=== PATIENT | male | born 1945 | race Two or more races ===

== ENCOUNTER → 2018-07-08 | Outpatient (CLI) | payer MEDICARE ==
--- NOTE | 2018-07-08 09:03 | US ---
EXAMINATION TYPE: US duplex aorta DATE OF EXAM: 07/08/2018 COMPARISON: NONE CLINICAL HISTORY: Z13.6 screening for cardiovascular disorders. EXAM MEASUREMENTS: Abdominal Aorta: Proximal: 1.8 cm Mid: 1.5 cm Distal: 1.5 cm Bifurcation: jim 1.0 cm machelle 0.9 cm IMPRESSION: No evidence for abdominal aortic aneurysm
== END ==
LOC: RADUSWWP 08:14
PROVIDERS: ATTEND Internal Medicine
DX: Z13.6 Encounter for screening for cardiovascular disorders (principal)
CPT/HCPCS: 93979

== ENCOUNTER → 2019-10-14 | Outpatient (CLI) | payer MEDICARE | END | disposition home or self-care (01) | LOC: LABWHC1 11:52 | PROVIDERS: ATTEND Internal Medicine Interventional Cardiology | DX: Z11.59 Encounter for screening for other viral diseases (principal) | CPT/HCPCS: 87635 ==

== ENCOUNTER 2019-10-17 11:23 | Day surgery (SDC) | payer MEDICARE ==
[2019-10-13 14:53] VITALS: BMI 22.6
[~2019-10-17 11:23] MED LIST: ALPRAZolam 0.25 MG TAB PO PRN; ALPRAZolam 0.5 MG TAB PO PRN; ASPIRIN 325 MG TAB PO ONE; ATORVASTATIN 80 MG TAB PO ONE; NITROGLYCERIN SL TABS 0.4 MG TAB SUBLINGUAL PRN; SODIUM CHLORIDE 0.9% 1,000 ML in EMPTY BAG 1 BAG IV ONE
[2019-10-17 12:11] LABS: Glucose,Whole Blood 169 mg/dL (75-99)
[2019-10-17] MEDS ORDERED: SODIUM CHLORIDE 0.9% 1,000 ML IV ONE (12:12)
[2019-10-17 12:15] VITALS: RESP 16
[2019-10-17 12:26] LABS: Basophils # (A) 0.1 k/uL (0-0.2); Basophils % (A) 1 %; Eosinophils # (A) 0.2 k/uL (0-0.7); Eosinophils % (A) 4 %; HCT 41.9 % (39.0-53.0); HGB 13.9 gm/dL (13.0-17.5); Lymphocytes # (A) 1.3 k/uL (1.0-4.8); Lymphocytes % (A) 24 %; MCH 28.8 pg (25.0-35.0); MCHC 33.2 g/dL (31.0-37.0); MCV 86.8 fL (80.0-100.0); Mean Platelet Volume 7.7; Monocytes # (A) 0.4 k/uL (0-1.0); Monocytes % (A) 7 %; Neutrophils # (A) 3.5 k/uL (1.3-7.7); Neutrophils % (A) 62 %; Platelet Count 160 k/uL (150-450); RBC 4.83 m/uL (4.30-5.90); RDW 13.4 % (11.5-15.5); WBC 5.6 k/uL (3.8-10.6)
[2019-10-17 12:44] LABS: African American GFR (CKD) >90 (>60 ml/min/1.73 sqM); Anion Gap 11 mmol/L; Blood Urea Nitrogen 25 mg/dL (9-20); Calcium 9.4 mg/dL (8.4-10.2); Carbon Dioxide 18 mmol/L (22-30); Chloride 110 mmol/L (98-107); Glucose 177 mg/dL (74-99); Non-African American GFR(CKD) 83 (>60 ml/min/1.73 sqM); Sodium 139 mmol/L (137-145)
[2019-10-17 12:51] LABS: Potassium 5.3 mmol/L (3.5-5.1)
[2019-10-17] MEDS ORDERED: MIDAZOLAM 2 MG/2 ML VIAL IVP ONE (14:02)
[2019-10-17] MEDS ORDERED: LIDOCAINE 1% INJ 10MG/ML (20 ML MDV) SQ ONE (14:06)
[2019-10-17] MEDS ORDERED: IOPAMIDOL-250 50ML BTL INTRAARTER ONE (14:26)
[2019-10-17] MEDS ORDERED: IOPAMIDOL-250 100ML BTL INTRAARTER ONE (14:26)
[2019-10-17] MEDS ORDERED: IOPAMIDOL-370 125ML BTL INJ ONE (14:27)
[2019-10-17] MEDS ORDERED: SODIUM CHLORIDE 0.9% 1,000 ML IV SCH (14:30)
[2019-10-17] MEDS ORDERED: RX INFO: IV CONTRAST WAS GIVEN 1 EACH MISC MISCELLANE PRN (14:30)
--- NOTE | 2019-10-17 15:47 | IR ---
Fluoroscopy HISTORY: Pain in right leg 3.2 minutes fluoroscopy time supplied to the referring clinician. 545 intraoperative C-arm images do cument the procedure. See dictated report from cardiology.
[2019-10-17 20:15] VITALS: BP 135/63; PULSE 57; TEMP 97.7
--- NOTE | 2019-10-17 22:21 | CC ---
CARDIAC CATHETERIZATION REPORT DATE OF SERVICE: 10/17/2019 PERFORMING PHYSICIAN: Kye Newby M.D. PROCEDURE PERFORMED: Selective right and left coronary angiogram. INDICATION: This is a 74-year-old gentleman with coronary artery disease and prior stenting of the right coronary artery as well as hypertension and dyslipidemia and peripheral arterial disease, who was experiencing symptoms of chest discomfort with exertion concerning for severe underlying coronary artery disease. Because of that, heart catheterization was advised. APPROACH: Right common femoral artery. COMPLICATIONS: None. LEVEL OF SEDATION: Moderate. PROCEDURE DESCRIPTION: After obtaining informed consent, the patient was brought to the cardiac labor relations consultant. The right common femoral artery was cannulated using micropuncture technique. The micropuncture wire passed easily. Then I placed a 6-Mohawk sheath at the right common femoral artery. After that I did selective right and left coronary angiogram with JR4 and JL4 catheters. The procedure was completed without any complication. SELECTIVE CORONARY ANGIOGRAM: 1. The right coronary artery is a large-caliber vessel and it is a dominant vessel. The RCA is chronically occluded in the distal portion. It fills by collateral from the left coronary system. The RCA seems to be occluded in-stent. The very proximal RCA has 60% to 70% lesion and the mid RCA had another 80% to 90% lesion. 2. The left main has mild disease only. It bifurcates into LCX and LAD. 3. The LCX is a large-caliber vessel. It is a nondominant vessel. The proximal LCX is angiographically normal and gives rise to an OM1 which seems to be normal. The mid LCX is normal and gives rise to a second obtuse marginal branch which is a small- caliber vessel and seems to be angiographically normal. The LCX continues after that as a medium-caliber vessel in the AV groove. 4. The LAD is a large-caliber vessel. The LAD itself appeared to have mild disease only. It does reach and wrap around the apex and also gives collateral to the right coronary system. The LAD gives rise to first, second and third diagonal branches, and they are all small- to medium-caliber vessels. CONCLUSION: 1. Chronic total occlusion of the distal right coronary artery which seems to be in- stent occlusion. 2. Mild to moderate nonobstructive disease involving the left coronary system. POST-PROCEDURE MANAGEMENT: 1. I would try maximized medical treatment at this point. 2. If the patient continues to be symptomatic on maximized medical treatment, will try doing PCI of the distal right coronary artery. MMMICHELLE / IJN: [id number] /
--- NOTE | 2019-10-18 00:05 | AN ---
ANGIOGRAPHY REPORT DATE OF SERVICE: October 17, 2019. PERFORMING PHYSICIAN: Kye Newby MD. PROCEDURE PERFORMED: 1. An abdominal aortogram. 2. Bilateral lower extremities runoff. INDICATION: This is a 74-year-old gentleman with history of peripheral arterial disease and prior revascularization in the past with unknown details, was experiencing severe bilateral lower extremities intermittent claudication. He was brought today to undergo an aortogram with runoff. APPROACH: Right common femoral artery. COMPLICATION: None. LEVEL OF SEDATION: Moderate. PROCEDURE DESCRIPTION: Please refer to diagnostic heart catheterization that was performed earlier today for access description. After the heart catheterization was performed, I advanced a pigtail catheter into the abdominal aorta at the level of the renal arteries then it was pulled back into above the bifurcation of the aorta to right and left common iliac arteries. The procedure was completed without any complication. SELECTIVE PERIPHERAL ANGIOGRAM: 1. The aorta appeared to be calcified with mild disease only. 2. Common Iliac Arteries: Both appear to have mild disease only. 3. Internal Iliac Arteries: Both appeared to be patent. 4. External Iliac Arteries: Both appear to have mild disease only. 5. Common Femoral Arteries: Both appear to have mild to moderate diffuse disease. 6. Profunda: Both are patent. 7. SFA: The right SFA appeared to have a tight lesion in the distal portion as well as the left SFA. 8. Popliteal: The right popliteal appeared to be occluded at the level of the Stanton canal and reconstitutes above the knee and the left popliteal appeared to have a tight lesion. 9. Below the knee: There is one vessel runoff below the knee on the right side with the peroneal and 2 vessels runoff below the knee on the left side with posterior tibial and peroneal. CONCLUSION: 1. Mild aortoiliac disease as described above. 2. Severe femoral-popliteal disease with severe bilateral SFA disease as well as occluded right popliteal and severe disease involving the left popliteal. 3. One vessel runoff below the knee on the right side with peroneal and two vessels runoff below the knee on the left side with posterior tibial and peroneal. POSTPROCEDURE MANAGEMENT: HARDNESS INSPECTOR of the right and left SFA as well as popliteals. MMODL / IJN: [id number] /
--- NOTE | 2019-10-20 10:57 | CDI ---
Outpatient Documentation Clarification Form Date: 10/20/19 CDS/Application Support Intern Name: Asia Robles Phone: If any questions, call Annelise Cates Exercise Instructor at [phone] Patient Name: Julio Mead Admit Date: 10/17/19 Discharge Date: 10/17/19 ATTENTION: The [facility] Coding Staff appreciate your assistance in clarifying documentation. Please respond to the clarification below the line at the bottom and electronically sign. The [facility] Coding staff will review the response and follow-up if needed. Please note: Queries are made part of the Legal Health Record. If you have any questions, please contact the Exercise Instructor. Dear Dr. Gilliland, Please provide clarification as to whether there was stenosis in the previously placed stent. In order to follow guidelines of coding We cannot code diagnoses documented as "probable", "suspected", "questionable", "rule out", or "workng diagnosis" or similar terms indicating uncertainty. Please clarify Thank you for your kind consideration. MTDD
--- NOTE | 2019-11-04 08:35 | CDI ---
Outpatient Documentation Clarification Form Date: 11/04/19 CDS/Mail Clerks Supervisor Name: Asia Robles Phone: If any questions, call Annelise Cates Web Page Designer at [phone] Patient Name: Julio Mead Admit Date: 10/17/19 Discharge Date: 10/17/19 ATTENTION: The [facility] Coding Staff appreciate your assistance in clarifying documentation. Please respond to the clarification below the line at the bottom and electronically sign. The [facility] Coding staff will review the response and follow-up if needed. Please note: Queries are made part of the Legal Health Record. If you have any questions, please contact the Web Page Designer. Dear Dr. Gilliland, Please provide clarification as to in [facility] artery the previous stent was placed. The H&*P states that a stent was previously placed the the LAD. The procedure note documents that it was placed in the RCA. Also please provide clarification as to whether there was stenosis in the previously placed stent. In order to follow guidelines of coding We cannot code diagnoses documented as "probable", "suspected", "questionable", "rule out", or "workng diagnosis" or similar terms indicating uncertainty. The procedure note documents that the RCA was occluded then proceeds to state that the RCA "seems to be" occluded in- stent. Please clarify In stent Thank you for your kind consideration. URI
== END 2019-10-17 22:05 | disposition home or self-care (01) ==
LOC: CATHCVL 11:23 → 3SCARD 19:54 → CATHCVL 22:05
PROVIDERS: ATTEND Internal Medicine Interventional Cardiology
DX: I25.110 Atherosclerotic heart disease of native coronary artery with unstable angina pectoris (principal); T82.855A Stenosis of coronary artery stent, initial encounter; I25.82 Chronic total occlusion of coronary artery; R94.39 Abnormal result of other cardiovascular function study; E11.51 Type 2 diabetes mellitus with diabetic peripheral angiopathy without gangrene; I70.213 Atherosclerosis of native arteries of extremities with intermittent claudication, bilateral legs; I10 Essential (primary) hypertension; Z87.891 Personal history of nicotine dependence; E78.00 Pure hypercholesterolemia, unspecified; Z79.84 Long term (current) use of oral hypoglycemic drugs; E78.5 Hyperlipidemia, unspecified; Z95.5 Presence of coronary angioplasty implant and graft; Z79.02 Long term (current) use of antithrombotics/antiplatelets; Z79.82 Long term (current) use of aspirin
CPT/HCPCS: 93454; 75625; 75716; 80048; 85025; J2250; J2001; Q9966 ×2; Q9967

== ENCOUNTER 2019-11-11 06:11 | Day surgery (SDC) | payer MEDICARE ==
[2019-11-09 12:01] VITALS: BMI 22.5
[2019-11-11] MEDS: SODIUM CHLORIDE 0.9% 1,000 ML IV SCH ×2 (07:05→18:47)
[2019-11-11 07:09] LABS: Glucose,Whole Blood 146 mg/dL (75-99)
[2019-11-11] MEDS: MIDAZOLAM 2 MG/2 ML VIAL IV ONE ×4 (07:37→09:49)
[2019-11-11] MEDS: LIDOCAINE 1% INJ 10MG/ML (20 ML MDV) SQ ONE ×2 (07:52→09:45)
[2019-11-11 07:54] LABS: Albumin 3.9 g/dL (3.5-5.0); Calcium 8.9 mg/dL (8.4-10.2); Potassium 4.3 mmol/L (3.5-5.1); Total Bilirubin 0.2 mg/dL (0.2-1.3)
[2019-11-11] MEDS: HEPARIN SODIUM 1,000 UN/ML (10ML VL) IV ONE ×2 (07:55→09:53)
[2019-11-11] MEDS ORDERED: SODIUM CHLORIDE 0.9% 500 ML 500 ML with niCARdipine 6.25 MG, NITROGLYCERIN-D5W PMX 0.05... IV ONE ×4 (10:00)
[2019-11-11] MEDS: fentaNYL (PF) 50 MCG/ML 2 ML AMP IV ONE ×2 (10:22→10:55)
[2019-11-11] MEDS ORDERED: niCARdipine Syringe (1,000 mcg/10 mL) INTRAARTER ONE (10:50)
[2019-11-11] MEDS ORDERED: NITROGLYCERIN 1000MCG/10ML SYRINGE INTRAARTER ONE (10:50)
[2019-11-11] MEDS ORDERED: CLOPIDOGREL 75 MG TAB PO ONE (11:26)
[2019-11-11] MEDS ORDERED: IOPAMIDOL-250 100ML BTL INTRAARTER ONE (11:45)
[2019-11-11] MEDS ORDERED: SODIUM CHLORIDE 0.9% 1,000 ML in EMPTY BAG 1 BAG IV SCH (12:00)
--- NOTE | 2019-11-11 13:36 | IR ---
Fluoroscopy HISTORY: Right leg pain 96.7 minutes fluoroscopy time supplied to the referring clinician. 715 intraoperative C-arm images d ocument the procedure. See dictated report from cardiology.
[2019-11-11 16:17] LABS: Glucose,Whole Blood 133 mg/dL (75-99)
--- NOTE | 2019-11-11 16:38 | LTR ---
November 11, 2019 To: Dr. Ang Mendenhall Re: Julio Mead (41) Dear Dr. Mendenhall: MrAdrienne Mead underwent today successful opening totally occluded right femoral artery and right popliteal artery with an excellent angiographic and without any complication. I want to thank you for allowing us to participate in his care. Please do not hesitate to call with any questions or concerns. Sincerely, MD AIRAM Olson / ROBERT: [id number] /
[2019-11-11 20:09] LABS: Glucose,Whole Blood 153 mg/dL (75-99)
[2019-11-11] MEDS ORDERED: ATORVASTATIN 20 MG TAB PO SCH (21:00)
[2019-11-11 21:26] VITALS: RESP 16
--- NOTE | 2019-11-11 21:59 | PCN ---
PROCEDURE NOTE DATE OF PROCEDURE: 11/11/2019 PROCEDURES PERFORMED: 1. Successful stenting of the right superficial femoral artery and right popliteal using 7.0 x 140 and 6.0 x 140 mm Zilver PTX drug-coated stent with excellent angiographic results. 2. Successful balloon angioplasty of the right popliteal and right posterior tibial artery with excellent angiographic results. 3. Selective angiogram of the right superficial femoral artery, right popliteal, right posterior tibial artery and left common femoral artery. INDICATION: This is a pleasant 74-year-old gentleman with diabetes, coronary artery disease, hypertension and dyslipidemia who was experiencing right leg intermittent claudication interfering with his daily activity 2A. He underwent an angiogram which revealed chronic total occlusion of the right SFA. He was brought today to undergo an intervention. APPROACH: Left common femoral artery and right posterior tibial artery. COMPLICATIONS: None. LEVEL OF SEDATION: Moderate, with sedation length of 226 minutes. PROCEDURE DESCRIPTION: After obtaining informed consent, the patient was brought to the cardiac r&d lab technician. The left common femoral artery was cannulated using micropuncture technique. The micropuncture wire passed easily. Then I placed a 6-Libyan 11 cm sheath at the left common femoral artery. At that point, anticoagulation was initiated using heparin with 6000 units at the beginning of the procedure with continuous ACT monitoring throughout the procedure. Subsequently I did select the right SFA using an 0.035 Gordon Advantage wire with the backup support of 5-Libyan RIM catheter. After that I did exchange my 11 cm 6-Libyan sheath for a 70 cm 6-Libyan sheath using 0.035 Gordon Advantage wire. Subsequently I did right lower extremity angiogram which revealed one-vessel runoff below the knee with peroneal artery as well as severe disease involving the distal right popliteal as well as chronic total occlusion of the right SFA. Attempting to cross the chronic total occlusion of the right SFA in antegrade technique was unsuccessful in spite of using an 0.014 wire, 0.018 wire, and an 0.035 shaft wire. Because of that, I decided to cross the CASINO CONTROLLER in retrograde technique using pedal access. At that point I accessed the right posterior tibial artery using micropuncture technique under ultrasound guidance, and then I placed a 5/6 slender sheath. Subsequently, continuous infusion of heparin, verapamil and nitroglycerin was initiated throughout the side-arm of the sheath. After that I was able to cross the chronic total occlusion of the right SFA using an 0.018 Davila-tip Glidewire. The wire was advanced all the way to the proximal right SFA and I injected contrast in the SFA to prove that I was in the true lumen. After that I did exchange my 0.018 Davila-tip Glidewire for an 0.018 stiff wire. I did not do atherectomy because I was in subintimal space. I did balloon angioplasty using a 5 mm chocolate balloon. The following angiogram showed inadequate angiographic results in the right SFA and proximal right popliteal, but good angiographic results in the distal right popliteal. At that point I did stent the right SFA and right popliteal using Zilver PTX drug-coated stent and I placed a 7.0 x 140 and 6.0 x 140 mm. For the right popliteal below the knee, I did WORKPLACE RELATIONS ADVISER ballooning using a drug-coated balloon which was 5 x 80 mm. Finally, for the right posterior tibial artery which was occluded, I did balloon angioplasty using a 2.5 mm balloon. The final angiogram showed excellent angiographic results. The pedal sheath was pulled out. Subsequently I did exchange my long sheath for a short sheath and then I did selective left common femoral artery angiogram. The procedure was completed without any complication. POST-PROCEDURE MANAGEMENT: 1. Dual anti-platelet therapy. 2. Risk factor modifications. 3. Follow up with the patient. MMODL / IJN: [id number] /
[2019-11-12] MEDS: SODIUM CHLORIDE 0.9% 1,000 ML IV SCH ×2 (02:49→09:12)
[2019-11-12 06:09] LABS: Glucose,Whole Blood 161 mg/dL (75-99)
[2019-11-12 08:06] LABS: Basophils % (A) 1 %; Eosinophils # (A) 0.2 k/uL (0-0.7); Eosinophils % (A) 3 %; HCT 37.3 % (39.0-53.0); HGB 12.3 gm/dL (13.0-17.5); Lymphocytes # (A) 1.1 k/uL (1.0-4.8); Lymphocytes % (A) 18 %; MCH 28.8 pg (25.0-35.0); MCHC 33.1 g/dL (31.0-37.0); MCV 87.2 fL (80.0-100.0); Mean Platelet Volume 7.4; Monocytes # (A) 0.3 k/uL (0-1.0); Monocytes % (A) 5 %; Neutrophils # (A) 4.4 k/uL (1.3-7.7); Neutrophils % (A) 72 %; Platelet Count 162 k/uL (150-450); RBC 4.28 m/uL (4.30-5.90); RDW 13.4 % (11.5-15.5); WBC 6.1 k/uL (3.8-10.6)
[2019-11-12 08:26] LABS: African American GFR (CKD) >90 (>60 ml/min/1.73 sqM); Anion Gap 5 mmol/L; Blood Urea Nitrogen 15 mg/dL (9-20); Calcium 8.7 mg/dL (8.4-10.2); Carbon Dioxide 24 mmol/L (22-30); Chloride 110 mmol/L (98-107); Glucose 148 mg/dL (74-99); Non-African American GFR(CKD) 83 (>60 ml/min/1.73 sqM); Potassium 4.3 mmol/L (3.5-5.1); Sodium 139 mmol/L (137-145)
--- NOTE | 2019-11-12 08:47 | P.DS ---
Providers Date of admission: 11/11/2019 Attending physician: Kye Newby Primary care physician: [facility] Course: This is a 74-year-old gentleman with coronary artery disease and peripheral arterial disease as well as diabetes and history of smoking was experiencing bilateral lower extremities intermittent claudication worse on the right side than the left side. He underwent an angiogram recently and that showed chronic total occlusion of the distal right SFA and right popliteal with extremely calcified peripheral arterial system. Yesterday he underwent successful recanalizing the STATE GAME PROTECTOR of the right SFA and right popliteal with a very complex and long procedure lasted about 3 and half hours and by the end I was able to recanalize the right SFA and right popliteal in retrograde technique from pedal stick. The patient was seen this morning. The right foot is very warm. I am able to feel dorsalis pedis pulse. The right popliteal pulse is excellent. The patient left groin which was the access site is soft and nontender and without any br uises. His right calf seems to be slightly tender and swollen. I anticipate that because of increased blood flow to the right leg. I am going also to rule out deep venous thrombosis by obtaining venous duplex study. The chance of having DVT is very minimal but will rule out completely. If he has no DVT by duplex study, the patient would be going to be discharged home on dual antiplatelet therapy along with statin. Also I did review the blood work which included a CBC and BMP and that came in to be unremarkable. I will follow-up with the patient next week in the office Plan - Discharge Summary Discharge Rx Participant: No New Discharge Prescriptions: New Atorvastatin [Lipitor] 20 mg PO HS #90 tab Clopidogrel [Plavix] 75 mg PO DAILY #90 tab Continue Ascorbic Acid [Vitamin C] 500 mg PO DAILY Zinc. 180 mg PO DAILY Super Beta Prosate 1 tablet PO DAILY Cholecalciferol (Vitamin D3) [Vitamin D3] 250 mcg PO DAILY Aspirin [Adult Low Dose Aspirin EC] 81 mg PO DAILY Metoprolol Succinate [Toprol XL] 25 mg PO DAILY Nitroglycerin 0.4 mg SL DIRECTED PRN PRN Reason: Chest Pain Discontinued Cilostazol [Pletal] 100 mg PO DAILY metFORMIN HCL [Glucophage] 500 mg PO QAM Discharge Medication List Ascorbic Acid [Vitamin C] 500 mg PO DAILY 10/13/19 [History] Aspirin [Adult Low Dose Aspirin EC] 81 mg PO DAILY 10/13/19 [History] Cholecalciferol (Vitamin D3) [Vitamin D3] 250 mcg PO DAILY 10/13/19 [History] Super Beta Prosate 1 tablet PO DAILY 10/13/19 [History] Zinc. 180 mg PO DAILY 10/13/19 [History] Metoprolol Succinate [Toprol XL] 25 mg PO DAILY 11/09/19 [History] Nitroglycerin 0.4 mg SL DIRECTED PRN 11/09/19 [History] Atorvastatin [Lipitor] 20 mg PO HS #90 tab 11/12/19 [Rx] Clopidogrel [Plavix] 75 mg PO DAILY #90 tab 11/12/19 [Rx] Follow up Appointment(s)/Referral(s): Kye Newby MD [STAFF PHYSICIAN] - 1 Week
[2019-11-12] MEDS ORDERED: [UNRECOGNIZED DRUG - OTHER] PO SCH (09:00)
[2019-11-12] MEDS ORDERED: ASPIRIN 81 MG PO SCH (09:00)
[2019-11-12] MEDS ORDERED: METOPROLOL SUCCINATE (ER) 25 MG TAB.ER.24H PO SCH (09:00)
[2019-11-12] MEDS ORDERED: CHOLECALCIFEROL 400 UNIT TAB PO SCH (09:00)
[2019-11-12] MEDS ORDERED: ZINC SULFATE 220 MG CAP PO SCH (09:00)
[2019-11-12] MEDS ORDERED: CLOPIDOGREL 75 MG TAB PO SCH (09:00)
[2019-11-12] MEDS ORDERED: ASCORBIC ACID 500 MG TAB PO SCH (09:00)
[2019-11-12] MEDS ORDERED: cilostazoL 100 MG TAB PO SCH (09:00)
--- NOTE | 2019-11-12 09:46 | US ---
EXAMINATION TYPE: US venous doppler duplex LE RT DATE OF EXAM: 11/12/2019 8:41 AM COMPARISON: NONE CLINICAL HISTORY: Edema-check for DVT. SIDE PERFORMED: Right TECHNIQUE: The lower extremity deep venous system is examined utilizing real time linear array sonog dylon with graded compression, doppler sonography and color-flow sonography. VESSELS IMAGED: External Iliac Vein (EIV) Common Femoral Vein Deep Femoral Vein Greater Saphenous Vein * Femoral Vein Popliteal Vein Small Saphenous Vein * Proximal Calf Veins (* superficial vessels) Right Leg: Negative for DVT No popliteal fossa lesion is seen. IMPRESSION: THIS EXAMINATION IS NEGATIVE FOR DVT WITHIN THE RIGHT LEG.
[2019-11-12 10:26] VITALS: BP 144/67; PULSE 67; TEMP 97.9
== END 2019-11-12 11:30 | disposition home or self-care (01) ==
LOC: CATHCVL 06:11 → 3SCARD 11:48 → CATHCVL 11-12 11:30
PROVIDERS: ATTEND Internal Medicine Interventional Cardiology
DX: I70.213 Atherosclerosis of native arteries of extremities with intermittent claudication, bilateral legs (principal); R60.0 Localized edema; M79.89 Other specified soft tissue disorders; E11.51 Type 2 diabetes mellitus with diabetic peripheral angiopathy without gangrene; I25.10 Atherosclerotic heart disease of native coronary artery without angina pectoris; I70.92 Chronic total occlusion of artery of the extremities; Z79.84 Long term (current) use of oral hypoglycemic drugs; I10 Essential (primary) hypertension; E78.5 Hyperlipidemia, unspecified; Z95.5 Presence of coronary angioplasty implant and graft; Z87.891 Personal history of nicotine dependence; Z79.82 Long term (current) use of aspirin; Z79.899 Other long term (current) drug therapy
CPT/HCPCS: 37226; 85347; 80053; 80048; 85025; 93971; C1894; C1725 ×4; C1769 ×6; C1887; C2623; C1874; J2250; J1644 ×2; J2001; J3010; Q9966

== ENCOUNTER 2020-10-31 05:40 | Day surgery (SDC) | payer MEDICARE ==
[2020-10-26 11:10] VITALS: BMI 23.3
[2020-10-31] MEDS ORDERED: ALPRAZolam 0.25 MG TAB PO PRN (05:56)
[2020-10-31] MEDS ORDERED: SODIUM CHLORIDE 0.9% 1,000 ML in EMPTY BAG 1 BAG IV ONE (05:56)
[2020-10-31] MEDS ORDERED: SODIUM CHLORIDE 0.9% 1,000 ML IV ONE (06:15)
[2020-10-31] MEDS ORDERED: ASPIRIN 325 MG TAB PO PRN (07:00)
[2020-10-31] MEDS: MIDAZOLAM 2 MG/2 ML VIAL IV ONE ×2 (07:45→07:46)
[2020-10-31] MEDS ORDERED: HYDROmorphone 0.5 MG/0.5 ML SYRINGE IVP ONE (07:45)
[2020-10-31] MEDS ORDERED: LIDOCAINE 1% INJ 10MG/ML (20 ML MDV) SQ ONE (07:46)
[2020-10-31] MEDS ORDERED: CLOPIDOGREL 75 MG TAB PO ONE (09:29)
[2020-10-31] MEDS ORDERED: IOPAMIDOL-370 100ML BTL INJ ONE (09:37)
[2020-10-31] MEDS ORDERED: SODIUM CHLORIDE 0.9% 1,000 ML in EMPTY BAG 1 BAG IV SCH (10:00)
[2020-10-31] MEDS ORDERED: ATORVASTATIN 80 MG TAB PO SCH (21:00)
--- NOTE | 2020-10-31 21:27 | AN ---
ANGIOGRAPHY REPORT DATE OF SERVICE: October 31, 2020. PERFORMING PHYSICIAN: Kye Newby MD. PROCEDURE PERFORMED: 1. Successful atherectomy of the left SFA using the orbital atherectomy device and using 1.5 mm chad. 2. Intravascular ultrasound (IVUS) of the left SFA and left popliteal. 3. Successful stenting of the mid left SFA using 7.0 x 140 mm Zilver PTX drug-coated stent with excellent angiographic results. 4. Left lower extremity angiogram. 5. Right common femoral artery angiogram. 6. Ultrasound guidance access of the right common femoral artery. INDICATION: This is a very pleasant 75-year-old gentleman who was struggling with critical limb ischemia of the left foot. He underwent an angiogram recently and that revealed tight lesion involving the left SFA and left popliteal and because of that he was brought today to undergo an intervention. APPROACH: Right common femoral artery. COMPLICATION: None. LEVEL OF SEDATION: Moderate with sedation length of 114 minutes. PROCEDURE DESCRIPTION: After obtaining an informed consent, the patient was brought to the cardiac labor and delivery nurse. The right common femoral artery was cannulated using micropuncture technique under ultrasound guidance, the micropuncture wire passed easily. Then I placed a 6-Lithuanian sheath 70 cm which was a Raabe sheath at the right common femoral artery. Please note that I had pre-dilated before I placed the sheath using 5-Lithuanian and subsequently 6-Lithuanian dilator. After that, I did select the left SFA using 0.035 Glidewire with the backup support of 5-Lithuanian RIM catheter. I had a hard time advancing the sheath up and over from the right to the left, but I was able to do it using stiff Glidewire with the backup support of multipurpose catheter. Initially I went up and over with 035 a regular Glidewire and then I exchanged that over a glide catheter into a stiff Glidewire and after that I placed multipurpose sheath over the wire before I advanced the sheath over the stiff Glidewire, as well as multipurpose catheter all the way to the left common femoral artery. Left lower extremity angiogram was performed and revealed 2 vessel runoff below the knee with posterior tibial and peroneal and also severe calcified lesion involving the left popliteal and left SFA with intermediate lesion and [id number] disease involving the left common femoral artery. I did wire the left popliteal and left SFA using a [address] wire. After that intravascular ultrasound was performed and revealed the diameter of the left popliteal and left SFA between 5-6 mm. Atherectomy of the left popliteal and left SFA was performed using the orbital atherectomy device from [facility] and using 1.5 mm chad. I did that over a ViperWire. I did exchange my [address] wire into 014 ViperWire using a 035 CXI catheter. After that, after the atherectomy was performed of the left popliteal and left SFA using low and medium, and high speed. I did balloon angioplasty of the left popliteal/left SFA as well as to the ostial left SFA. For the left popliteal/left SFA, I did balloon angioplasty using 5 mm balloon and for the ostial left SFA, I did balloon angioplasty using 6 x 40 mm Chocolate balloon. The following angiogram showed good results in the left popliteal, but there was a lesion in the left SFA, seems to be flow- limiting, which I decided to stent. I did deploy a 7 x 140 mm Zilver PTX drug-coated stent in the mid left SFA and I post dilated that stent using 6 mm balloon. For the left popliteal, I did drug-coated balloon and that was 5 mm balloon. For the ostial left SFA I did again a drug-coated balloon and that was 6 mm x 40 mm balloon. Final angiogram showed excellent angiographic results and the procedure was completed without any complication. After that, I did exchange my long sheath into short sheath using 0.035 stiff Glidewire before I did selective right common femoral artery angiogram. The procedure was completed without any complication. POSTPROCEDURE MANAGEMENT: 1. Dual anti-platelet therapy. 2. Aggressive cholesterol control. 3. Risk factor modifications. 4. Follow up with the patient. MMODL / IJN: [id number] /
[2020-11-01 06:31] LABS: African American GFR (CKD) 62 (>60 ml/min/1.73 sqM); Anion Gap 4 mmol/L; Blood Urea Nitrogen 25 mg/dL (9-20); Calcium 8.7 mg/dL (8.4-10.2); Carbon Dioxide 26 mmol/L (22-30); Chloride 109 mmol/L (98-107); Glucose 135 mg/dL (74-99); Non-African American GFR(CKD) 53 (>60 ml/min/1.73 sqM); Potassium 4.7 mmol/L (3.5-5.1); Sodium 139 mmol/L (137-145)
[2020-11-01 07:36] VITALS: BP 139/69; PULSE 45; RESP 18; TEMP 97.8
[2020-11-01] MEDS ORDERED: NON FORMULARY DRUG (Tadalafil [Cialis] 5 MG Tablet) PO SCH (09:00)
[2020-11-01] MEDS ORDERED: CHOLECALCIFEROL 25 MCG (1000 IU) TABLET PO SCH (09:00)
[2020-11-01] MEDS ORDERED: ZINC SULFATE 220 MG CAP PO SCH (09:00)
[2020-11-01] MEDS ORDERED: METOPROLOL SUCCINATE (ER) 25 MG TAB.ER.24H PO SCH (09:00)
[2020-11-01] MEDS ORDERED: CLOPIDOGREL 75 MG TAB PO SCH (09:00)
[2020-11-01] MEDS ORDERED: ASPIRIN 81 MG PO SCH (09:00)
[2020-11-01] MEDS ORDERED: MAGNESIUM OXIDE 400 MG TAB PO SCH (09:00)
[2020-11-01] MEDS ORDERED: ASCORBIC ACID 500 MG TAB PO SCH (09:00)
[2020-11-01 09:34] LABS: Basophils # (A) 0.06 X 10*3/uL (0.00-0.10); Eosinophils # (A) 0.22 X 10*3/uL (0.04-0.35); Eosinophils % (A) 3.5 %; HGB 13.5 g/dL (13.0-17.0); Lymphocytes # (A) 1.58 X 10*3/uL (0.90-5.00); Lymphocytes % (A) 25.1 %; MCH 27.8 pg (27.0-32.0); MCHC 31.4 g/dL (32.0-37.0); MCV 88.7 fL (80.0-97.0); Mean Platelet Volume 11.1 fL (9.5-12.2); Monocytes # (A) 0.53 X 10*3/uL (0.20-1.00); Monocytes % (A) 8.4 %; Neutrophils # (A) 3.88 X 10*3/uL (1.80-7.70); Neutrophils % (A) 61.5 %; Platelet Count 143 X 10*3/uL (140-440); RBC 4.85 X 10*6/uL (4.40-5.60); RDW 13.2 % (11.5-14.5)
--- NOTE | 2020-11-01 09:56 | DS ---
DISCHARGE SUMMARY ADMISSION DATE: October 31, 2020. DISCHARGE DATE: November 01, 2020 BRIEF HISTORY: This is a 75-year-old gentleman who underwent yesterday an atherectomy and balloon angioplasty and stenting of the left SFA from right groin approach. The patient was seen this morning. The right groin is soft and nontender and without any bruises. The patient is going to be discharged home on dual anti-platelet therapy along with moderate intensity statin. I will follow up with the patient next week in the office. AIRAM / CHRISTIANAN: [id number] /
--- NOTE | 2020-11-01 11:33 | IR ---
EXAMINATION TYPE: IR stent intravas non coronary DATE OF EXAM: 10/31/2020 CLINICAL HISTORY: Peripheral vascular disease, arterial stenosis. TECHNIQUE: Fluoroscopy. COMPARISON: None. FINDINGS: Fluoroscopic guidance was provided during lower extremity angiogram with stent insertion p rocedure performed by Dr. Newby. A total of 31.5 minutes of fluoroscopic time was utilized during the procedure and 857 spot images are acquired. Please refer to procedure note for further details. IMPRESSION: As Above.
== END 2020-11-01 09:20 | disposition home or self-care (01) ==
LOC: CATHCVL 05:40 → 6NMEDSUR 12:59 → CATHCVL 11-01 09:20
PROVIDERS: ATTEND Internal Medicine Interventional Cardiology
DX: I70.222 Atherosclerosis of native arteries of extremities with rest pain, left leg (principal); I25.10 Atherosclerotic heart disease of native coronary artery without angina pectoris; I10 Essential (primary) hypertension; E78.5 Hyperlipidemia, unspecified; Z95.820 Peripheral vascular angioplasty status with implants and grafts; F17.200 Nicotine dependence, unspecified, uncomplicated; Z79.02 Long term (current) use of antithrombotics/antiplatelets; Z79.899 Other long term (current) drug therapy
CPT/HCPCS: 37227; 37252; 80048; 85025; C1894 ×2; C1769 ×8; C1714; C1753; C2623 ×2; C1874; C1725; J2250; J2001; J1644; J1170; Q9967

== ENCOUNTER → 2022-03-20 | Outpatient (CLI) | payer MEDICARE ==
--- NOTE | 2022-03-20 15:36 | CT ---
EXAMINATION TYPE: CT angio neck CT DLP: 483 mGycm, Automated exposure control for dose reduction was used. DATE OF EXAM: 03/20/2022 3:16 PM COMPARISON: None. CLINICAL INDICATION:Male, 76 years old with history of G45.9 TIA; PHH, TECHNIQUE: Axially acquired helical CT angiogram of the neck was obtained with contrast utilizing 65 cc of Isovue-370 administered intravenously. Axial images are supplemented with 3D reconstructions wh ich were post-processed at an independent workstation. NASCET criteria used. FINDINGS: CTA NECK: Right Carotid System: The common carotid artery and external carotid artery are patent. There is 50% stenosis at the origin of the right internal carotid artery secondary to calcified and noncalcified plaque. Just past this in the internal carotid artery is a thin filling defect consistent with a web measuring approximately 5 mm (series 7, image 19). The remaining portions of the internal carotid artery demonstrate normal size without significant narrowing. Left Carotid System: The common carotid artery and external carotid artery are patent. There is 90% stenosis of the origin of the left internal carotid artery secondary to calcified and noncalcified plaque. The remaining po rtions of the internal carotid artery demonstrate normal size without significant narrowing. Vertebral arteries are patent. Moderate stenosis of the origin of the left vertebral artery secondary to calcified plaque. Left vertebral artery is dominant. No stenosis involving the right vertebral ar valery. 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 Moderate stenosis at the origin of the left common carotid arter y secondary to calcified and noncalcified plaque. Moderate stenosis at the origin of the left subclav nic artery secondary to calcified and noncalcified plaque. The origins of the great vessels are paten t. Mild to moderate centrilobular emphysematous changes. Degenerative changes of the cervical spine. IMPRESSION: 1. 50% stenosis of the origin of the right internal carotid artery with a web demonstrated just past this within the right internal carotid artery. 2. Approximately 90% stenosis at the origin of the left internal carotid artery secondary to calcifie d and noncalcified plaque.
== END | disposition home or self-care (01) ==
LOC: RADCTMAIN 13:48
PROVIDERS: ATTEND Internal Medicine Interventional Cardiology
DX: I65.23 Occlusion and stenosis of bilateral carotid arteries (principal)
CPT/HCPCS: 82565; 84520; 70498; 36415; Q9967

== ENCOUNTER 2022-04-11 05:49 | Inpatient (IN) | payer MEDICARE ==
[~2022-04-11 05:49] MED LIST changes: -ASPIRIN 325 MG TAB PO ONE; +ASPIRIN 325 MG TAB PO PRN; -ATORVASTATIN 80 MG TAB PO ONE; +CLOPIDOGREL 75 MG TAB PO PRN; +HEPARIN SODIUM,PORCINE 10,000 UNIT in SODIUM CHLORIDE 0.9% 1,000 ML IRRIGATION PRN; +HEPARIN SODIUM,PORCINE 2,500 UNIT in SODIUM CHLORIDE 0.9% 250 ML IRRIGATION PRN; +ZOLPIDEM 5 MG TAB PO PRN
[2022-04-11] MEDS ORDERED: ASPIRIN 81 MG ONE (06:21)
[2022-04-11 06:41] LABS: Glucose,Whole Blood 194 mg/dL (70-110)
[2022-04-11 06:43] LABS: Basophils # (A) 0.1 k/uL (0-0.2); Basophils % (A) 1 %; Eosinophils # (A) 0.3 k/uL (0-0.7); Eosinophils % (A) 4 %; HCT 38.9 % (39.0-53.0); HGB 13.5 gm/dL (13.0-17.5); Lymphocytes # (A) 1.9 k/uL (1.0-4.8); Lymphocytes % (A) 31 %; MCH 29.7 pg (25.0-35.0); MCHC 34.7 g/dL (31.0-37.0); MCV 85.5 fL (80.0-100.0); Mean Platelet Volume 7.9; Monocytes # (A) 0.4 k/uL (0-1.0); Monocytes % (A) 6 %; Neutrophils # (A) 3.5 k/uL (1.3-7.7); Neutrophils % (A) 56 %; Platelet Count 167 k/uL (150-450); RBC 4.55 m/uL (4.30-5.90); RDW 12.6 % (11.5-15.5); WBC 6.1 k/uL (3.8-10.6)
[2022-04-11 06:53] LABS: Calcium 9.1 mg/dL (8.4-10.2); Potassium 4.9 mmol/L (3.5-5.1)
[2022-04-11 06:56] VITALS: RESP 16; TEMP 98.1
[2022-04-11] MEDS ORDERED: ceFAZolin 2 GM in SODIUM CHLORIDE 0.9% 500 ML 500 ML IRRIGATION PRN (07:00)
[2022-04-11] MEDS ORDERED: HEPARIN SODIUM 1,000 UN/ML (10ML VL) ONE (08:39)
[2022-04-11] MEDS ORDERED: MIDAZOLAM 2 MG/2 ML VIAL IV ONE (08:43)
[2022-04-11] MEDS ORDERED: LIDOCAINE 1% INJ 10MG/ML (30 ML VIAL-PF) SQ ONE ×2 (08:44)
[2022-04-11] MEDS ORDERED: HEPARIN SODIUM 1,000 UN/ML (10ML VL) IV ONE (08:53)
[2022-04-11] MEDS ORDERED: IOPAMIDOL-370 100ML BTL INJ ONE (09:24)
[2022-04-11] MEDS ORDERED: IOPAMIDOL-250 100ML BTL INTRAARTER ONE (09:25)
[2022-04-11] MEDS ORDERED: NALOXONE 0.4 MG/ML 1 ML VIAL IVP PRN (09:33)
--- NOTE | 2022-04-11 09:41 | P.PCN ---
Date of Procedure: 04/11/22 Operative Findings: An aortic arch and carotid angiogram Performing physician Kye Newby M.D. Procedure performed #1 an aortic arch angiogram #2 selective left common and left carotid angiogram #3 selective right common femoral artery angiogram #4 ultrasound-guided access of the right common femoral artery Indication This is a 76-year-old gentleman was coronary artery disease and lower extremities peripheral arterial disease as well as diabetes and hypertension and dyslipidemia who was diagnosed recently was critical disease involving the left internal carotid artery. He was brought to undergo an angiogram and intervention on the left carotid artery. Approach Right common femoral artery Complication None Level of sedation Moderate with a sedation length of 30 minutes Procedure description After obtaining an informed consent the patient was brought to the cardiac test lab technician. The right common femoral artery was cannulated using puncture technique under ultrasound guidance, the micropuncture wire passed easily then I placed a 6-Hebrew sheath 90 cm which is a shuttle sheath after I predilated using 5 and 6 and 7-Hebrew dilator. After that I did an aortic arch angiogram using 6-Hebrew pigtail catheter before I did engage the left common carotid artery using JB2 catheter over stent the Glidewire then I did advanced a 90 cm shuttle sheath over the wire and dilator to the mid left common carotid artery. Selective left internal carotid artery angiogram was performed using manual injection. After that we decided to stop and not to intervene on the left carotid artery. By the end I did selective right common femoral artery angiogram. The procedure was completed without any complication Selective aortic arch and carotid angiogram #1 the aortic arch is a type II arch with mild disease only. #2 the left common carotid artery appears to have mild disease only. Gives rises into the left external carotid artery which has mild disease only and left internal carotid artery which has a critical lesion appears to be in the range of 99.9% but the internal carotid artery distal to the lesion becomes a very small in diameter. Conclusion #1 type II aortic arch #2 critical disease involving the left internal carotid artery and internal carotid artery distal to the lesion becomes very small caliber vessel. Postprocedure management Giving the above anatomy I advised the patient to be seen by a vascular surgeon and I believe he'll benefit better with carotid endarterectomy giving the size of the internal carotid and I will critical lesion is. This plan was discussed with the patient and he is in full understanding and agreement.
--- NOTE | 2022-04-11 09:43 | P.PCN ---
Date of Procedure: 04/11/22 Operative Findings: AN ABDOMINAL AORTOGRAM AND BILATERAL LOWER EXTREMITIES RUNOFF PERFORMING PHYSICIAN: Kye Newby MD PROCEDURE PERFORMED: 1. An abdominal aortogram 2. Bilateral lower extremities runoff INDICATION: This is a 76-year-old gentleman with lower extremities peripheral arterial disease and prior stenting of bilateral SFA/popliteal was seen in the office complaining of bilateral lower extremities intermittent claudication interfering with his daily activity and he underwent an arterial Doppler study which came in to be abnormal as well. COMPLICATION: None LEVEL OF SEDATION: Moderate was sedation length of 10 minutes APPROACH: Right common femoral artery PROCEDURE DESCRIPTION: After obtaining informed consent and explaining the procedure benefits, risks, and complications, the patient was brought to the cardiac cardiac cath lab manager. The right groin was prepped and draped in sterile fashion. The right common femoral artery was cannulated using micropuncture technique, under ultrasound guidance. A micropuncture wire was advanced, and the micropuncture sheath was advanced over the wire, then the micropuncture sheath was exchanged over an 0.35 wire into a 5-Kyrgyz sheath dilator assembly then the wire and dilator were removed and sheath was flushed. We did an abdominal aortogram and bilateral lower extremities runoff using 5- Kyrgyz pigtail catheter using a power injection. The catheter was initially placed at the level of the renal arteries, and it was pulled into above the bifurcation of the aorta into right and left common iliac arteries. The procedure was completed and there was no complications. SELECTIVE PERIPHERAL ANGIOGRAM: The abdominal aorta: Appears to have mild disease only. The common iliac arteries: Appeared to have mild disease only. The external iliac arteries: Appeared to have mild disease only. The internal iliac arteries: Both internal iliac appeared to be patent The common femoral arteries: Have an intermediate disease bilaterally Superficial femoral arteries: Both SFA appears to have mild to moderate diffuse disease with no high-grade stenosis identified. Popliteal arteries: Both appear to have mild to moderate diffuse disease Below the knees: 2 vessels run off below the knee bilaterally CONCLUSION: Mild aortoiliac disease Patent bilateral SFA stents POSTPROCEDURE MANAGEMENT: Medical treatment and follow-up with the patient
[2022-04-11] MEDS ORDERED: SODIUM CHLORIDE 0.9% 1,000 ML in EMPTY BAG 1 BAG IV SCH (09:45)
--- NOTE | 2022-04-11 10:22 | IR ---
EXAMINATION TYPE: IR angio carotid cereb LT DATE OF EXAM: 04/11/2022 COMPARISON: NONE HISTORY: Fluoroscopy time. Fluoroscopy was provided to the referring clinician.
[2022-04-11 16:58] VITALS: BP 188/82; PULSE 52
== END 2022-04-11 14:45 | disposition home or self-care (01) | DRG 68 ==
LOC: 2ORMAIN 05:49
PROVIDERS: ADMIT Internal Medicine Interventional Cardiology; ATTEND Internal Medicine Interventional Cardiology
PROC: B3141ZZ Fluoroscopy of Left Common Carotid Artery using Low Osmolar Contrast (ICD-10-PCS; principal; 2022-04-11 07:30)
PROC: B3101ZZ Fluoroscopy of Thoracic Aorta using Low Osmolar Contrast (ICD-10-PCS; principal; 2022-04-11 07:30)
PROC: B41F1ZZ Fluoroscopy of Right Lower Extremity Arteries using Low Osmolar Contrast (ICD-10-PCS; principal; 2022-04-11 07:30)
PROC: B3171ZZ Fluoroscopy of Left Internal Carotid Artery using Low Osmolar Contrast (ICD-10-PCS; principal; 2022-04-11 07:30)
PROC: B41D1ZZ Fluoroscopy of Aorta and Bilateral Lower Extremity Arteries using Low Osmolar Contrast (ICD-10-PCS; 2022-04-11 07:30)
DX: I65.23 Occlusion and stenosis of bilateral carotid arteries (principal); Q25.49 Other congenital malformations of aorta; I25.10 Atherosclerotic heart disease of native coronary artery without angina pectoris; E11.51 Type 2 diabetes mellitus with diabetic peripheral angiopathy without gangrene; I70.213 Atherosclerosis of native arteries of extremities with intermittent claudication, bilateral legs; Z79.84 Long term (current) use of oral hypoglycemic drugs; E78.5 Hyperlipidemia, unspecified; I10 Essential (primary) hypertension; I25.82 Chronic total occlusion of coronary artery; Z53.09 Procedure and treatment not carried out because of other contraindication; Z95.828 Presence of other vascular implants and grafts; Z79.02 Long term (current) use of antithrombotics/antiplatelets; Z79.82 Long term (current) use of aspirin; Z79.899 Other long term (current) drug therapy
CPT/HCPCS: 36200; 75625; 75716; 76937; 80048; 85025

== ENCOUNTER 2022-06-03 06:40 | Inpatient (IN) | payer MEDICARE ==
[2022-05-29 10:02] VITALS: BMI 25.8
[2022-06-03] MEDS ORDERED: HYDROmorphone 0.5 MG/0.5 ML SYRINGE IVP PRN (06:43)
[2022-06-03] MEDS ORDERED: NITROGLYCERIN-D5W PMX 50 MG in DEXTROSE/WATER 1 250ML.BAG IV SCH (06:43)
[2022-06-03] MEDS ORDERED: DEXAMETHASONE SOD PHOSPHATE 4 MG/ML 1 ML VIAL IV ONE (06:43)
[2022-06-03 07:39] LABS: Glucose,Whole Blood 244 mg/dL (70-110)
[2022-06-03] MEDS: LACTATED RINGERS 1,000 ML IV SCH (07:55)
[2022-06-03] MEDS ORDERED: INSULIN ASPART (NovoLOG) 100 UNIT/ML VIAL SQ ONE ×2 (08:02→12:30)
[2022-06-03] MEDS ORDERED: LIDOCAINE 1% INJ 10MG/ML (20 ML MDV) ONE (08:02)
--- NOTE | 2022-06-03 08:04 | P.PN ---
Progress Note - Text Progress Note Date: 06/03/22 Long discussion had with the patient in regards to wishes. He is a full code however he is adamantly against receiving blood product. It was discussed that even if it is a life or situation he still wishes to not receive any blood products due to "covid concerns". He states his immediate family is aware of this as well.
[2022-06-03] MEDS ORDERED: MIDAZOLAM 2 MG/2 ML VIAL IVP ONE (08:05)
[2022-06-03 08:47] LABS: Glucose,Whole Blood 242 mg/dL (70-110)
[2022-06-03] MEDS ORDERED: HYDROmorphone (PF) 1 MG/ML ONE (08:49)
[2022-06-03] MEDS ORDERED: NEOSTIGMINE 1 MG/ML 10 ML VIAL ONE (08:49)
[2022-06-03] MEDS ORDERED: GLYCOPYRROLATE 0.2 MG/ML 2 ML VIAL ONE (08:49)
[2022-06-03] MEDS ORDERED: ePHEDrine 50 MG/ML 1 ML VIAL ONE (08:49)
[2022-06-03] MEDS ORDERED: PROPOFOL 10 MG/ML 20 ML VIAL IV ONE (08:49)
[2022-06-03] MEDS ORDERED: LIDOCAINE 2% INJ 20 MG/ML (2 ML VIAL) ONE (08:49)
[2022-06-03] MEDS ORDERED: ROCURONIUM 10 MG/ML (5 ML VIAL) IV ONE (08:49)
[2022-06-03] MEDS ORDERED: ONDANSETRON 4 MG/2 ML VIAL ONE (08:49)
[2022-06-03] MEDS ORDERED: PROTAMINE SULFATE 10 MG/ML 5 ML VIAL IV ONE (08:49)
[2022-06-03] MEDS ORDERED: SUCCINYLCHOLINE CHLORIDE 200 MG/10 ML VIAL IV ONE (08:49)
[2022-06-03] MEDS ORDERED: fentaNYL (PF) 50 MCG/ML 2 ML AMP ONE (08:49)
[2022-06-03] MEDS ORDERED: LIDOCAINE 1% INJ 10MG/ML (20 ML MDV) SQ ONE (09:23)
[2022-06-03] MEDS ORDERED: LACTATED RINGERS 1,000 ML IV ONE (10:09)
[2022-06-03] MEDS ORDERED: THROMBIN (BOVINE) 5,000 UNIT VIAL TOPICAL ONE (10:19)
[2022-06-03] MEDS ORDERED: GELATIN SPONGE,ABSORB (LARGE) 1 EACH SPONGE TOPICAL ONE (10:19)
[2022-06-03] MEDS ORDERED: BENZOCAINE/MENTHOL LOZENG 1 EACH LOZENGE MUCOUS MEM PRN (11:43)
[2022-06-03] MEDS ORDERED: ACETAMINOPHEN TAB 325 MG TAB PO PRN (11:43)
[2022-06-03] MEDS ORDERED: MAG HYDROX/AL HYDROX/SIMETH 30 ML CUP PO PRN (11:43)
--- NOTE | 2022-06-03 11:43 | P.OP ---
Date of Procedure: 06/03/22 Description of Procedure: Preoperative Diagnosis: High-grade left Internal carotid artery stenosis Postoperative Diagnosis: Same Procedure: Left carotid endarterectomy with patch angioplasty Anesthesia: GET Surgeon: Kait Lucas DO Estimated Blood Loss (ml): 70 mL IV Fluids: See records Urine Output: See records Specimen: Left carotid plaque Condition: stable Disposition: PACU Findings and indications: Patient is a 76-year-old male with high-grade left internal carotid artery stenosis. He previously undergone angiogram with the intent of having a carotid stent placed however due to the size of his vessels there was not performed and he was recommended undergo a an open carotid endarterectomy. Risks and benefits of previously been discussed with the patient and his significant other. They seemingly understood. Prior to the procedure again the patient was refusing any sort of blood product administration and risks and benefits of this were discussed. He was adamant about not having any blood transfusion. Procedure in detail: After written informed consent was obtained the patient all risks benefits and competitions were described the patient is brought to the operative suite and laid in a supine position. The area of the neck was prepped and draped in usual sterile fashion after appropriate anesthetic was performed per the anesthesiologist. A timeout was performed in normal fashion antibiotics were administered prior to incision. An oblique incision was then created just anterior to the sternocleidomastoid musculature with a 10 blade scalpel and dissection was carried down to the carotid sheath. The carotid sheath was then entered after facial vein was located and suture ligated in normal fashion. The common carotid, internal carotid, external carotid and superior thyroid arteries were located and dissected free in a meticulous fashion circumferentially and controlled with vessel loops. Attention was then placed to locating the vagus nerve as well as hypoglossal nerve which were both spared. Once controlled, patient was administered heparin and followed with ACTs for appropriate heparinization. Once ACT was appropriate, the proximal and distal aspects of the dissection were then controlled with vascular clamps. Arteriotomy was then created with 11 blade scalpel and extended with Arriaga Tate scissors. There was significant thrombus in the proximal ICA with return of dark appearing blood on backbleeding, this did improve to more normal-appearing blood flow. Attempts were made to perform some pressures however were unable to do so due to anesthesia therefore proceeding with the endarterectomy with a [place] elevator. The plaque was transected proximally and then feathered at the distal aspect of the internal carotid artery and removed. The area was copiously irrigated with heparinized saline and all free debris was removed. A 0.8 x 8 cm bovine pericardial patch was then chosen and patch angioplasty was performed with 6-0 Prolene suture in a running fashion. Prior to last sutures being placed the inflow was released flushing any free debris out of the patch. This was reclamped and the internal carotid artery was released revealing adequate appearing backflow however not overly brisk and was once again reclamped. The external carotid and superior thyroid artery were then released followed by the common carotid artery to allow any free debris to be flushed into the external system. Final sutures were placed and secured. Internal carotid artery control was then released. Good pulsatile flow was noted through the patch and a Doppler was utilized demonstrating good brisk flow into the internal, external carotid arteries without any signs of obstruction. Hemostasis was then assured with interrupted sutures of 6-0 Prolene as well as thrombin and Gelfoam. A 10-Welsh SAMARA drain was then placed in normal fashion and secured with 3-0 nylon suture. The incision was then closed in a multilayer fashion after hemostasis was assured. The skin was then cleansed and dressings were placed. Patient tolerated the procedure well and was following commands and moving all extremities. Patient was then sent to PACU for recovery.
--- NOTE | 2022-06-03 11:44 | P.ANPRN ---
Procedure Note - Anesthesia - Invasive Line Right Arterial Line Time Out Performed: Yes Date of Procedure: 06/03/22 Time of Procedure: 08:05 Location of Patient: PreOp Preparation: Sterile Prep Arterial Line Location: Radial Ultrasound Used: No Purpose - Visualization and Identification of Vasculature: No Narrative: Central line placement per sterile protocol utilized.
[2022-06-03 12:23] LABS: Glucose,Whole Blood 228 mg/dL (70-110)
[2022-06-03] MEDS ORDERED: METOCLOPRAMIDE 5 MG/ML 2 ML VIAL IVP STA (12:30)
[2022-06-03 13:19] LABS: Glucose,Whole Blood 225 mg/dL (70-110)
--- NOTE | 2022-06-03 14:07 | P.PN ---
Progress Note - Text Progress Note Date: 06/03/22 Patient just arrived in the ICU from recovery. No acute complaints. Vital signs have been stable. SAMARA drain with scant amount of serosanguineous fluid. Patient is alert and oriented 3. No focal deficits noted. The impression and plan of care has been dictated as directed. Dr. Lucas I performed a history and examination of this patient, discussed the same with the dictator. I agree with the dictator's note ,documented as a scribe. Any additional findings or plans will be noted.
[2022-06-03] MEDS: HEPARIN SODIUM,PORCINE/PF 5,000 UNIT/0.5 ML SYRINGE SQ SCH (16:29)
[2022-06-03] MEDS: HYDROcodone/APAP 5-325MG 1 EACH TAB PO PRN ×2 (16:29→21:01)
[2022-06-03 16:37] LABS: Glucose,Whole Blood 174 mg/dL (70-110)
--- NOTE | 2022-06-03 17:50 | P.CONS ---
History of Present Illness - Reason for Consult Consult date: 06/03/22 - History of Present Illness Patient 76-year-old male with PMH of CAD, PAD, carotid stenosis, diabetes mellitus, hypertension, dyslipidemia that presents to [facility] for elective surgery. He underwent left carotid endarterectomy with patch angioplasty with Dr. Lucas. [facility] has been consulted for medical management of this patient. Patient was seen and examined in the ICU after surgery. Patient currently reports 6 out of 10 in severity pain in his left neck. He reports fatigue. He denies any headache, lower extremity edema, nausea vomiting, fever or chills, cough, chest pain, shortness of breath, palpitations, changes in urination or bowel habits. No changes in appetite or weight. He denies any dizziness, numbness/weakness/tingling of extremities. Pertinent positives and negatives as discussed in HPI, a complete review of systems was performed and all other systems are negative. General: non toxic, no distress, appears at stated age Derm: warm, dry Head: atraumatic, normocephalic, symmetric, left neck SAMARA drain intact with serosanguineous fluid Eyes: EOMI, no lid lag, anicteric sclera Mouth: no lip lesion, mucus membranes moist Cardiovascular: S1S2 reg, no murmur Lungs: CTA bilateral, no rhonchi, no rales , no accessory muscle use Abdominal: soft, nontender to palpation, no guarding, no appreciable organomegaly Ext: no gross muscle atrophy, no edema, no contractures Neuro: no focal neuro deficits Psych: Alert, oriented, appropriate affect #Diabetes mellitus with hyperglycemia Start low-dose insulin sliding scale. Managed on metformin at home. Diabetic diet. Accu-Cheks before meals at bedtime along with hypoglycemic precautions. #Coronary artery disease #Carotid stenosis status post endarterectomy with patch angioplasty POD 0 Management as per vascular surgery. Restart aspirin and Plavix when OK with vascular surgery. #Hypertension BP 143/57. Restart losartan. #Peripheral artery disease #Dyslipidemia Patient will likely need statin on discharge. DVT prophylaxis: Heparin Discussed with: Patient, Anticipated discharge: 1-[address]: Home A total of 30 minutes was spent on the care of this complex patient more than 50% of the time was spent in counseling and care coordination. Thank you for this consultation. Please call [facility] with additional questions or concerns. Past Medical History Past Medical History: Coronary Artery Disease (CAD), Chest Pain / Angina, D iabetes Mellitus, Hyperlipidemia, Hypertension, Myocardial Infarction ([place]), Osteoarthritis (OA), Prostate Disorder, Vascular Disorder Additional Past Medical History / Comment(s): occasional vertigo., noises in ears- rushing., poor circulation left toes from former fx. Last Myocardial Infarction Date:: 1993 History of Any Multi-Drug Resistant Organisms: None Reported Past Surgical History: Heart Catheterization With Stent Additional Past Surgical History / Comment(s): MULTIPLE HEART CATHS WITH STENTS(unsure how many)-DATES UNKNOWN, heart cath and aortogram 10/17/19, blockage removed left leg, angiogram September 2020 has had both legs worked on. Past Anesthesia/Blood Transfusion Reactions: No Reported Reaction Additional Past Anesthesia/Blood Transfusion Reaction / Comm: no blood transfusion Date of Last Stent Placement:: UNK Past Psychological History: No Psychological Hx Reported Smoking Status: Former smoker Past Alcohol Use History: Rare Additional Past Alcohol Use History / Comment(s): QUIT SMOKING 2013, started smoking age 11 ., Smoked 2ppd Past Drug Use History: None Reported - Past Family History Mother Family Medical History: No Reported History Medications and Allergies Home Medications Medication Instructions Recorded Confirmed Type Ascorbic Acid [Vitamin C] 500 mg PO DAILY 10/13/19 05/29/22 History Aspirin [Adult Low Dose Aspirin EC] 81 mg PO DAILY 10/13/19 05/29/22 History Magnesium 500 mg PO DAILY 10/26/20 05/29/22 History tadalafiL [Cialis] 5 mg PO DAILY 10/26/20 06/03/22 History Clopidogrel [Plavix] 75 mg PO DAILY #90 tab 11/01/20 05/29/22 Rx Cayenne 900 mg PO DAILY 05/29/22 History Cholecalciferol [Vitamin D3 (25 50 mcg PO DAILY 05/29/22 05/29/22 History Mcg = 1000 Iu)] Cyanocobalamin (Vitamin B-12) 1,000 mcg PO DAILY 05/29/22 05/29/22 History [Vitamin B-12] Losartan [Cozaar] 50 mg PO DAILY 05/29/22 05/29/22 History Red Yeast Rice 1,200 mg PO HS 05/29/22 05/29/22 History Zinc Gluconate [Zinc] 50 mg PO DAILY 05/29/22 06/03/22 History metFORMIN HCL 500 mg PO DAILY 05/29/22 06/03/22 History Allergies Allergy/AdvReac Type Severity Reaction Status Date / Time No Known Allergies Allergy Verified 06/03/22 07:05 Physical Exam Vitals: Vital Signs Temp Pulse Pulse Pulse Resp BP BP 06/03/22 16:45 62 11 L 06/03/22 16:30 67 11 L 06/03/22 16:15 63 13 06/03/22 16:00 66 12 06/03/22 15:45 55 L 12 06/03/22 15:30 59 L 24 06/03/22 15:15 28 H 06/03/22 15:00 61 18 06/03/22 14:45 56 L 23 06/03/22 14:30 64 15 06/03/22 14:15 54 L 28 H 06/03/22 14:00 69 10 L 06/03/22 13:45 52 L 16 06/03/22 13:40 97.9 F 52 L 27 H 123/55 06/03/22 13:15 54 L 16 155/67 06/03/22 13:00 66 16 155/68 06/03/22 12:45 50 L 16 154/77 06/03/22 12:30 63 16 159/73 06/03/22 12:17 61 16 151/68 06/03/22 11:59 49 L 16 159/64 06/03/22 11:41 97 F L 55 L 16 154/54 06/03/22 08:43 52 L 16 160/73 06/03/22 08:26 51 L 16 193/81 06/03/22 07:15 97.6 F 52 L 16 181/83 BP Pulse Ox 06/03/22 16:45 100 06/03/22 16:30 97 06/03/22 16:15 99 06/03/22 16:00 99 06/03/22 15:45 98 06/03/22 15:30 94 L 06/03/22 15:15 96 06/03/22 15:00 96 06/03/22 14:45 98 06/03/22 14:30 97 06/03/22 14:15 97 06/03/22 14:00 99 06/03/22 13:45 94 L 06/03/22 13:40 97 06/03/22 13:15 152/56 98 06/03/22 13:00 153/55 97 06/03/22 12:45 155/56 91 L 06/03/22 12:30 155/61 99 06/03/22 12:17 172/70 99 06/03/22 11:59 155/53 99 06/03/22 11:41 99 06/03/22 08:43 99 06/03/22 08:26 99 06/03/22 07:15 99 Intake and Output 06/03/22 06/03/22 06/03/22 06:59 14:59 22:59 Intake Total 1970 110 Output Total 1225 150 Balance 745 -40 Intake: IV 1950 110 Lactated Ringers 1,000 ml 60 @ 20 mls/hr IV .Q24H [facility] Rx#:[id number] ceFAZolin 2 gm In Sodium 50 Chloride 0.9% 50 ml @ 100 mls/hr IVPB ONCE PRN Rx# :[id number] Intake, IV Titration 20 Amount Lactated Ringers 1,000 ml 20 @ 20 mls/hr IV .Q24H [facility] Rx#:[id number] Output: Urine 1150 150 Estimated Blood Loss 75 Other: Weight 85.6 kg ABP, PAP, CO, CI - Last 8 Hours Arterial Blood Pressure 143/57 Arterial Blood Pressure 139/52 Arterial Blood Pressure 129/49 Arterial Blood Pressure 127/50 Arterial Blood Pressure 116/43 Arterial Blood Pressure 123/40 Arterial Blood Pressure 116/45 Arterial Blood Pressure 125/49 Arterial Blood Pressure 148/58 Arterial Blood Pressure 143/58 Arterial Blood Pressure 134/54 Arterial Blood Pressure 145/54 Arterial Blood Pressure 128/47 Arterial Blood Pressure 136/51 Results Labs: Abnormal Lab Results - Last 24 Hours (Table) 06/03/22 06/03/22 06/03/22 Range/Units 07:38 08:45 12:16 POC Glucose (mg/dL) 244 H 242 H 228 H (70-110) mg/dL 06/03/22 06/03/22 Range/Units 13:18 16:34 POC Glucose (mg/dL) 225 H 174 H (70-110) mg/dL
[2022-06-03 21:15] LABS: Glucose,Whole Blood 235 mg/dL (70-110)
[2022-06-04] MEDS: HEPARIN SODIUM,PORCINE/PF 5,000 UNIT/0.5 ML SYRINGE SQ SCH ×2 (00:04→09:29)
[2022-06-04] MEDS: HYDROcodone/APAP 5-325MG 1 EACH TAB PO PRN ×2 (03:38→09:29)
[2022-06-04 04:03] VITALS: TEMP 97.9
[2022-06-04 05:19] LABS: Basophils % (A) 0 %; Eosinophils # (A) 0.1 k/uL (0-0.7); Eosinophils % (A) 1 %; HCT 33.5 % (39.0-53.0); HGB 11.3 gm/dL (13.0-17.5); Lymphocytes % (A) 15 %; MCH 29.3 pg (25.0-35.0); MCHC 33.7 g/dL (31.0-37.0); MCV 86.9 fL (80.0-100.0); Mean Platelet Volume 8.6; Monocytes # (A) 0.4 k/uL (0-1.0); Monocytes % (A) 5 %; Neutrophils # (A) 5.2 k/uL (1.3-7.7); Neutrophils % (A) 77 %; Platelet Count 132 k/uL (150-450); RBC 3.86 m/uL (4.30-5.90); RDW 12.8 % (11.5-15.5); WBC 6.7 k/uL (3.8-10.6)
[2022-06-04 05:27] LABS: Potassium 4.3 mmol/L (3.5-5.1)
[2022-06-04 06:42] LABS: Glucose,Whole Blood 174 mg/dL (70-110)
[2022-06-04] MEDS: INSULIN ASPART (NovoLOG) 100 UNIT/ML VIAL SQ SCH ×2 (07:00→12:33)
[2022-06-04] MEDS ORDERED: LOSARTAN 50 MG TAB PO SCH (09:00)
[2022-06-04] MEDS ORDERED: ASPIRIN 81 MG PO SCH (09:00)
[2022-06-04] MEDS ORDERED: CLOPIDOGREL 75 MG TAB PO SCH (09:00)
--- NOTE | 2022-06-04 09:29 | P.PN ---
Subjective Progress Note Date: 06/04/22 Patient was seen and examined in the ICU. No acute events overnight. Reports some lightheadedness with standing this morning. No other complaints. General: non toxic, no distress, appears at stated age Derm: warm, dry Head: atraumatic, normocephalic, symmetric, left neck surgical scar intact Eyes: EOMI, no lid lag, anicteric sclera Mouth: no lip lesion, mucus membranes moist Cardiovascular: S1S2 reg, no murmur Lungs: CTA bilateral, no rhonchi, no rales , no accessory muscle use Ext: no gross muscle atrophy, no edema, no contractures Neuro: no focal neuro deficits Psych: Alert, oriented, appropriate affect #Diabetes mellitus with hyperglycemia POC glucose 174 Expected to improve after discharge Resume metformin on discharge #Coronary artery disease #Carotid stenosis status post endarterectomy with patch angioplasty POD 0 Management as per vascular surgery Restart aspirin and Plavix when OK with vascular surgery #Hypertension BP 109/56 Resume losartan #Peripheral artery disease #Dyslipidemia Patient will likely need statin on discharge Patient encouraged to urinate prior to discharge. Patient is medically stable. Plans for discharge today. Thank you for this consultation. Objective - Vital Signs Vital signs: Vital Signs Temp 97.9 F 06/04/22 08:00 Pulse 63 06/04/22 08:00 Resp 13 06/04/22 08:00 BP 109/56 06/04/22 08:00 Pulse Ox 93 L 06/04/22 08:00 FiO2 Intake & Output 06/03/22 06/04/22 06/04/22 18:59 06:59 18:59 Intake Total 2079 220 40 Output Total 1375 1110 210 Balance 705 -890 -170 Weight 85.6 kg 88.2 kg Intake: IV 2059 220 40 Lactated Ringers 1,000 ml 60 220 40 @ 20 mls/hr IV .Q24H [facility] Rx#:[id number] ceFAZolin 2 gm In Sodium 50 Chloride 0.9% 50 ml @ 100 mls/hr IVPB ONCE PRN Rx# :[id number] Intake, IV Titration 20 Amount Lactated Ringers 1,000 ml 20 @ 20 mls/hr IV .Q24H [facility] Rx#:[id number] Output: Drainage 10 Left Neck 10 Urine 1300 1110 200 Estimated Blood Loss 75 Other: Voiding Method Indwelling Catheter Indwelling Catheter ABP, PAP, CO, CI - Last Documented Arterial Blood Pressure 124/45 - Labs CBC & Chem 7: 06/04/22 05:03 06/04/22 05:03 Labs: Abnormal Lab Results - Last 24 Hours (Table) 06/03/22 06/03/22 06/03/22 Range/Units 12:16 13:18 16:34 RBC (4.30-5.90) m/uL Hgb (13.0-17.5) gm/dL Hct (39.0-53.0) % Plt Count (150-450) k/uL Sodium (137-145) mmol/L Chloride (98-107) mmol/L Glucose (74-99) mg/dL POC Glucose (mg/dL) 228 H 225 H 174 H (70-110) mg/dL Calcium (8.4-10.2) mg/dL 06/03/22 06/04/22 06/04/22 Range/Units 21:13 05:03 05:03 RBC 3.86 L (4.30-5.90) m/uL Hgb 11.3 L (13.0-17.5) gm/dL Hct 33.5 L (39.0-53.0) % Plt Count 132 L (150-450) k/uL Sodium 135 L (137-145) mmol/L Chloride 109 H (98-107) mmol/L Glucose 204 H (74-99) mg/dL POC Glucose (mg/dL) 235 H (70-110) mg/dL Calcium 8.0 L (8.4-10.2) mg/dL 06/04/22 Range/Units 06:40 RBC (4.30-5.90) m/uL Hgb (13.0-17.5) gm/dL Hct (39.0-53.0) % Plt Count (150-450) k/uL Sodium (137-145) mmol/L Chloride (98-107) mmol/L Glucose (74-99) mg/dL POC Glucose (mg/dL) 174 H (70-110) mg/dL Calcium (8.4-10.2) mg/dL
[2022-06-04] MEDS: LACTATED RINGERS 1,000 ML IV SCH (09:30)
--- NOTE | 2022-06-04 09:35 | P.DS ---
Providers Date of admission: 06/03/22 06:40 Expected date of discharge: 06/04/22 Attending physician: Kait Lucas DO Consults: 06/03/22 12:10 Consult Physician Routine Consulting Provider: Carlos Chavez Consult Reason/Comments: Medical Management Do you want consulting provider notified?: Yes Primary care physician: [facility] Course: This is 68-year-old male with high-grade left internal carotid artery stenosis who had previously undergone an angiogram of with intent of having carotid stent placed however due to size of the vessels was not performed. He underwent an open carotid endarterectomy with patch angioplasty yesterday. He is postop day #1. Vital signs have been stable. He has no focal deficits. States pain is manageable. I he did have a Lucas catheter that was pulled out during transport and has some slight hematuria. Patient is getting up to the side of the bed. Lucas catheter will be discontinued he will get up and ambulate. Plan for discharge this afternoon after he is able to void. Exam General appearance: The patient is alert, oriented, appears in no acute distress. HET: Head is normocephalic and atraumatic. Pupils are equal and reactive. Neck: Supple without lymphadenopathy. Trachea midline. Heart: Regular. Lungs: Equal expansion, normal respiratory effort. Abdomen: Soft, nontender, nondistended. Extremities: Normal skin color and turgor. No peripheral edema. Neurological: No focal deficits. Strength and sensation are grossly intact. The impression and plan of care has been dictated as directed. Dr. Willis I performed a history and examination of this patient, discussed the same with the dictator. I agree with the dictator's note ,documented as a scribe. Any additional findings or plans will be noted. Procedures: Preoperative Diagnosis: High-grade left Internal carotid artery stenosis Postoperative Diagnosis: Same Procedure: Left carotid endarterectomy with patch angioplasty Plan - Discharge Summary Discharge Rx Participant: No New Discharge Prescriptions: New HYDROcodone/APAP 5-325MG [[place] 5-325] 1 each PO Q6HR PRN #8 tab PRN Reason: Pain Acetaminophen Tab [Tylenol] 650 mg PO Q4HR PRN tab PRN Reason: Pain Continue Ascorbic Acid [Vitamin C] 500 mg PO DAILY Aspirin [Adult Low Dose Aspirin EC] 81 mg PO DAILY tadalafiL [Cialis] 5 mg PO DAILY Zinc Gluconate [Zinc] 50 mg PO DAILY metFORMIN HCL 500 mg PO DAILY Cyanocobalamin (Vitamin B-12) [Vitamin B-12] 1,000 mcg PO DAILY Cayenne 900 mg PO DAILY Magnesium 500 mg PO DAILY Clopidogrel [Plavix] 75 mg PO DAILY #90 tab Cholecalciferol [Vitamin D3 (25 Mcg = 1000 Iu)] 50 mcg PO DAILY Losartan [Cozaar] 50 mg PO DAILY Red Yeast Rice 1,200 mg PO HS Discharge Medication List Ascorbic Acid [Vitamin C] 500 mg PO DAILY 10/13/19 [History] Aspirin [Adult Low Dose Aspirin EC] 81 mg PO DAILY 10/13/19 [History] Magnesium 500 mg PO DAILY 10/26/20 [History] tadalafiL [Cialis] 5 mg PO DAILY 10/26/20 [History] Clopidogrel [Plavix] 75 mg PO DAILY #90 tab 11/01/20 [Rx] Cayenne 900 mg PO DAILY 05/29/22 [History] Cholecalciferol [Vitamin D3 (25 Mcg = 1000 Iu)] 50 mcg PO DAILY 05/29/22 [History] Cyanocobalamin (Vitamin B-12) [Vitamin B-12] 1,000 mcg PO DAILY 05/29/22 [History] Losartan [Cozaar] 50 mg PO DAILY 05/29/22 [History] Red Yeast Rice 1,200 mg PO HS 05/29/22 [History] Zinc Gluconate [Zinc] 50 mg PO DAILY 05/29/22 [History] metFORMIN HCL 500 mg PO DAILY 05/29/22 [History] Acetaminophen Tab [Tylenol] 650 mg PO Q4HR PRN tab 06/04/22 [Rx] HYDROcodone/APAP 5-325MG [[place] 5-325] 1 each PO Q6HR PRN #8 tab 06/04/22 [Rx] Follow up Appointment(s)/Referral(s): Juanito Sanchez MD [Primary Care Provider] - 1 Week Kait Lucas DO [STAFF PHYSICIAN] - 1 Week Activity/Diet/Wound Care/Special Instructions: No strenuous activity or heavy lifting greater than 10 pounds. May shower but no tub bathing or soaking. Watch incision site for infection including redness, drainage, or temperature greater than 100.4. No driving for 3 days. If you notice he symptoms please call office Discharge Disposition: HOME SELF-CARE
[2022-06-04 11:27] VITALS: BP 121/66; PULSE 64; RESP 19
== END 2022-06-04 13:32 | disposition home or self-care (01) | DRG 39 ==
LOC: 2ORMAIN 06:40 → 2SICU 13:08
PROVIDERS: ADMIT Surgery; ATTEND Surgery
PROC: 03UL0JZ Supplement Left Internal Carotid Artery with Synthetic Substitute, Open Approach (ICD-10-PCS; 2022-06-03)
PROC: 03CL0ZZ Extirpation of Matter from Left Internal Carotid Artery, Open Approach (ICD-10-PCS; principal; 2022-06-03 08:30)
DX: I65.22 Occlusion and stenosis of left carotid artery (principal); E11.51 Type 2 diabetes mellitus with diabetic peripheral angiopathy without gangrene; E11.65 Type 2 diabetes mellitus with hyperglycemia; E78.5 Hyperlipidemia, unspecified; I10 Essential (primary) hypertension; I25.10 Atherosclerotic heart disease of native coronary artery without angina pectoris; I25.2 Old myocardial infarction; M19.90 Unspecified osteoarthritis, unspecified site; Z79.02 Long term (current) use of antithrombotics/antiplatelets; Z79.82 Long term (current) use of aspirin; Z79.84 Long term (current) use of oral hypoglycemic drugs; Z79.899 Other long term (current) drug therapy; Z87.891 Personal history of nicotine dependence
CPT/HCPCS: 80048; 85025; 88304

== ENCOUNTER 2023-12-16 06:32 | Day surgery (SDC) | payer MEDICARE ==
[2023-12-14 12:10] VITALS: BMI 23.7
[2023-12-16] MEDS ORDERED: ZOLPIDEM 5 MG TAB PO PRN (06:43)
[2023-12-16] MEDS ORDERED: ASPIRIN 325 MG TAB PO PRN (06:43)
[2023-12-16] MEDS ORDERED: ALPRAZolam 0.25 MG TAB PO PRN (06:43)
[2023-12-16] MEDS ORDERED: ALPRAZolam 0.5 MG TAB PO PRN (06:43)
[2023-12-16] MEDS ORDERED: HEPARIN SODIUM,PORCINE 10,000 UNIT in SODIUM CHLORIDE 0.9% 1,000 ML IRRIGATION PRN (06:43)
[2023-12-16] MEDS ORDERED: HEPARIN SODIUM,PORCINE (1 ML) 2,500 UNIT in SODIUM CHLORIDE 0.9% 250 ML IRRIGATION PRN (06:43)
[2023-12-16] MEDS: SODIUM CHLORIDE 0.9% 1,000 ML IV ONE (07:07)
[2023-12-16 07:29] LABS: Glucose,Whole Blood 177 mg/dL (70-110)
[2023-12-16] MEDS ORDERED: fentaNYL (PF) 50 MCG/ML 2 ML AMP ONE (08:00)
[2023-12-16] MEDS ORDERED: HEPARIN SODIUM 1,000 UN/ML (10ML VL) ONE (08:00)
[2023-12-16] MEDS ORDERED: LIDOCAINE 1% INJ 10MG/ML (20 ML MDV) ONE (08:01)
[2023-12-16] MEDS: MIDAZOLAM 2 MG/2 ML VIAL IVP ONE (08:21)
[2023-12-16] MEDS: fentaNYL (PF) 50 MCG/ML 2 ML AMP IVP ONE (08:22)
[2023-12-16] MEDS: LIDOCAINE 1% INJ 10MG/ML (20 ML MDV) SQ ONE (08:22)
[2023-12-16] MEDS: HEPARIN SODIUM 1,000 UN/ML (10ML VL) IVP ONE ×3 (08:32→09:14)
[2023-12-16] MEDS ORDERED: niCARdipine 25 MG/10 ML VIAL ONE (08:36)
[2023-12-16] MEDS: IOPAMIDOL-370 100ML BTL INJ ONE (09:29)
[2023-12-16] MEDS ORDERED: NALOXONE 0.4 MG/ML 1 ML VIAL IVP PRN (09:32)
--- NOTE | 2023-12-16 09:38 | P.PCN ---
Date of Procedure: 12/16/23 Operative Findings: PERCUTANEOUS PERIPHERAL INTERVENTION Performing physician Kye Newby M.D. Procedure performed 1. Atherectomy of the left popliteal and left SFA using the Rotarex device 2. REMOTE RECRUITER and stenting of the left popliteal and left SFA with an excellent angiographic result 3. Adjunctive use of IVUS and gradient measurement 4. Right lower extremity angiogram and left common femoral artery angiogram 5. Ultrasound-guided access of the left common femoral artery Indication Right lower extremity intermittent claudication in this 78-year-old gentleman who underwent duplex study came in to be abnormal Approach Left common femoral artery Complications None Level of sedation Moderate with a sedation time of 70 minutes Procedure description After obtaining informed consent the patient was brought to the cardiac Cutting And Boning Supervisor with the left common femoral artery was cannulated using micropuncture technique under ultrasound guidance the micropuncture wire passed easily then I placed a 6 Guamanian 70 cm sheath at the left common femoral artery. I was able to go up and over to the right SFA using 035 stiff Glidewire with the backup support of 5 Guamanian rim catheter and subsequently the catheter was advanced over the wire and the sheath was advanced over the wire and the catheter. The sheath was stationed at the right common femoral artery with subsequently right lower extremity angiogram was performed and showed severe in-stent restenosis involving the right SFA documented by IVUS and also severe de silvia disease involving the proximal right SFA and also severe disease involving the right popliteal. Intravascular ultrasound was performed as described above and showed a diameter around 6 mm with a calcified lesion. Atherectomy was performed using the Rota Jackson device. Subsequently balloon angioplasty was performed using 6 mm Keira and then compliant balloon with residual flow-limiting dissection involving the Denovo lesion of the right SFA which was stented using 7.0 x 140 mm Zilver PTX drug-coated stent. Postdilatation was performed using 6.0 x 250 drug-coated balloon and that was performed after we did a DCB of the previous stent. Final angiogram showed excellent angiographic results and the procedure was completed with no complication Postprocedure management 1. Dual antiplatelet therapy 2. Aggressive cholesterol control 3. Risk factors modification 4. Follow-up with the patient
--- NOTE | 2023-12-16 10:10 | IR ---
EXAMINATION TYPE: IR angio lower extremity RT DATE OF EXAM: 12/16/2023 FLUOROSCOPY RIGHT LOWER ANGIOGRAM, 18.2 MINS FLT, 62.7MGY, 437 images submitted.
[2023-12-16] MEDS: EMPTY BAG 1 BAG with SODIUM CHLORIDE 0.9% 1,000 ML IV ONE (13:32)
[2023-12-16] MEDS: ATROPINE SULFATE 0.1 MG/ML 10ML SYRINGE ONE (13:41)
[2023-12-16] MEDS: SODIUM CHLORIDE 0.9% 1,000 ML in EMPTY BAG 1 BAG IV SCH (15:59)
[2023-12-16] MEDS ORDERED: RED YEAST RICE PO SCH (21:00)
[2023-12-16] MEDS ORDERED: CAYENNE PO SCH (21:00)
[2023-12-17 03:28] VITALS: TEMP 97.6
[2023-12-17 05:56] LABS: African American GFR (CKD) 63 (>60 ml/min/1.73 sqM); Non-African American GFR(CKD) 54 (>60 ml/min/1.73 sqM)
[2023-12-17 08:06] VITALS: BP 123/76; PULSE 51
[2023-12-17 08:07] VITALS: RESP 16
[2023-12-17] MEDS ORDERED: NON FORMULARY DRUG (Tadalafil [Cialis] 5 MG Tablet) PO SCH (09:00)
[2023-12-17] MEDS ORDERED: RED YEAST RICE PO SCH (09:00)
[2023-12-17] MEDS ORDERED: CAYENNE PO SCH (09:00)
[2023-12-17] MEDS ORDERED: [UNRECOGNIZED DRUG - OTHER] PO SCH (09:00)
[2023-12-17] MEDS: ASCORBIC ACID 500 MG TAB PO SCH (09:10)
[2023-12-17] MEDS: ZINC SULFATE 220 MG CAP PO SCH (09:10)
[2023-12-17] MEDS: CLOPIDOGREL 75 MG TAB PO SCH (09:10)
[2023-12-17] MEDS: LOSARTAN 50 MG TAB PO SCH (09:10)
[2023-12-17] MEDS: MAGNESIUM OXIDE 400 MG TAB PO SCH (09:10)
[2023-12-17] MEDS: ASPIRIN 81 MG PO SCH (09:10)
[2023-12-17] MEDS: CYANOCOBALAMIN 500 MCG TAB PO SCH (09:10)
[2023-12-17] MEDS: CHOLECALCIFEROL 125 MCG (5000 IU) TABLET PO SCH (09:10)
--- NOTE | 2023-12-17 09:23 | P.DS ---
Providers Attending physician: Kye Newby Primary care physician: [facility] Course: An 78-year-old gentleman who underwent yesterday successful RETAIL AREA MANAGER of the right SFA and right popliteal with a good angiographic result signs with no complication from left groin approach He was seen and evaluated this morning. He is stable and he is asymptomatic. The left groin is soft and nontender with no bruises. The right foot is warm. The patient is going to be discharged home on dual antiplatelet therapy but he is reluctant to take any statin or lipid-lowering agents at this point. Plan - Discharge Summary Discharge Rx Participant: No New Discharge Prescriptions: Continue Ascorbic Acid [Vitamin C] 500 mg PO QAM Aspirin [Adult Low Dose Aspirin EC] 81 mg PO QAM tadalafiL [Cialis] 5 mg PO QAM Zinc Gluconate [Zinc] 50 mg PO QAM Cyanocobalamin (Vitamin B-12) [Vitamin B-12] 1,000 mcg PO QAM Cayenne 2 tab PO HS Clopidogrel [Plavix] 75 mg PO QAM Red Yeast Rice. 1,000 mg PO HS Bromelin 500 mg PO QAM Cayenne 1 tab PO QAM Magnesium 500 mg PO QAM Losartan [Cozaar] 50 mg PO QAM Red Yeast Rice. 500 mg PO QAM Cholecalciferol (Vitamin D3) [Vitamin D3 (1250 Mcg = 50,000 Iu)] 1,250 mcg PO QAM Discontinued metFORMIN HCL 500 mg PO QAM Discharge Medication List Ascorbic Acid [Vitamin C] 500 mg PO QAM 10/13/19 [History] Aspirin [Adult Low Dose Aspirin EC] 81 mg PO QAM 10/13/19 [History] Magnesium 500 mg PO QAM 10/26/20 [History] tadalafiL [Cialis] 5 mg PO QAM 10/26/20 [History] Cayenne 2 tab PO HS 05/29/22 [History] Cyanocobalamin (Vitamin B-12) [Vitamin B-12] 1,000 mcg PO QAM 05/29/22 [History] Losartan [Cozaar] 50 mg PO QAM 05/29/22 [History] Zinc Gluconate [Zinc] 50 mg PO QAM 05/29/22 [History] Bromelin 500 mg PO QAM 12/14/23 [History] Cayenne 1 tab PO QAM 12/14/23 [History] Cholecalciferol (Vitamin D3) [Vitamin D3 (1250 Mcg = 50,000 Iu)] 1,250 mcg PO QAM 12/14/23 [History] Clopidogrel [Plavix] 75 mg PO QAM 12/14/23 [History] Red Yeast Rice. 1,000 mg PO HS 12/14/23 [History] Red Yeast Rice. 500 mg PO QAM 12/14/23 [History] Follow up Appointment(s)/Referral(s): Kye Newby MD [STAFF PHYSICIAN] - 1 Week (APPOINTMENT MADE ON November @ 4:15PM )
== END 2023-12-17 10:30 | disposition home or self-care (01) ==
LOC: CATHCVL 06:32 → 6NMEDSUR 09:28 → CATHCVL 12-17 10:30
PROVIDERS: ATTEND Internal Medicine Interventional Cardiology
DX: I70.213 Atherosclerosis of native arteries of extremities with intermittent claudication, bilateral legs (principal)
CPT/HCPCS: 37227; 37252; 82565; C1894 ×2; C1769 ×5; C1753; C1874; C2623; C2628; J2250; J2001; J3010; J1644; Q9967

== ENCOUNTER 2024-05-05 08:45 | Inpatient (IN) | payer MEDICARE ==
--- NOTE | 2024-05-05 09:00 | ED ---
General Adult HPI - General Chief complaint: Neuro Symptoms/Deficit Stated complaint: Poss Stroke Time Seen by Provider: 05/05/24 08:51 Source: patient, family, RN notes reviewed Mode of arrival: ambulatory Limitations: no limitations - History of Present Illness Initial comments: Patient is an 78-year-old male presenting to the emergency department with left- sided facial weakness. Onset of symptoms was around 7:30 AM. Patient did not have symptoms when he woke. Patient has slurred speech and left-sided facial weakness. No history of similar symptoms previously. No headache or confusion. - Related Data Home Medications Medication Instructions Recorded Confirmed Ascorbic Acid [Vitamin C] 500 mg PO QAM 10/13/19 12/14/23 Aspirin [Adult Low Dose Aspirin EC] 81 mg PO QAM 10/13/19 12/16/23 Magnesium 500 mg PO QAM 10/26/20 12/14/23 tadalafiL [Cialis] 5 mg PO QAM 10/26/20 12/16/23 Cayenne 2 tab PO HS 05/29/22 12/14/23 Cyanocobalamin (Vitamin B-12) 1,000 mcg PO QAM 05/29/22 12/14/23 [Vitamin B-12] Losartan [Cozaar] 50 mg PO QAM 05/29/22 12/16/23 Zinc Gluconate [Zinc] 50 mg PO QAM 05/29/22 12/14/23 Bromelin 500 mg PO QAM 12/14/23 12/14/23 Cayenne 1 tab PO QAM 12/14/23 12/14/23 Cholecalciferol (Vitamin D3) 1,250 mcg PO QAM 12/14/23 12/14/23 [Vitamin D3 (1250 Mcg = 50,000 Iu)] Clopidogrel [Plavix] 75 mg PO QAM 12/14/23 12/16/23 Red Yeast Rice. 1,000 mg PO HS 12/14/23 12/14/23 Red Yeast Rice. 500 mg PO QAM 12/14/23 12/14/23 Allergies Allergy/AdvReac Type Severity Reaction Status Date / Time No Known Allergies Allergy Verified 05/05/24 08:50 Review of Systems ROS Statement: Those systems with pertinent positive or pertinent negative responses have been documented in the HPI. ROS Other: All systems not noted in ROS Statement are negative. Constitutional: Denies: fever Eyes: Denies: eye pain ENT: Denies: ear pain Respiratory: Denies: cough, dyspnea Cardiovascular: Denies: chest pain Endocrine: Denies: fatigue Gastrointestinal: Denies: abdominal pain Neurological: Reports: as per HPI, weakness. Denies: headache Past Medical History Past Medical History: Coronary Artery Disease (CAD), Chest Pain / Angina, Diabetes Mellitus, Hearing Disorder / Deafness, Hyperlipidemia, Hypertension, Myocardial Infarction (SC), Osteoarthritis (OA), Prostate Disorder, Vascular Disorder Additional Past Medical History / Comment(s): Occasional vertigo, rushing noises in ears, tinnitis, problems hearing sometimes. Poor circulation left toes from former fracture. Last Myocardial Infarction Date:: 1993 History of Any Multi-Drug Resistant Organisms: None Reported Past Surgical History: Heart Catheterization With Stent Additional Past Surgical History / Comment(s): MULTIPLE HEART CATHS WITH STENTS(unsure how many)-DATES UNKNOWN, heart cath and aortogram 10/17/19, blockage removed left leg, angiogram September 2020 has had both legs worked on, bilateral cataract surgery. Past Anesthesia/Blood Transfusion Reactions: No Reported Reaction Additional Past Anesthesia/Blood Transfusion Reaction / Comment(s): No blood transfusion. Date of Last Stent Placement:: UNKNOWN Past Psychological History: No Psychological Hx Reported Smoking Status: Former smoker - Past Family History Mother Family Medical History: No Reported History General Exam Limitations: no limitations General appearance: alert, in no apparent distress Head exam: Present: atraumatic, normocephalic Eye exam: Present: normal appearance, PERRL, EOMI ENT exam: Present: normal oropharynx Neck exam: Present: normal inspection Respiratory exam: Present: normal lung sounds bilaterally Cardiovascular Exam: Present: regular rate, normal rhythm GI/Abdominal exam: Present: soft. Absent: tenderness Extremities exam: Present: normal inspection, full ROM. Absent: tenderness Neurological exam: Present: alert, oriented X3 Expanded Neurological exam: Present: protecting the airway Patient oriented to: Present: person, place, time Speech: Present: expressive aphasia (Slurred speech) Cranial nerves: EOM's Intact: Normal, Facial Sensation: Normal, Facial Palsy with Forehead Movement: Abnormal Left (Forehead movement remains normal) Sensory exam: Upper Extremity Light Touch: Normal, Lower Extremity Light Touch: Normal Motor strength exam: RUE: 5, LUE: 4, RLE: 5, LLE: 4 Eye Response: (4) open spontaneously Motor Response: (6) obeys commands Verbal Response: (5) oriented Psychiatric exam: Present: normal affect, normal mood Skin exam: Present: normal color Course Vital Signs 05/05/24 05/05/24 08:46 09:23 Temperature 97.7 F Pulse Rate 71 69 Respiratory 16 16 Rate Blood Pressure 166/88 151/83 O2 Sat by Pulse 97 96 Oximetry - Reevaluation(s) Reevaluation #1: 05/05/24 09:00 Code stroke was activated EKG Findings - EKG Results: EKG: interpreted by ERMD, sinus rhythm, normal axis, normal QRS, normal ST/T Medical Decision Making - Medical Decision Making Was pt. sent in by a medical professional or institution (ALYSSA Morillo, LABOR SUPERVISOR, urgent care, hospital, or fdc...) When possible be specific @ -No Did you speak to anyone other than the patient for history (EMS, parent, family, police, friend...)? What history was obtained from this source @ - is present and helps provide history including confirmation of onset being near to 7:30 AM and was not present when patient awoke Did you review nursing and triage notes (agree or disagree)? Why? @ -I reviewed and agree with nursing and triage notes Were old charts reviewed (outside hosp., previous admission, EMS record, old EKG, old radiological studies, urgent care reports/EKG's, fdc records)? Report findings @ -No old charts were reviewed Differential Diagnosis (chest pain, altered mental status, abdominal pain women, abdominal pain men, vaginal bleeding, weakness, fever, dyspnea, syncope, headache, dizziness, GI bleed, back pain, seizure, CVA, palpatations, mental health, musculoskeletal)? @ -Differential Weakness: Hypoglycemia, shock, sepsis, hyponatremia, anemia, infection, SC, ETOH, adverse medicine reaction, overdose, stroke, this is not meant to be an all-inclusive li st. EKG interpreted by me (3pts min.). @ -As above X-rays interpreted by me (1pt min.). @Chest x-ray does not reveal acute abnormality CT interpreted by me (1pt min.). @ -CT scan of the brain does not reveal acute abnormality. U/S interpreted by me (1pt. min.). @ -None done What testing was considered but not performed or refused? (CT, X-rays, U/S, labs)? Why? @ -None What meds were considered but not given or refused? Why? @ -None Did you discuss the management of the patient with other professionals (professionals i.e. , PA, LABOR SUPERVISOR, lab, RT, psych nurse, health care social worker, rehab spec, teacher, deportation officer, case therapist)? Give summary @ -Case was discussed with Dr. Perry who does recommend tenecteplase for patient after discussion including patient last known well, symptoms, NIH and ag e Case also discussed with practitioner Chase, covering Dr. Michaels who will admit covering Dr. Lynch Re Examiner has been paged Was smoking cessation discussed for >3mins.? @ -No Was critical care preformed (if so, how long)? @ -33 minutes critical care time Were there social determinants of health that impacted care today? How? (Homelessness, low income, unemployed, alcoholism, drug addiction, tra nsportation, low edu. Level, literacy, decrease access to med. care, assisted, rehab)? @ -No Was there de-escalation of care discussed even if they declined (Discuss DNR or withdrawal of care, Hospice)? DNR status @ -No What co-morbidities impacted this encounter? (DM, HTN, Smoking, COPD, CAD, Cancer, CVA, ARF, Chemo, Hep., AIDS, mental health diagnosis, sleep apnea, morbid obesity)? @ -None Was patient admitted / discharged? Hospital course, mention meds given and route, prescriptions, significant lab abnormalities, going to OR and other pertinent info. @ -Patient presents with acute onsets stroke, last known well 7:30 AM. NIH is 4. Reevaluation unchanged. Patient would like to have tenecteplase. Patient does have experience with his family member who did not have it done and progressively worsened. Patient inclusion and exclusion criteria reviewed with patient and family. Family is also in agreement. Risks and benefits discussed. This includes risks of serious bleeding including serious symptomatic intracranial hemorrhage which could make symptoms worse or possibly even . Patient will be admitted. Admission orders written. Patient will go to ICU Undiagnosed new problem with uncertain prognosis? @ -No Drug Therapy requiring intensive monitoring for toxicity (Heparin, Nitro, Insulin, Cardizem)? @ -No Were any procedures done? @ -Tenecteplase provided Diagnosis/symptom? @ -CVA Acute, or Chronic, or Acute on Chronic? @ -Acute Uncomplicated (without systemic symptoms) or Complicated (systemic symptoms)? @ -Default Side effects of treatment? @ -No Exacerbation, Progression, or Severe Exacerbation? @ -No Poses a threat to life or bodily function? How? (Chest pain, USA, SC, pneumonia, PE, COPD, DKA, ARF, appy, cholecystitis, CVA, Diverticulitis, Homicidal, Suicidal, threat to staff... and all critical care pts) @ -Threat to neurological function - Lab Data Result diagrams: 05/05/24 09:07 Lab Results 05/05/24 05/05/24 Range/Units 09:07 09:07 WBC 6.3 (3.8-10.6) k/uL RBC 4.88 (4.30-5.90) m/uL Hgb 14.0 (13.0-17.5) gm/dL Hct 40.6 (39.0-53.0) % MCV 83.2 (80.0-100.0) fL MCH 28.7 (25.0-35.0) pg MCHC 34.5 (31.0-37.0) g/dL RDW 13.1 (11.5-15.5) % Plt Count 185 (150-450) k/uL MPV 7.2 Neutrophils % 66 % Lymphocytes % 22 % Monocytes % 5 % Eosinophils % 4 % Basophils % 1 % Neutrophils # 4.2 (1.3-7.7) k/uL Lymphocytes # 1.4 (1.0-4.8) k/uL Monocytes # 0.3 (0-1.0) k/uL Eosinophils # 0.2 (0-0.7) k/uL Basophils # 0.1 (0-0.2) k/uL PT 10.0 (10.0-12.5) sec INR 0.9 (<1.2) APTT 23.2 (22.0-30.0) sec Critical Care Time Critical Care Time: Yes Disposition Clinical Impression: Cerebrovascular accident (CVA) Disposition: ADMITTED IP TO THIS HOSP Is patient prescribed a controlled substance at d/c from ED?: No Referrals: None,Stated [REFERRING] - 1-2 days Time of Disposition: 09:38
[2024-05-05 09:20] LABS: Basophils # (A) 0.1 k/uL (0-0.2); Basophils % (A) 1 %; Eosinophils # (A) 0.2 k/uL (0-0.7); Eosinophils % (A) 4 %; HCT 40.6 % (39.0-53.0); Lymphocytes # (A) 1.4 k/uL (1.0-4.8); Lymphocytes % (A) 22 %; MCH 28.7 pg (25.0-35.0); MCHC 34.5 g/dL (31.0-37.0); MCV 83.2 fL (80.0-100.0); Mean Platelet Volume 7.2; Monocytes # (A) 0.3 k/uL (0-1.0); Monocytes % (A) 5 %; Neutrophils # (A) 4.2 k/uL (1.3-7.7); Neutrophils % (A) 66 %; Platelet Count 185 k/uL (150-450); RBC 4.88 m/uL (4.30-5.90); RDW 13.1 % (11.5-15.5); WBC 6.3 k/uL (3.8-10.6)
--- NOTE | 2024-05-05 09:26 | CT ---
EXAMINATION TYPE: CODE STROKE: CT brain wo contr DATE OF EXAM: 05/05/2024 9:13 AM COMPARISON: None. CLINICAL INDICATION: Male, 78 years old with history of Neuro deficit, acute, stroke suspected, STROK E, left-sided drift TECHNIQUE: Examination was done in axial plane without intravenous contrast. Coronal and sagittal r econstructions performed. CT DLP: 1011.9 mGycm, Automated exposure control for dose reduction was used. FINDINGS: There is no evidence of acute intracranial hemorrhage, acute ischemic changes, mass, mass-effect, or extra-axial fluid collection. There is no effacement of cerebral sulci or basal subarachnoid cister ns. There is no hydrocephalus. There is no midline shift. Freeman-white matter distinction is preserv ed. Mild patchy subcortical white matter hypodensities. Trace mucosal thickening maxillary sinuses and ethmoid air cells. Slight leftward nasal septal deviat ion. Mastoid air cells well pneumatized. Orbits and globes are intact. IMPRESSION: Mild patchy burden of chronic small vessel ischemic disease. No acute intracranial abnormality seen. [facility], , 05/05/2024 9:24 AM
[2024-05-05 09:31] LABS: INR 0.9 (<1.2); Partial Thromboplastin Time 23.2 sec (22.0-30.0)
[2024-05-05] MEDS: T.ENECTEPLASE 5 MG/ML VIAL IVP STA (09:33)
--- NOTE | 2024-05-05 09:44 | CT ---
EXAMINATION TYPE: CT angio head neck DATE OF EXAM: 05/05/2024 9:29 AM COMPARISON: CT brain same day CLINICAL INDICATION: Male, 78 years old with history of Neuro deficit, acute, stroke suspected, STROK E, left-sided drift TECHNIQUE: Contiguous axial scanning of the head and neck performed with IV Contrast, patient injecte d with 65 mL of Isovue 370. Coronal and sagittal reconstructions performed. 3-D reconstructions gener ated on a dedicated independent workstation. CT DLP: 581.8 mGycm, Automated exposure control for dose reduction was used. FINDINGS: NECK: Mild to moderate atherosclerotic arch calcifications. Mild atherosclerotic narrowing at the origin of the left subclavian artery. Possible moderate to severe atherosclerotic narrowing at the origin of the left vertebral artery. The left vertebral artery is slightly more dominant and both vessels are otherwise patent throughout their course. * There is prominent atherosclerotic plaque and calcification spanning the right carotid bifurcation for a length of 2 cm. * Noncalcified plaque at the distal right common carotid artery contributes to a mild, just under 50 % stenosis. At the level of the bifurcation, there are multiple intraluminal webs which may correspon d to areas of ulcerated and remodeled plaque. Chronic dissection here is difficult to exclude. * Atherosclerotic change results in mild, 40% proximal right ICA stenosis. Remainder of the right IC A is patent. The left common and left internal carotid arteries are widely patent. NASCET criteria was utilized. Moderate emphysematous change in the last upper lungs. There is a spiculated density right upper lobe measuring 9 mm for which follow-up is recommended. Asymmetric soft tissue partially effacing the left vallecular space, probably relating to lingual ton sillar hypertrophy. Consider direct visualization to exclude underlying mucosal space lesion. Moderate degenerative disc disease C6/C7. HEAD: The left vertebral artery is dominant. The V4 segment right vertebral artery becomes even more hypopl astic after the PICA take off. The basilar artery and remainder of the posterior circulation is patent Mild atherosclerotic calcification and areas of narrowing within the bilateral carotid siphons. The e xternal carotid arteries and remainder of the anterior circulation is patent. No aneurysmal change is seen. IMPRESSION: NECK: 1. PROMINENT ATHEROSCLEROTIC CHANGES ON THE RIGHT WITH PLAQUE SPANNING 2 CM ACROSS THE CAROTID BIFURC ATION. THIS RESULTS IN A MILD JUST UNDER 50% DISTAL CCA STENOSIS AND A MILD, 40% PROXIMAL RIGHT ICA S TENOSIS. 2. HOWEVER, THERE ARE ALSO INTRALUMINAL WEBS HERE AT THE RIGHT CAROTID BIFURCATION. THIS MAY CORRESPO ND TO AREAS OF ULCERATED AND REMODELED PLAQUE. CHRONIC DISSECTION HERE IS DIFFICULT TO EXCLUDE. 3. Widely patent left common and internal carotid arteries. 4. Possible moderate to severe atherosclerotic narrowing at the origin of the left vertebral artery. 5. Consider outpatient direct visualization of the left vallecular space to exclude underlying mucosa l lesion. Findings may reflect asymmetric lingual tonsillar hypertrophy. HEAD: 6. Dominant left vertebral artery. 7. Mild atherosclerotic changes within the bilateral carotid siphons. 8. No large vessel intracranial arterial occlusion, significant stenosis, or aneurysmal change is see n. [facility], , 05/05/2024 9:42 AM
--- NOTE | 2024-05-05 09:51 | XR ---
EXAMINATION TYPE: XR chest 2V DATE OF EXAM: 05/05/2024 9:24 AM COMPARISON: None CLINICAL INDICATION: Male, 78 years old with confusion, history of altered mental status, , TECHNIQUE: AP and lateral views FINDINGS: Heart normal size. Aorta and pulmonary vasculature within normal limits. Hyperinflation with mild int erstitial density. No consolidation or pleural effusion. IMPRESSION: Interstitial density and hyperinflation likely relates to underlying COPD. No definite acute process otherwise seen. [facility], , 05/05/2024 9:49 AM
[2024-05-05] MEDS: SODIUM CHLORIDE 0.9% 1,000 ML IV SCH (10:00)
[2024-05-05 10:01] LABS: ALT 21 U/L (4-49); AST 18 U/L (17-59); African American GFR (CKD) 59 (>60 ml/min/1.73 sqM); Albumin 4.2 g/dL (3.5-5.0); Alkaline Phosphatase 69 U/L (38-126); Anion Gap 7 mmol/L; Blood Urea Nitrogen 21 mg/dL (9-20); Calcium 9.4 mg/dL (8.4-10.2); Carbon Dioxide 22 mmol/L (22-30); Chloride 100 mmol/L (98-107); Creatine Kinase 71 U/L (55-170); Glucose 241 mg/dL (74-99); Non-African American GFR(CKD) 51 (>60 ml/min/1.73 sqM); Potassium 4.4 mmol/L (3.5-5.1); Sodium 129 mmol/L (137-145); Total Bilirubin 0.3 mg/dL (0.2-1.3); Total Protein 7.1 g/dL (6.3-8.2)
--- NOTE | 2024-05-05 15:38 | P.CNPUL ---
History of Present Illness Consult date: 05/05/24 Requesting physician: Octaviano Starr Reason for consult: other (ICU management) Chief complaint: Left-sided facial weakness History of present illness: This is an 78-year-old white male with history of hypertension, dyslipidemia, history of coronary artery disease and previous stent placement, patient presented to the ER with acute onset of left-sided facial weakness and slurred speech noted by his around 7:30 AM. Shortly after the patient was seen in the ER, brain CT showed mild patchy burden of chronic small vessel ischemic disease and no evidence of acute intracranial abnormality. CT angiography showed mostly moderate to severe atherosclerotic narrowing at the origin of the left vertebral artery, considering the presentation patient underwent thrombolytic therapy. Considering this patient will be admitted to the ICU as per protocol. During my evaluation, patient had no symptoms, there was no evidence of slurred speech, there was no evidence of left-sided weakness or any facial droop. Patient will be seen by neurology and again I am excepting the patient to the ICU for 24-hour observation Review of Systems REVIEW OF SYSTEMS: CONSTITUTIONAL: Negative. EYES: Negative. ENT: Negative. CARDIAC: Negative. PULMONARY: As above. GI: Negative. GENITOURINARY: Negative. MUSCULOSKELETAL: Negative. SKIN: Negative. NEUROPSYCH: As noted in HPI ENDOCRINE: Negative. HEMATOLOGIC: Negative. Past Medical History Past Medical History: Coronary Artery Disease (CAD), Chest Pain / Angina, Diabetes Mellitus, Hearing Disorder / Deafness, Hyperlipidemia, Hypertension, Myocardial Infarction ([place]), Osteoarthritis (OA), Prostate Disorder, Vascular Disorder Additional Past Medical History / Comment(s): Occasional vertigo, rushing noises in ears, tinnitis, problems hearing sometimes. Poor circulation left toes from former fracture. Last Myocardial Infarction Date:: 1993 History of Any Multi-Drug Resistant Organisms: None Reported Past Surgical History: Heart Catheterization With Stent Additional Past Surgical History / Comment(s): MULTIPLE HEART CATHS WITH STENTS(unsure how many)-DATES UNKNOWN, heart cath and aortogram 10/17/19, blockage removed left leg, angiogram September 2020 has had both legs worked on, bilateral cataract surgery. Past Anesthesia/Blood Transfusion Reactions: No Reported Reaction Additional Past Anesthesia/Blood Transfusion Reaction / Comment(s): No blood transfusion. Date of Last Stent Placement:: UNKNOWN Past Psychological History: No Psychological Hx Reported Smoking Status: Former smoker - Past Family History Mother Family Medical History: No Reported History Medications and Allergies Home Medications Medication Instructions Recorded Confirmed Type Ascorbic Acid [Vitamin C] 500 mg PO DAILY 10/13/19 05/05/24 History Aspirin [Adult Low Dose Aspirin EC] 81 mg PO DAILY 10/13/19 05/05/24 History Losartan [Cozaar] 50 mg PO DAILY 05/29/22 05/05/24 History Zinc Gluconate [Zinc] 50 mg PO DAILY 05/29/22 05/05/24 History Cayenne 500 mg PO DAILY 12/14/23 05/05/24 History Acetaminophen Tab [Tylenol] 650 mg PO Q6H PRN 05/05/24 05/05/24 History Cholecalciferol [Vitamin D3 (25 25 mcg PO DAILY 05/05/24 05/05/24 History Mcg = 1000 Iu)] Magnesium Oxide [Magnesium] 500 mg PO DAILY 05/05/24 05/05/24 History Red Yeast Rice 1,200 mg PO DAILY 05/05/24 05/05/24 History Tamsulosin HCl [Flomax] 0.4 mg PO DAILY 05/05/24 05/05/24 History cilostazoL [Pletal] 50 mg PO AC-BID 05/05/24 05/05/24 History metFORMIN HCL ER [Glucophage XR] 500 mg PO HS 05/05/24 05/05/24 History Allergies Allergy/AdvReac Type Severity Reaction Status Date / Time No Known Allergies Allergy Verified 05/05/24 10:04 Physical Exam Vitals: Vital Signs Temp Pulse Resp BP Pulse Ox 05/05/24 13:42 60 18 126/86 96 05/05/24 13:15 68 18 119/72 96 05/05/24 12:45 68 16 135/83 96 05/05/24 12:18 63 18 131/79 97 05/05/24 12:03 97.7 F 64 18 125/83 95 05/05/24 11:43 97.8 F 65 18 139/77 96 05/05/24 11:13 63 16 147/86 95 05/05/24 11:00 65 18 162/83 96 05/05/24 10:45 97.6 F 66 16 170/89 96 05/05/24 10:28 64 18 156/86 95 05/05/24 10:15 65 16 145/78 96 05/05/24 10:00 65 16 165/79 94 L 05/05/24 09:38 70 16 179/93 95 05/05/24 09:23 69 16 151/83 96 05/05/24 08:46 97.7 F 71 16 166/88 97 Intake and Output 05/05/24 05/05/24 05/05/24 06:59 14:59 22:59 Other: Weight 79.379 kg General: Revealed 78-year-old white male in no distress Head: Atraumatic normocephalic Skin: Skin is warm and dry and no rashes or lesions are noted. Eye: Pupils are equal, round and reactive to light, extra-ocular movements are intact; there is normal conjunctiva bilaterally. Ears, nose, mouth and throat: There are moist mucous membranes and no oral lesions. Neck: The neck is supple, there is no tenderness or JVD. Cardiovascular: There is a regular rate and rhythm. No murmur, rub or gallop is appreciated. Respiratory: Clear bilaterally no crackles rhonchi or wheezes Gastrointestinal: Soft, non-distended, non-tender abdomen without masses or organomegaly noted. There is no rebound or guarding present. Bowel sounds are unremarkable. Back: There is no tenderness to palpation in the midline. There is no obvious deformity. Musculoskeletal: Normal ROM, no tenderness, There is no pedal edema. There is no calf tenderness or swelling. No cords were appreciated. Neurological: CN II-XII intact, Cranial nerves III through XII are intact. There are no obvious motor or sensory deficits. Psychiatric: Cooperative, appropriate mood & affect, normal judgment. Results - Laboratory Findings CBC and BMP: 05/05/24 09:07 05/05/24 09:07 PT/INR, D-dimer PT 10.0 sec (10.0-12.5) 05/05/24 09:07 INR 0.9 (<1.2) 05/05/24 09:07 Abnormal lab findings: Abnormal Labs 05/05/24 09:07 Sodium 129 L BUN 21 H Creatinine 1.32 H Glucose 241 H - Diagnostic Findings Chest x-ray: image reviewed (Chest x-ray showed no evidence of active disease) Additional studies: CT brain and CT angiogram as noted in HPI Assessment and Plan Assessment: Impression: Acute ischemic CVA, status post thrombolytic treatment/tenecteplase History of coronary artery disease normally follows up with Dr. Gilliland, previous cardiac catheterization and stent placement History of diabetes type 2 Dyslipidemia Hypertension Recommendation: Continue present supportive care measures Transfer to ICU once a bed is available Neurology to see in consultation Resume home meds Will continue to follow Time with Patient: Greater than 30
[2024-05-05] MEDS ORDERED: DEXTROSE 50% SYRINGE 50 ML IVP PRN ×2 (16:27)
--- NOTE | 2024-05-05 16:28 | P.HPIM ---
History of Present Illness H&P Date: 05/05/24 78 year old M with PMH of carotid stenosis, HTN, DM, BPH presents to the ED. He reports left facial droop and slurred speech that started this morning. Witnessed by the . No numbness/weakness/tinging of the extremities. No confusion. History of left carotid endarterectomy with patch angioplasty on 06/03/2022. In the ED he underwent extensive evaluation. BP 166/88, HR 71, T 97.7F, RR 16, 97% on RA. CBC, Coag panel, CMP significant for Na 129, BUN 21, Cr 1.32, glu 241. CT brain chronic small vessel ischemic changes. CTA head and neck showed moderate to severe atherosclerotic narrowing of the left vertebral artery, prominent atherosclerosis resulting in 50% distal CCA and 40% proximal R ICA with intraluminal webs concerning for ulcerated and remodeled plaque with chronic dissection difficult to exclude. CXR interstitial density and hyperinflation. EKG sinus rhythm with no ST elevation. In the ED his NIH score was 4. Neurointerventionalist was consulted from the ED who recommended tPA. P atient received tPA. General: non toxic, no distress, appears at stated age Derm: warm, dry Head: atraumatic, normocephalic, symmetric Eyes: EOMI, no lid lag, anicteric sclera Mouth: no lip lesion, mucus membranes moist Cardiovascular: S1S2 reg, no murmur Lungs: CTA bilateral, no rhonchi, no rales , no accessory muscle use Ext: no gross muscle atrophy, no edema, no contractures Neuro: no focal neuro deficits Psych: Alert, oriented, appropriate affect Based on my assessment of this patient, this patient meets a high complexity level of care. CVA: CT head and CTA head and neck as above. Obtain Echo, MRI brain, A1c, Lipid panel. Repeat CT brain 24H post tPA. Start DVT prophylaxis and ASA 24H post tPA. Patient refusing statin. Telemetry monitoring. Advanced neurochecks. Neurology, PT/OT/ST consult. Carotid stenosis: Abnormal CTA neck concerning for chronic dissection and left vertebral artery stenosis. Restart ASA and Pletal 24H post tPA. Vascular surgery consult. Hyponatremia: [place] of IV hydration. DM with hyperglycemia: ISS. Accuchecks ACHS. Hypoglycemic precautions. CKD stage IIIa: At baseline. CODE STATUS: FULL CODE DVT Prophylaxis: SCD GI Prophylaxis: Designated medical POA if patient is not able to make medical decisions for themselves: . I have reviewed the following it security consultant notes: ER note. I have reviewed the results of the following tests: As above. I have ordered the following tests: As above. I have discussed the care of this patient with the following independent historian: . I have independently interpreted the following test below: EKG. I have discussed the management of this patient with the following physician: ER provider. Past Medical History Past Medical History: Coronary Artery Disease (CAD), Chest Pain / Angina, Diabetes Mellitus, Hearing Disorder / Deafness, Hyperlipidemia, Hypertension, My ocardial Infarction ([place]), Osteoarthritis (OA), Prostate Disorder, Vascular Disorder Additional Past Medical History / Comment(s): Occasional vertigo, rushing noises in ears, tinnitis, problems hearing sometimes. Poor circulation left toes from former fracture. Last Myocardial Infarction Date:: 1993 History of Any Multi-Drug Resistant Organisms: None Reported Past Surgical History: Heart Catheterization With Stent Additional Past Surgical History / Comment(s): MULTIPLE HEART CATHS WITH STENTS(unsure how many)-DATES UNKNOWN, heart cath and aortogram 10/17/19, blockage removed left leg, angiogram September 2020 has had both legs worked on, bilateral cataract surgery. Past Anesthesia/Blood Transfusion Reactions: No Reported Reaction Additional Past Anesthesia/Blood Transfusion Reaction / Comment(s): No blood transfusion. Date of Last Stent Placement:: UNKNOWN Past Psychological History: No Psychological Hx Reported Smoking Status: Former smoker - Past Family History Mother Family Medical History: No Reported History Medications and Allergies Home Medications Medication Instructions Recorded Confirmed Type Ascorbic Acid [Vitamin C] 500 mg PO DAILY 10/13/19 05/05/24 History Aspirin [Adult Low Dose Aspirin EC] 81 mg PO DAILY 10/13/19 05/05/24 History Losartan [Cozaar] 50 mg PO DAILY 05/29/22 05/05/24 History Zinc Gluconate [Zinc] 50 mg PO DAILY 05/29/22 05/05/24 History Cayenne 500 mg PO DAILY 12/14/23 05/05/24 History Acetaminophen Tab [Tylenol] 650 mg PO Q6H PRN 05/05/24 05/05/24 History Cholecalciferol [Vitamin D3 (25 25 mcg PO DAILY 05/05/24 05/05/24 History Mcg = 1000 Iu)] Magnesium Oxide [Magnesium] 500 mg PO DAILY 05/05/24 05/05/24 History Red Yeast Rice 1,200 mg PO DAILY 05/05/24 05/05/24 History Tamsulosin HCl [Flomax] 0.4 mg PO DAILY 05/05/24 05/05/24 History cilostazoL [Pletal] 50 mg PO AC-BID 05/05/24 05/05/24 History metFORMIN HCL ER [Glucophage XR] 500 mg PO HS 05/05/24 05/05/24 History Allergies Allergy/AdvReac Type Severity Reaction Status Date / Time No Known Allergies Allergy Verified 05/05/24 10:04 Physical Exam Vitals: Vital Signs Temp Pulse Resp BP Pulse Ox 05/05/24 15:15 65 18 129/71 95 05/05/24 14:45 68 16 149/84 96 05/05/24 14:15 60 18 155/83 95 05/05/24 13:42 60 18 126/86 96 05/05/24 13:15 68 18 119/72 96 05/05/24 12:45 68 16 135/83 96 05/05/24 12:18 63 18 131/79 97 05/05/24 12:03 97.7 F 64 18 125/83 95 05/05/24 11:43 97.8 F 65 18 139/77 96 05/05/24 11:13 63 16 147/86 95 05/05/24 11:00 65 18 162/83 96 05/05/24 10:45 97.6 F 66 16 170/89 96 05/05/24 10:28 64 18 156/86 95 05/05/24 10:15 65 16 145/78 96 05/05/24 10:00 65 16 165/79 94 L 05/05/24 09:38 70 16 179/93 95 05/05/24 09:23 69 16 151/83 96 05/05/24 08:46 97.7 F 71 16 166/88 97 Intake and Output 05/05/24 05/05/24 05/05/24 06:59 14:59 22:59 Other: Weight 79.379 kg Results CBC & Chem 7: 05/05/24 09:07 05/05/24 09:07 Labs: Abnormal Lab Results - Last 24 Hours (Table) 05/05/24 Range/Units 09:07 Sodium 129 L (137-145) mmol/L BUN 21 H (9-20) mg/dL Creatinine 1.32 H (0.66-1.25) mg/dL Glucose 241 H (74-99) mg/dL
--- NOTE | 2024-05-05 16:48 | P.CNNES ---
History of Present Illness Consult date: 05/05/24 Requesting physician: Maximo Ferrari Reason for Consult: cva History of Present Illness: This is an 78-year-old gentleman who presented emergency department because of left facial droop and slurred speech. He is accompanied with his girlfriend who is at bedside who provides some of the history. Patient woke up today at 7:00am and he was doing well according to the girlfriend and at 730am and he developed left facial weakness and slurred speech. As a result the patient presents to our facility. He denies any history of stroke in the past. Denies any history of atrial fibrillation. Patient does have underlying history of coronary artery disease status post stent, left carotid endarterectomy about 2 years ago, di abetes mellitus, hypertension. He states he is on aspirin 81 mg daily. He is not on any statin. Some of the workup during this hospital visit consisted of: Initial blood pressure is 166/88. I reviewed the lab workup. A code stroke was activity in the ED and patient had NIH stroke scale per the ED physician 4. CT of the head is reported as mild patchy burden of chronic small vessel ischemic disease. No acute intracranial abnormality seen. I personally reviewed the CT and agree with the report CT angiography head is reported as dominant left vertebral artery. Mild atherosclerotic changes within the bilateral carotid siphons. No large vessel intracranial arterial occlusion, significant stenosis or aneurysm change is seen. CT angiography of the head is reported as prominent atherosclerotic changes of the right with the plaque spending 2 cm across the carotid bifurcation. This resulted in almost just under 50% distal common carotid artery stenosis and mild 40% proximal right ICA stenosis. However there is also intramural web here at the right carotid bifurcation this may correspond to an area of ulcerated and remodeled plaque. Chronic dissection here is difficult to exclude. Possible moderate to severe atherosclerotic narrowing at the origin of left vertebral artery. Consider outpatient direct visualization of the left vallecular space to exclude underlying mucosal lesion. Finding may reflect asymmetric lingual tonsillar hypertrophy. Patient was given IV TNK and after that I have seen the patient and his girlfriend feels he is back to baseline and patient feels he is drastically better and very close to baseline. Review of Systems As per HPI. Past Medical History Past Medical History: Coronary Artery Disease (CAD), Chest Pain / Angina, Diabetes Mellitus, Hearing Disorder / Deafness, Hyperlipidemia, Hypertension, Myocardial Infarction ([place]), Osteoarthritis (OA), Prostate Disorder, Vascular D isorder Additional Past Medical History / Comment(s): Occasional vertigo, rushing noises in ears, tinnitis, problems hearing sometimes. Poor circulation left toes from former fracture. Last Myocardial Infarction Date:: 1993 History of Any Multi-Drug Resistant Organisms: None Reported Past Surgical History: Heart Catheterization With Stent Additional Past Surgical History / Comment(s): MULTIPLE HEART CATHS WITH STENTS(unsure how many)-DATES UNKNOWN, heart cath and aortogram 10/17/19, blockage removed left leg, angiogram September 2020 has had both legs worked on, bilateral cataract surgery. Past Anesthesia/Blood Transfusion Reactions: No Reported Reaction Additional Past Anesthesia/Blood Transfusion Reaction / Comment(s): No blood transfusion. Date of Last Stent Placement:: UNKNOWN Past Psychological History: No Psychological Hx Reported Smoking Status: Former smoker - Past Family History Mother Family Medical History: No Reported History Medications and Allergies Home Medications Medication Instructions Recorded Confirmed Type Ascorbic Acid [Vitamin C] 500 mg PO DAILY 10/13/19 05/05/24 History Aspirin [Adult Low Dose Aspirin EC] 81 mg PO DAILY 10/13/19 05/05/24 History Losartan [Cozaar] 50 mg PO DAILY 05/29/22 05/05/24 History Zinc Gluconate [Zinc] 50 mg PO DAILY 05/29/22 05/05/24 History Cayenne 500 mg PO DAILY 12/14/23 05/05/24 History Acetaminophen Tab [Tylenol] 650 mg PO Q6H PRN 05/05/24 05/05/24 History Cholecalciferol [Vitamin D3 (25 25 mcg PO DAILY 05/05/24 05/05/24 History Mcg = 1000 Iu)] Magnesium Oxide [Magnesium] 500 mg PO DAILY 05/05/24 05/05/24 History Red Yeast Rice 1,200 mg PO DAILY 05/05/24 05/05/24 History Tamsulosin HCl [Flomax] 0.4 mg PO DAILY 05/05/24 05/05/24 History cilostazoL [Pletal] 50 mg PO AC-BID 05/05/24 05/05/24 History metFORMIN HCL ER [Glucophage XR] 500 mg PO HS 05/05/24 05/05/24 History Allergies Allergy/AdvReac Type Severity Reaction Status Date / Time No Known Allergies Allergy Verified 05/05/24 10:04 Physical Examination - Vital Signs Vital Signs: Vital Signs Temp Pulse Resp BP Pulse Ox 05/05/24 15:15 65 18 129/71 95 05/05/24 14:45 68 16 149/84 96 05/05/24 14:15 60 18 155/83 95 05/05/24 13:42 60 18 126/86 96 05/05/24 13:15 68 18 119/72 96 05/05/24 12:45 68 16 135/83 96 05/05/24 12:18 63 18 131/79 97 05/05/24 12:03 97.7 F 64 18 125/83 95 05/05/24 11:43 97.8 F 65 18 139/77 96 05/05/24 11:13 63 16 147/86 95 05/05/24 11:00 65 18 162/83 96 05/05/24 10:45 97.6 F 66 16 170/89 96 05/05/24 10:28 64 18 156/86 95 05/05/24 10:15 65 16 145/78 96 05/05/24 10:00 65 16 165/79 94 L 05/05/24 09:38 70 16 179/93 95 05/05/24 09:23 69 16 151/83 96 05/05/24 08:46 97.7 F 71 16 166/88 97 Intake and Output 05/05/24 05/05/24 05/05/24 06:59 14:59 22:59 Other: Weight 79.379 kg GENERAL: The patient is lying in bed and is not in acute distress. NEUROLOGICAL: Higher mental function: The patient is awake, alert, oriented to self, place and time. Patient is following commands. No aphasia and no neglect. Cranial nerves: The pupils are round, equal and reactive to light and accommodation. Visual schilling are full to confrontation throughout. Extraocular movement is intact no nystagmus is noted. Facial sensation is normal to touch throughout. The facial strength is normal throughout. Hearing is mildly decreased bilaterally to hand rub. Tongue is midline and moved [id number] without any difficulty. No dysarthria is noted. Shoulder shrug is normal bi laterally. Motor: The strength is 5 over 5 throughout. Normal tone and bulk. Cerebellum: Normal finger to nose bilaterally. Sensation: Sensation is normal to touch throughout. Reflexes (right/left): 2+ throughout. Plantars are downgoing bilaterally. Results - Laboratory Findings CBC and BMP: 05/05/24 09:07 05/05/24 09:07 Abnormal Lab Findings: Abnormal Labs 05/05/24 09:07 Sodium 129 L BUN 21 H Creatinine 1.32 H Glucose 241 H Assessment and Plan Assessment: This is an 78-year-old gentleman presents emergency department because of after half hour of waking up he noticed left facial droop and slurring of the speech. His NIH stroke scale was a 4. The ED team. He was given TNK in the ED and after that patient is back to baseline. Acute ischemic stroke patient received IV TNK. His symptoms was left facial droop and dysarthria. Underlying history of left carotid endartectomy Underlying history of diabetes Hypertension History of disease status post stent. Plan: Will avoid any antiplatelet for now since the patient received TN K and post 24- hour TNK will get a repeat CT of the head if it is negative then we will start the patient on aspirin 81 mg his home medication and will start him in addition to that to Plavix 75 mg daily. I started the patient on Lipitor 80 mg nightly for secondary stroke prophylaxis CT of the head is ordered for post 24-hour TNK. MRI of the brain is ordered and is pending Lipid panel, 2D echo is ordered and are pending Continue neurochecks per the IV thrombolytic protocol. Recommend systolic blood pressure to be less than 185/110 per IV TNK protocol PT OT and also LAG SCREWER are consulted Upon discharge recommend the patient to follow-up with interventional neurology team and recommend consideration of diagnostic cerebral angiogram for further evaluation of the patient's carotid and intravascular vessels Will defer the rest of the medical management to primary team and other specialist DVT prophylaxis use SCDs. The plan discussed with the patient, his girlfriend who is at bedside. Thank you for the consultation. Time with Patient: Greater than 30
[2024-05-05 17:25] LABS: Glucose,Whole Blood 201 mg/dL (70-110)
[2024-05-05] MEDS: INSULIN ASPART (NovoLOG) 100 UNIT/ML VIAL SQ SCH (17:30)
[2024-05-05 20:04] LABS: Glucose,Whole Blood 153 mg/dL (70-110)
[2024-05-05] MEDS: ATORVASTATIN 80 MG TAB PO SCH (20:07)
[2024-05-06 03:34] LABS: African American GFR (CKD) 54 (>60 ml/min/1.73 sqM); Anion Gap 3 mmol/L; Blood Urea Nitrogen 23 mg/dL (9-20); Calcium 8.5 mg/dL (8.4-10.2); Carbon Dioxide 20 mmol/L (22-30); Chloride 109 mmol/L (98-107); Glucose 151 mg/dL (74-99); Magnesium 1.9 mg/dL (1.6-2.3); Non-African American GFR(CKD) 47 (>60 ml/min/1.73 sqM); Potassium 4.1 mmol/L (3.5-5.1); Sodium 132 mmol/L (137-145)
[2024-05-06 04:08] LABS: HCT 37.9 % (39.0-53.0); HGB 12.5 gm/dL (13.0-17.5); MCH 28.4 pg (25.0-35.0); Mean Platelet Volume 7.1; Platelet Count 175 k/uL (150-450); RBC 4.41 m/uL (4.30-5.90); RDW 12.9 % (11.5-15.5); WBC 6.4 k/uL (3.8-10.6)
[2024-05-06 06:30] LABS: Glucose,Whole Blood 196 mg/dL (70-110)
[2024-05-06 08:18] VITALS: TEMP 97.7
[2024-05-06 08:49] LABS: Chol/HDL Ratio 8.24 Ratio
--- NOTE | 2024-05-06 09:23 | CT ---
EXAMINATION TYPE: CT brain wo con DATE OF EXAM: 05/06/2024 9:10 AM COMPARISON: 05/05/2024. CLINICAL INDICATION: Male, 78 years old with history of Neuro deficit, acute, stroke suspected, POST TPA f/u, TECHNIQUE: Examination was done in axial plane without intravenous contrast. Coronal and sagittal r econstructions performed. CT DLP: 1180.4 mGycm, Automated exposure control for dose reduction was used. FINDINGS: There is no evidence of acute intracranial hemorrhage, acute ischemic changes, mass, mass-effect, or extra-axial fluid collection. There is no effacement of cerebral sulci or basal subarachnoid cister ns. There is no hydrocephalus. There is no midline shift. Freeman-white matter distinction is preserv ed. Mild generalized supratentorial volume loss. Mild subcortical patchy white matter hypodensities in dulce th hemispheres. Atherosclerotic calcifications carotid siphons are demonstrated. Mild mucosal thickening maxillary sinuses and ethmoid air cells. Slight leftward nasal septal deviati on. Mastoid air cells well pneumatized. The globes are intact. IMPRESSION: No hemorrhagic transformation or acute intracranial abnormality seen. Mild patchy burden of chronic s mall vessel ischemic disease. [facility], , 05/06/2024 9:21 AM
[2024-05-06] MEDS: LOSARTAN 50 MG TAB PO SCH (09:50)
[2024-05-06] MEDS: TAMSULOSIN 0.4 MG CAP.ER.24H PO SCH (09:50)
[2024-05-06 10:12] VITALS: RESP 10
--- NOTE | 2024-05-06 11:07 | P.GSCN ---
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 Apparently patient had woken up around 7 AM and by 7:30 AM his girlfriend had noticed that he was slurring his speech and had a left facial droop. She drove him here to the hospital for further evaluation. Code stroke was called and T.nkase was administered. He states within an hour to 2 hours after all focal deficits had resolved. He denied any other focal deficits such as vision loss or extremity weakness. He has a history of coronary artery disease with stents, peripheral arterial disease with revascularization and left carotid stenosis status post left carotid endarterectomy in June [address] Lucas. He patient s tates he follows with Dr. Newby and he has been monitoring his carotid arteries. Patient had a CTA of the head and neck that reported intraluminal labs at the right carotid bifurcation that may correspond to area of ulcerated and remodeled plaque versus chronic dissection. Vascular surgery was consulted for further evaluation. Brain CT with no acute findings. Patient currently denies any focal deficits, no slurred speech or facial droop. Denies any previous stroke. he denies any shortness of breath, chest pain, abdominal pain, nausea or vomiting. He had a repeat brain CT this morning rep orts no hemorrhagic transformation or acute intracranial abnormality seen. Echocardiogram currently pending. Review of Systems A 14 point review systems was completed all pertinent positives and negatives as stated in the HPI. Past Medical History Past Medical History: Coronary Artery Disease (CAD), Chest Pain / Angina, Diabetes Mellitus, Hearing Disorder / Deafness, Hyperlipidemia, Hypertension, Myocardial Infarction ([place]), Osteoarthritis (OA), Prostate Disorder, Vascular Disorder Additional Past Medical History / Comment(s): Occasional vertigo, rushing noises in ears, tinnitis, problems hearing sometimes. Poor circulation left toes from former fracture. Last Myocardial Infarction Date:: 1993 History of Any Multi-Drug Resistant Organisms: None Reported Past Surgical History: Heart Catheterization With Stent Additional Past Surgical History / Comment(s): MULTIPLE HEART CATHS WITH STENTS(unsure how many)-DATES UNKNOWN, heart cath and aortogram 10/17/19, blockage removed left leg, angiogram September 2020 has had both legs worked on, bilateral cataract surgery. Past Anesthesia/Blood Transfusion Reactions: No Reported Reaction Additional Past Anesthesia/Blood Transfusion Reaction / Comm: No blood transfusion. Date of Last Stent Placement:: UNKNOWN Past Psychological History: No Psychological Hx Reported Smoking Status: Former smoker Past Alcohol Use History: Rare Additional Past Alcohol Use History / Comment(s): QUIT SMOKING 2013, started smoking age 11, smoked 2ppd. Past Drug Use History: None Reported - Past Family History Mother Family Medical History: No Reported History Medications and Allergies Home Medications Medication Instructions Recorded Confirmed Type Ascorbic Acid [Vitamin C] 500 mg PO DAILY 10/13/19 05/05/24 History Aspirin [Adult Low Dose Aspirin EC] 81 mg PO DAILY 10/13/19 05/05/24 History Losartan [Cozaar] 50 mg PO DAILY 05/29/22 05/05/24 History Zinc Gluconate [Zinc] 50 mg PO DAILY 05/29/22 05/05/24 History Cayenne 500 mg PO DAILY 12/14/23 05/05/24 History Acetaminophen Tab [Tylenol] 650 mg PO Q6H PRN 05/05/24 05/05/24 History Cholecalciferol [Vitamin D3 (25 25 mcg PO DAILY 05/05/24 05/05/24 History Mcg = 1000 Iu)] Magnesium Oxide [Magnesium] 500 mg PO DAILY 05/05/24 05/05/24 History Red Yeast Rice 1,200 mg PO DAILY 05/05/24 05/05/24 History Tamsulosin HCl [Flomax] 0.4 mg PO DAILY 05/05/24 05/05/24 History cilostazoL [Pletal] 50 mg PO AC-BID 05/05/24 05/05/24 History metFORMIN HCL ER [Glucophage XR] 500 mg PO HS 05/05/24 05/05/24 History Allergies Allergy/AdvReac Type Severity Reaction Status Date / Time No Known Allergies Allergy Verified 05/05/24 10:04 Surgical - Exam Vital Signs Temp Pulse Resp BP Pulse Ox 97.7 F 71 16 166/88 97 05/05/24 08:46 05/05/24 08:46 05/05/24 08:46 05/05/24 08:46 05/05/24 08:46 General appearance: The patient is alert, oriented, appears in no acute distress. HET: Head is normocephalic and atraumatic. Pupils are equal and reactive. Neck: Supple. No carotid bruit Heart: Regular. Lungs: Equal expansion, normal respiratory effort. Abdomen: Soft, nontender, nondistended. Extremities: Normal skin color and turgor. Palpable radial pulses. Neurological: No focal deficits. Speech is fluent. Patient has facial symmetry. Strength and sensation are grossly intact. Results - Labs 05/06/24 02:45 05/06/24 02:45 Abnormal Lab Results - Last 24 Hours (Table) 05/05/24 05/05/24 05/05/24 Range/Units 09:07 17:14 20:02 Hgb (13.0-17.5) gm/dL Hct (39.0-53.0) % Sodium 129 L (137-145) mmol/L Chloride (98-107) mmol/L Carbon Dioxide (22-30) mmol/L BUN 21 H (9-20) mg/dL Creatinine 1.32 H (0.66-1.25) mg/dL Glucose 241 H (74-99) mg/dL POC Glucose (mg/dL) 201 H 153 H (70-110) mg/dL Hemoglobin A1c (<=6.0) % Triglycerides (0.00-149.00) mg/dL Cholesterol (0.00-200.00) mg/dL LDL Cholesterol Direct (0.00-129.00) mg/dL VLDL Cholesterol, Calc (5.00-40.00) mg/dL HDL Cholesterol (40.00-60.00) mg/dL 05/06/24 05/06/24 05/06/24 Range/Units 02:45 02:45 02:45 Hgb 12.5 L (13.0-17.5) gm/dL Hct 37.9 L (39.0-53.0) % Sodium 132 L (137-145) mmol/L Chloride 109 H (98-107) mmol/L Carbon Dioxide 20 L (22-30) mmol/L BUN 23 H (9-20) mg/dL Creatinine 1.42 H (0.66-1.25) mg/dL Glucose 151 H (74-99) mg/dL POC Glucose (mg/dL) (70-110) mg/dL Hemoglobin A1c 9.0 H (<=6.0) % Triglycerides 454.00 H (0.00-149.00) mg/dL Cholesterol 281.00 H (0.00-200.00) mg/dL LDL Cholesterol Direct 176.00 H (0.00-129.00) mg/dL VLDL Cholesterol, Calc 90.80 H (5.00-40.00) mg/dL HDL Cholesterol 34.10 L (40.00-60.00) mg/dL 05/06/24 Range/Units 06:29 Hgb (13.0-17.5) gm/dL Hct (39.0-53.0) % Sodium (137-145) mmol/L Chloride (98-107) mmol/L Carbon Dioxide (22-30) mmol/L BUN (9-20) mg/dL Creatinine (0.66-1.25) mg/dL Glucose (74-99) mg/dL POC Glucose (mg/dL) 196 H (70-110) mg/dL Hemoglobin A1c (<=6.0) % Triglycerides (0.00-149.00) mg/dL Cholesterol (0.00-200.00) mg/dL LDL Cholesterol Direct (0.00-129.00) mg/dL VLDL Cholesterol, Calc (5.00-40.00) mg/dL HDL Cholesterol (40.00-60.00) mg/dL Diabetes panel 05/05/24 05/06/24 05/06/24 Range/Units 09:07 02:45 02:45 Sodium 129 L 132 L (137-145) mmol/L Potassium 4.4 4.1 (3.5-5.1) mmol/L Chloride 100 109 H (98-107) mmol/L Carbon Dioxide 22 20 L (22-30) mmol/L BUN 21 H 23 H (9-20) mg/dL Creatinine 1.32 H 1.42 H (0.66-1.25) mg/dL Glucose 241 H 151 H (74-99) mg/dL Hemoglobin A1c 9.0 H (<=6.0) % Calcium 9.4 8.5 (8.4-10.2) mg/dL AST 18 (17-59) U/L ALT 21 (4-49) U/L Alkaline Phosphatase 69 (38-126) U/L Total Protein 7.1 (6.3-8.2) g/dL Albumin 4.2 (3.5-5.0) g/dL Triglycerides 454.00 H (0.00-149.00) mg/dL HDL Cholesterol 34.10 L (40.00-60.00) mg/dL Calcium panel 05/05/24 05/06/24 Range/Units 09:07 02:45 Calcium 9.4 8.5 (8.4-10.2) mg/dL Albumin 4.2 (3.5-5.0) g/dL Pituitary panel 05/05/24 05/06/24 Range/Units 09:07 02:45 Sodium 129 L 132 L (137-145) mmol/L Potassium 4.4 4.1 (3.5-5.1) mmol/L Chloride 100 109 H (98-107) mmol/L Carbon Dioxide 22 20 L (22-30) mmol/L BUN 21 H 23 H (9-20) mg/dL Creatinine 1.32 H 1.42 H (0.66-1.25) mg/dL Glucose 241 H 151 H (74-99) mg/dL Calcium 9.4 8.5 (8.4-10.2) mg/dL Adrenal panel 05/05/24 05/06/24 Range/Units 09:07 02:45 Sodium 129 L 132 L (137-145) mmol/L Potassium 4.4 4.1 (3.5-5.1) mmol/L Chloride 100 109 H (98-107) mmol/L Carbon Dioxide 22 20 L (22-30) mmol/L BUN 21 H 23 H (9-20) mg/dL Creatinine 1.32 H 1.42 H (0.66-1.25) mg/dL Glucose 241 H 151 H (74-99) mg/dL Calcium 9.4 8.5 (8.4-10.2) mg/dL Total Bilirubin 0.3 (0.2-1.3) mg/dL AST 18 (17-59) U/L ALT 21 (4-49) U/L Alkaline Phosphatase 69 (38-126) U/L Total Protein 7.1 (6.3-8.2) g/dL Albumin 4.2 (3.5-5.0) g/dL - Imaging Comments: CTA head and neck impression reads Neck: Prominent arthrosclerotic changes on the right with plaque spanning 2 cm across the carotid bifurcation. This results in a mild just under 50% distal CCA stenosis and a mild 40% proximal right ICA stenosis. However there are also intraluminal webs here at the right carotid bifurcation. This may correspond to areas of ulcerated and remodeled plaque. Chronic dissection here is difficult to exclude. Widely patent left common and internal carotid arteries. Possible moderate to severe arthrosclerotic narrowing at the origin of the left vertebral artery. Consider outpatient direct visualization of the left vallecular space to exclude underlying mucosal lesion. Findings may reflect asymmetric lingual tonsillar hypertrophy. Head: Dominant left vertebral artery. Mild arthrosclerotic changes within the bilateral carotid siphons. No large vessel intracranial arterial occlusion, significant stenosis or aneurysmal change is seen. Brain CT: No hemorrhagic transformation or acute intracranial abnormality seen. Mild patchy burden of chronic small vessel ischemic disease. Assessment and Plan Assessment: 1. Left facial droop and slurred speech status post TNK 2. No significant right ICA stenosis with likely ulcerated plaque 3. History of left ICA stenosis status post carotid endarterectomy 4. Coronary artery disease status post stents 5. Peripheral arterial disease status post revascularization Plan: CTA head and neck reviewed independently by Dr. Lucas who does not believe that there is chronic dissection more likely ulcerated plaque. There is no indication for any acute vascular surgical intervention. We recommended to patient that he follow-up with Dr. Lucas in the office as an outpatient for further surveillance. He states that he follows with Dr. Newby and will continue to follow with Dr. Newby for his coronary artery disease, peripheral arterial disease and carotid stenosis. Rest of medical management per primary medical team. Continue with recommendations from neurology. Thank you for this consultation, we will sign off at this time. The impression and plan of care has been dictated as directed. Dr. Lucas I performed a history and examination of this patient, discussed the same with the dictator. I agree with the dictator's note ,documented as a scribe. Any additional findings or plans will be noted.
[2024-05-06 11:49] LABS: Glucose,Whole Blood 195 mg/dL (70-110)
--- NOTE | 2024-05-06 11:54 | CA ---
Transthoracic Echo Report Name: Julio Mead Age: 78 Gender: M : 1945 Exam Date: 05/06/2024 08:37 Exam Location: [facility] Ht (in): 71 Wt (lb): 175 Ordering Physician: Maximo Ferrari DO Attending/Referring Phys: Wind Turbine Technician Magdalena Escobar RDCS Procedure CPT: Indications: Thrombus Cardiac Hx: Technical Quality: Fair Contrast 1: Total Dose (mL): Contrast 2: Total Dose (mL): MEASUREMENTS (Male / Female) Normal Values 2D ECHO LV Diastolic Diameter PLAX 4.5 cm 4.2 - 5.9 / 3.9 - 5.3 cm LV Systolic Diameter PLAX 2.1 cm IVS Diastolic Thickness 1.3 cm 0.6 - 1.0 / 0.6 - 0.9 cm LVPW Diastolic Thickness 1.1 cm 0.6 - 1.0 / 0.6 - 0.9 cm LV Relative Wall Thickness 0.5 RV Internal Dim ED PLAX 1.5 cm LVOT Diameter 2.0 cm LA Systolic Diameter LX 3.5 cm 3.0 - 4.0 / 2.7 - 3.8 cm LV Diastolic Volume MOD BP 47.5 cm??? 67 - 155 / 56 - 104 cm??? LV Systolic Volume MOD BP 23.8 cm??? 22 - 58 / 19 - 49 cm??? LV Ejection Fraction MOD BP 49.9 % >= 55 % LV Cardiac Index MOD BP 1076.5 cm???/min???m??? LV Diastolic Volume MOD 4C 53.2 cm??? LV Systolic Volume MOD 4C 24.0 cm??? LV Ejection Fraction MOD 4C 54.9 % LV Cardiac Index MOD 4C 1329.0 cm???/min???m??? LV Diastolic Length 4C 7.1 cm LV Systolic Length 4C 6.4 cm LV Diastolic Volume MOD 2C 44.7 cm??? LV Systolic Volume MOD 2C 22.5 cm??? LV Ejection Fraction MOD 2C 49.5 % LV Cardiac Index MOD 2C 1006.8 cm???/min???m??? LV Diastolic Length 2C 6.8 cm LV Systolic Length 2C 6.1 cm LA Volume 49.7 cm??? 18 - 58 / 22 - 52 cm??? LA Volume Index 24.9 cm???/m??? 16 - 28 cm???/m??? M-MODE Aortic Root Diameter MM 3.7 cm LA Systolic Diameter MM 3.3 cm LA Ao Ratio MM 0.9 AV Cusp Separation MM 1.9 cm DOPPLER AV Peak Velocity 110.0 cm/s AV Peak Gradient 4.8 mmHg AV Mean Velocity 70.0 cm/s AV Mean Gradient 2.3 mmHg AV Velocity Time Integral 24.5 cm LVOT Peak Velocity 96.2 cm/s LVOT Peak Gradient 3.7 mmHg LVOT Velocity Time Integral 21.9 cm LVOT Stroke Volume 69.3 cm??? LVOT Stroke Volume Index 34.8 ml/m??? LVOT Cardiac Index 3153.3 cm???/min???m??? AV Area Cont Eq vti 2.8 cm??? AV Area Cont Eq pk 2.8 cm??? MV Area PHT 2.8 cm??? Mitral E Point Velocity 90.1 cm/s Mitral A Point Velocity 71.3 cm/s Mitral E to A Ratio 1.3 MV Deceleration Time 275.8 ms TR Peak Velocity 234.9 cm/s TR Peak Gradient 22.1 mmHg FINDINGS Left Ventricle Left ventricular ejection fraction is estimated at 55-60%. Mildly increased septal wall thickness. Normal left ventricular systolic function with no obvious regional wall motion abnormalities. Left ventricular cavity size normal. Right Ventricle Normal right ventricular size and function. Right ventricular systolic pressure within normal limits. Right Atrium Normal right atrial size. Left Atrium Normal left atrial size. Mitral Valve Structurally normal mitral valve. Trace mitral regurgitation. No mitral stenosis. Aortic Valve Trileaflet aortic valve. Thickened aortic valve without stenosis. No aortic regurgitation. Tricuspid Valve Structurally normal tricuspid valve. Trace to mild tricuspid regurgitation. No tricuspid stenosis. Pulmonic Valve Structurally normal pulmonic valve. Trace pulmonic regurgitation. No pulmonic stenosis. Pericardium Small pericardial effusion. Pericardial effusion located anteriorly. Pericardial effusion filled with fibrous strands. Aorta Aorta at upper limits of normal. CONCLUSIONS Left ventricular ejection fraction 55-60% Trace mitral regurgitation Trace to mild tricuspid regurgitation Small pericardial effusion without tamponade physiology Previewed by: Dr. Clement Jordan DO (Electronically Signed) Final Date: 06 May 2024 11:53
--- NOTE | 2024-05-06 12:51 | P.PN ---
Subjective Progress Note Date: 05/06/24 I am following-up with patient and he was walking with therapy and patient feels back to baseline. His girlfriend agree he is back to baseline. No new neurological issues. Objective - Vital Signs Vital signs: Vital Signs Temp 97.7 F 05/06/24 08:00 Pulse 79 05/06/24 10:00 Resp 10 L 05/06/24 10:00 BP 172/91 05/06/24 10:00 Pulse Ox 98 05/06/24 10:00 FiO2 Intake & Output 05/05/24 05/06/24 05/06/24 18:59 06:59 18:59 Intake Total 1540 100 Output Total 1100 600 Balance 440 -500 Weight 79.379 kg 85.5 kg Intake: Intake, IV Titration 1000 100 Amount Sodium Chloride 0.9% 1, 1000 100 000 ml @ 100 mls/hr IV . Q10H NEHAL Rx#:[id number] Oral 540 Output: Urine 1100 600 Other: Voiding Method Toilet Toilet Urinal Urinal - Exam GENERAL: The patient is lying in bed and is not in acute distress. NEUROLOGICAL: Higher mental function: The patient is awake, alert, oriented to self, place and time. Patient is following commands. No aphasia and no neglect. Cranial nerves: The pupils are round, equal and reactive to light and accommodation. Visual schilling are full to confrontation throughout. Extraocular movement is intact no nystagmus is noted. Facial sensation is normal to touch throughout. The facial strength is normal throughout. Hearing is mildly decreased bilaterally to hand rub. Tongue is midline and moved [id number] without any difficulty. No dysarthria is noted. Shoulder shrug is normal bilaterally. Motor: Gait is normal. The strength is 5 over 5 throughout. Normal tone and bulk. Cerebellum: Normal finger to nose bilaterally. Sensation: Sensation is normal to touch throughout. Reflexes (right/left): 2+ throughout. Plantars are downgoing bilaterally. Some of the workup during this hospital visit consisted of: Lipid panel: TG 454, cholestrol 281, LDL 176 and HDL 34 HbA1c: 9.0 CT of the head is reported as mild patchy burden of chronic small vessel ischemic disease. No acute intracranial abnormality seen. I personally reviewed the CT and agree with the report CT angiography head is reported as dominant left vertebral artery. Mild atherosclerotic changes within the bilateral carotid siphons. No large vessel intracranial arterial occlusion, significant stenosis or aneurysm change is seen. CT angiography of the head is reported as prominent atherosclerotic changes of the right with the plaque spending 2 cm across the carotid bifurcation. This resulted in almost just under 50% distal common carotid artery stenosis and mild 40% proximal right ICA stenosis. However there is also intramural web here at the right carotid bifurcation this may correspond to an area of ulcerated and remodeled plaque. Chronic dissection here is difficult to exclude. Possible moderate to severe atherosclerotic narrowing at the origin of left vertebral artery. Consider outpatient direct visualization of the left vallecular space to exclude underlying mucosal lesion. Finding may reflect asymmetric lingual tonsillar hypertrophy. 2D echo: Left vent ef 55-60%. Repeat CT head: No hemorrhagic transformation or acute intracranial abnormality seen. - Labs CBC & Chem 7: 05/06/24 02:45 05/06/24 02:45 Labs: Abnormal Lab Results - Last 24 Hours (Table) 05/05/24 05/05/24 05/06/24 Range/Units 17:14 20:02 02:45 Hgb (13.0-17.5) gm/dL Hct (39.0-53.0) % Sodium (137-145) mmol/L Chloride (98-107) mmol/L Carbon Dioxide (22-30) mmol/L BUN (9-20) mg/dL Creatinine (0.66-1.25) mg/dL Glucose (74-99) mg/dL POC Glucose (mg/dL) 201 H 153 H (70-110) mg/dL Hemoglobin A1c 9.0 H (<=6.0) % Triglycerides (0.00-149.00) mg/dL Cholesterol (0.00-200.00) mg/dL LDL Cholesterol Direct (0.00-129.00) mg/dL VLDL Cholesterol, Calc (5.00-40.00) mg/dL HDL Cholesterol (40.00-60.00) mg/dL 05/06/24 05/06/24 05/06/24 Range/Units 02:45 02:45 06:29 Hgb 12.5 L (13.0-17.5) gm/dL Hct 37.9 L (39.0-53.0) % Sodium 132 L (137-145) mmol/L Chloride 109 H (98-107) mmol/L Carbon Dioxide 20 L (22-30) mmol/L BUN 23 H (9-20) mg/dL Creatinine 1.42 H (0.66-1.25) mg/dL Glucose 151 H (74-99) mg/dL POC Glucose (mg/dL) 196 H (70-110) mg/dL Hemoglobin A1c (<=6.0) % Triglycerides 454.00 H (0.00-149.00) mg/dL Cholesterol 281.00 H (0.00-200.00) mg/dL LDL Cholesterol Direct 176.00 H (0.00-129.00) mg/dL VLDL Cholesterol, Calc 90.80 H (5.00-40.00) mg/dL HDL Cholesterol 34.10 L (40.00-60.00) mg/dL 05/06/24 Range/Units 11:48 Hgb (13.0-17.5) gm/dL Hct (39.0-53.0) % Sodium (137-145) mmol/L Chloride (98-107) mmol/L Carbon Dioxide (22-30) mmol/L BUN (9-20) mg/dL Creatinine (0.66-1.25) mg/dL Glucose (74-99) mg/dL POC Glucose (mg/dL) 195 H (70-110) mg/dL Hemoglobin A1c (<=6.0) % Triglycerides (0.00-149.00) mg/dL Cholesterol (0.00-200.00) mg/dL LDL Cholesterol Direct (0.00-129.00) mg/dL VLDL Cholesterol, Calc (5.00-40.00) mg/dL HDL Cholesterol (40.00-60.00) mg/dL Assessment and Plan Assessment: This is an 78-year-old gentleman presents emergency department because of after half hour of waking up he noticed left facial droop and slurring of the speech. His NIH stroke scale was a 4. The ED team. He was given TNK in the ED and after that patient is back to baseline. Acute ischemic stroke patient received IV TNK. His symptoms was left facial droop and dysarthria---symptoms resolved and current NIH 0. He has multiple risk factors for stroke (DM, HTN, Dyslipidemia, cardiac issues and age). Dyslipidema Underlying history of left carotid endartectomy Diabetes and recent HbA1c is 9.0 Hypertension History of coronary artery disease status post stent. Plan: Will start the patient on ASA 81mg and Plavix 75mg daily. He was on ASA 81mg at home. Recommend dual antiplatelets for 21 days and after 21 days stop ASA but continue Plavix indefinitely. Is on Lipitor 80mg daily. Patient cannot have MRI since has metal in mouth per . He does not want to pursue with MRI even if he was allowed and wants to be discharge home today. Continue neurochecks. Cardiac monitoring. PT OT and also CONSTRUCTION DIRECTOR are consulted Upon discharge recommend the patient to follow-up with interventional neurology team and recommend consideration of diagnostic cerebral angiogram for further evaluation of the patient's carotid and intravascular vessels Will defer the rest of the medical management to primary team and other specialist DVT prophylaxis: started on subq heparin. Recommend the patient to follow-up with a neurologist as outpatient within 2-3 weeks. The plan discussed with the patient, his girlfriend who is at bedside. Also discussed plan with primary team. Time with Patient: Less than 30
--- NOTE | 2024-05-06 13:14 | P.DS ---
Providers Date of admission: 05/05/24 09:40 Expected date of discharge: 05/06/24 Attending physician: Octaviano Starr MD Consults: 05/05/24 09:40 Consult Physician Routine Consulting Provider: Daly Tobin Consult Reason/Comments: cc Do you want consulting provider notified?: Yes Consult Physician Urgent Consulting Provider: Jeff Ware Consult Reason/Comments: cva Do you want consulting provider notified?: Yes 05/05/24 16:21 Consult Physician Routine Consulting Provider: Kait Lucas Consult Reason/Comments: concern for chronic dissection on CTA neck Do you want consulting provider notified?: Yes Primary care physician: [facility] Course: 78 year old M with PMH of carotid stenosis, HTN, DM, BPH presents to the ED. He reports left facial droop and slurred speech that started this morning. Witnessed by the . No numbness/weakness/tinging of the extremities. No confusion. History of left carotid endarterectomy with patch angioplasty on 06/03/2022. In the ED he underwent extensive evaluation. BP 166/88, HR 71, T 97.7F, RR 16, 97% on RA. CBC, Coag panel, CMP significant for Na 129, BUN 21, Cr 1.32, glu 241. CT brain chronic small vessel ischemic changes. CTA head and neck showed moderate to severe atherosclerotic narrowing of the left vertebral artery, prominent atherosclerosis resulting in 50% distal CCA and 40% proximal R ICA with intraluminal webs concerning for ulcerated and remodeled plaque with chronic dissection difficult to exclude. CXR interstitial density and hyperinflation. EKG sinus rhythm with no ST elevation. In the ED his NIH score was 4. Neurointerventionalist was consulted from the ED who recommended tPA. Patient received tPA. Admitted to ICU for further workup and management. Repeat CT 24H post tPA was stable. He was started on ASA, Plavix and Lipitor. Unable to obtain MRI due to metallic dental work. Echo showed EF 55-60% with mild LVH, trace MR, trace-mild TR, small pericardial effusion. Vascular consulted, recommended outpatient follow up. 05/06 Patient was seen and examined. Wanting to go home. Discussed with ELMA Malave for discharge on ASA, Plavix and Lipitor. Advised follow up with PCP within 1-2 days, Neurology/Vascular Surgery/Cardiology within 1 week of discharge. General: non toxic, no distress, appears at stated age Derm: warm, dry Head: atraumatic, normocephalic, symmetric Eyes: EOMI, no lid lag, anicteric sclera Mouth: no lip lesion, mucus membranes moist Cardiovascular: S1S2 reg, no murmur Lungs: CTA bilateral, no rhonchi, no rales , no accessory muscle use Ext: no gross muscle atrophy, no edema, no contractures Neuro: no focal neuro deficits Psych: Alert, oriented, appropriate affect Discharge Diagnosis: CVA Carotid stenosis Hyponatremia DM with hyperglycemia CKD stage IIIa This complex discharge took 35 minutes to complete. Patient Condition at Discharge: Stable Plan - Discharge Summary New Discharge Prescriptions: New Atorvastatin [Lipitor] 80 mg PO HS #30 tab Clopidogrel [Plavix] 75 mg PO DAILY #30 tab Continue Ascorbic Acid [Vitamin C] 500 mg PO DAILY Aspirin [Adult Low Dose Aspirin EC] 81 mg PO DAILY Zinc Gluconate [Zinc] 50 mg PO DAILY Cayenne 500 mg PO DAILY cilostazoL [Pletal] 50 mg PO AC-BID metFORMIN HCL ER [Glucophage XR] 500 mg PO HS Red Yeast Rice 1,200 mg PO DAILY Acetaminophen Tab [Tylenol] 650 mg PO Q6H PRN PRN Reason: Pain Or Fever > 100.5 Tamsulosin HCl [Flomax] 0.4 mg PO DAILY Losartan [Cozaar] 50 mg PO DAILY Cholecalciferol [Vitamin D3 (25 Mcg = 1000 Iu)] 25 mcg PO DAILY Magnesium Oxide [Magnesium] 500 mg PO DAILY Discharge Medication List Ascorbic Acid [Vitamin C] 500 mg PO DAILY 10/13/19 [History] Aspirin [Adult Low Dose Aspirin EC] 81 mg PO DAILY 10/13/19 [History] Losartan [Cozaar] 50 mg PO DAILY 05/29/22 [History] Zinc Gluconate [Zinc] 50 mg PO DAILY 05/29/22 [History] Cayenne 500 mg PO DAILY 12/14/23 [History] Acetaminophen Tab [Tylenol] 650 mg PO Q6H PRN 05/05/24 [History] Cholecalciferol [Vitamin D3 (25 Mcg = 1000 Iu)] 25 mcg PO DAILY 05/05/24 [H istory] Magnesium Oxide [Magnesium] 500 mg PO DAILY 05/05/24 [History] Red Yeast Rice 1,200 mg PO DAILY 05/05/24 [History] Tamsulosin HCl [Flomax] 0.4 mg PO DAILY 05/05/24 [History] cilostazoL [Pletal] 50 mg PO AC-BID 05/05/24 [History] metFORMIN HCL ER [Glucophage XR] 500 mg PO HS 05/05/24 [History] Atorvastatin [Lipitor] 80 mg PO HS #30 tab 05/06/24 [Rx] Clopidogrel [Plavix] 75 mg PO DAILY #30 tab 05/06/24 [Rx] Follow up Appointment(s)/Referral(s): Kye Newby MD [STAFF PHYSICIAN] - 1 Week Kait Lucas DO [STAFF PHYSICIAN] - 1 Week None,Stated [REFERRING] - 1-2 days Jake Mejia DO [STAFF PHYSICIAN] - 1 Week Activity/Diet/Wound Care/Special Instructions: Diet: Cardiac Follow up with PCP within 1-2 days of discharge. Follow up with Neurology, Cardiology and Vascular Surgery within 1 week of discharge. Discharge Disposition: HOME SELF-CARE
[2024-05-06 13:35] VITALS: BP 163/91; PULSE 59
[2024-05-06] MEDS: ASPIRIN 81 MG PO SCH (13:41)
[2024-05-06] MEDS: CLOPIDOGREL 75 MG TAB PO SCH (13:41)
--- NOTE | 2024-05-06 16:52 | P.PN ---
Subjective Progress Note Date: 05/06/24 Principal diagnosis: Acute CVA This is an 78-year-old white male with history of hypertension, dyslipidemia, history of coronary artery disease and previous stent placement, patient presented to the ER with acute onset of left-sided facial weakness and slurred speech noted by his around 7:30 AM. Shortly after the patient was seen in the ER, brain CT showed mild patchy burden of chronic small vessel ischemic disease and no evidence of acute intracranial abnormality. CT angiography showed mostly moderate to severe atherosclerotic narrowing at the origin of the left vertebral artery, considering the presentation patient underwent thrombolytic therapy. Considering this patient will be admitted to the ICU as per protocol. During my evaluation, patient had no symptoms, there was no evidence of slurred speech, there was no evidence of left-sided weakness or any facial droop. Patient will be seen by neurology and again I am excepting the patient to the ICU for 24-hour observation Patient was seen today on 05/06/2024, patient is doing great, he is back to his b aseline, he has no neurological deficit whatsoever. Patient was seen by neurology, and he was cleared for discharge Objective - Vital Signs Vital signs: Vital Signs Temp 97.7 F 05/06/24 08:00 Pulse 59 L 05/06/24 13:00 Resp 10 L 05/06/24 13:00 BP 163/91 05/06/24 12:00 Pulse Ox 98 05/06/24 10:00 FiO2 Intake & Output 05/05/24 05/06/24 05/06/24 18:59 06:59 18:59 Intake Total 1540 100 Output Total 1100 600 Balance 440 -500 Weight 79.379 kg 85.5 kg Intake: Intake, IV Titration 1000 100 Amount Sodium Chloride 0.9% 1, 1000 100 000 ml @ 100 mls/hr IV . Q10H [facility] Rx#:[id number] Oral 540 Output: Urine 1100 600 Other: Voiding Method Toilet Toilet Urinal Urinal - Exam General: Revealed 78-year-old white male in no distress Head: Atraumatic normocephalic Skin: Skin is warm and dry and no rashes or lesions are noted. Eye: Pupils are equal, round and reactive to light, extra-ocular movements are intact; there is normal conjunctiva bilaterally. Ears, nose, mouth and throat: There are moist mucous membranes and no oral lesions. Neck: The neck is supple, there is no tenderness or JVD. Cardiovascular: There is a regular rate and rhythm. No murmur, rub or gallop is appreciated. Respiratory: Clear bilaterally no crackles rhonchi or wheezes Gastrointestinal: Soft, non-distended, non-tender abdomen without masses or organomegaly noted. There is no rebound or guarding present. Bowel sounds are unremarkable. Back: There is no tenderness to palpation in the midline. There is no obvious deformity. Musculoskeletal: Normal ROM, no tenderness, There is no pedal edema. There is no calf tenderness or swelling. No cords were appreciated. Neurological: CN II-XII intact, Cranial nerves III through XII are intact. There are no obvious motor or sensory deficits. Psychiatric: Cooperative, appropriate mood & affect, normal judgment. - Labs CBC & Chem 7: 05/06/24 02:45 05/06/24 02:45 Labs: Abnormal Lab Results - Last 24 Hours (Table) 05/05/24 05/05/24 05/06/24 Range/Units 17:14 20:02 02:45 Hgb (13.0-17.5) gm/dL Hct (39.0-53.0) % Sodium (137-145) mmol/L Chloride (98-107) mmol/L Carbon Dioxide (22-30) mmol/L BUN (9-20) mg/dL Creatinine (0.66-1.25) mg/dL Glucose (74-99) mg/dL POC Glucose (mg/dL) 201 H 153 H (70-110) mg/dL Hemoglobin A1c 9.0 H (<=6.0) % Triglycerides (0.00-149.00) mg/dL Cholesterol (0.00-200.00) mg/dL LDL Cholesterol Direct (0.00-129.00) mg/dL VLDL Cholesterol, Calc (5.00-40.00) mg/dL HDL Cholesterol (40.00-60.00) mg/dL 05/06/24 05/06/24 05/06/24 Range/Units 02:45 02:45 06:29 Hgb 12.5 L (13.0-17.5) gm/dL Hct 37.9 L (39.0-53.0) % Sodium 132 L (137-145) mmol/L Chloride 109 H (98-107) mmol/L Carbon Dioxide 20 L (22-30) mmol/L BUN 23 H (9-20) mg/dL Creatinine 1.42 H (0.66-1.25) mg/dL Glucose 151 H (74-99) mg/dL POC Glucose (mg/dL) 196 H (70-110) mg/dL Hemoglobin A1c (<=6.0) % Triglycerides 454.00 H (0.00-149.00) mg/dL Cholesterol 281.00 H (0.00-200.00) mg/dL LDL Cholesterol Direct 176.00 H (0.00-129.00) mg/dL VLDL Cholesterol, Calc 90.80 H (5.00-40.00) mg/dL HDL Cholesterol 34.10 L (40.00-60.00) mg/dL 05/06/24 Range/Units 11:48 Hgb (13.0-17.5) gm/dL Hct (39.0-53.0) % Sodium (137-145) mmol/L Chloride (98-107) mmol/L Carbon Dioxide (22-30) mmol/L BUN (9-20) mg/dL Creatinine (0.66-1.25) mg/dL Glucose (74-99) mg/dL POC Glucose (mg/dL) 195 H (70-110) mg/dL Hemoglobin A1c (<=6.0) % Triglycerides (0.00-149.00) mg/dL Cholesterol (0.00-200.00) mg/dL LDL Cholesterol Direct (0.00-129.00) mg/dL VLDL Cholesterol, Calc (5.00-40.00) mg/dL HDL Cholesterol (40.00-60.00) mg/dL Assessment and Plan Assessment: Impression: Acute ischemic CVA, status post thrombolytic treatment/tenecteplase patient did extremely well posttreatment History of coronary artery disease normally follows up with Dr. Gilliland, previous cardiac catheterization and stent placement History of diabetes type 2 Dyslipidemia Hypertension Recommendation: Agree with discharge planning Recommendations for treatment as per neurology on the case including dual antiplatelet therapy, Plavix, and aspirin, Lipitor, and follow-up on outpatient basis Time with Patient: Less than 30
[2024-05-06] MEDS ORDERED: HEPARIN SODIUM,PORCINE 5,000 UNIT/ML 1 ML VIAL SQ SCH (21:00)
--- NOTE | 2024-05-10 10:49 | CDI ---
Date: 05/10/2024 10:23:54 AM From: Anaya Diehl RN, CCDS Email: [email or web address] Admit Date: 05/05/2024 09:40:00 AM Patient Name: Julio Mead Visit Number: [id number] Discharge Date: 05/06/2024 02:16:00 PM ATTENTION: The Clinical Documentation Specialists (CDI) and [facility] Coding Staff appreciate your assistance in clarifying documentation. Please respond to the clarification below the line at the bottom and electronically sign. The CDI & [facility] Coding staff will review the response and follow-up if needed. Please note: Queries are made part of the Legal Health Record. If you have any questions, please contact the author of this message via ITS. Doctor Octaviano Starr The patient had documentation of concern for chronic dissection on CTA of neck. Based on this information and the findings below, clarification is requested. Patient history/risk factors: Carotid stenosis, HTN, DM, BPH. Presents to the ED with reports of left facial droop and slurred speech. Admitted with CVA s/p tPA Clinical Indicators: 05/05 CTA head/neck: Noncalcified plaque at the distal right common carotid artery contributes to a mild, just under 50% stenosis. At the level of the bifurcation, there are multiple intraluminal webs which may correspond to areas of ulcerated and remodeled plaque. Chronic dissection here is difficult to exclude. 05/05 H&P: "Carotid stenosis: Abnormal CTA neck concerning for chronic dissection and left vertebral artery stenosis." 05/06 Vascular surgery consult: "CTA head and neck reviewed independently by Dr. Lucas who does not believe that there is chronic dissection, more likely ulcerated plaque. There is no indication for any acute vascular surgical intervention." Treatment: ASA 81mg po daily 05/06; Lipitor 80mg po QHS 05/05, Plavix 75mg po daily 05/06; tPA on 05/05 Please clarify the diagnosis of chronic artery dissection: [ ] Chronic dissection of artery ruled in [ ] Chronic dissection of artery ruled out [ ] No additional diagnosis/Not clinically significant [ ] Unable to determine [ ] Other, please specify MTDD
== END 2024-05-06 14:16 | disposition home or self-care (01) | DRG 62 ==
LOC: EC 08:45 → 3SCARD 09:40 → 2SICU 10:01
PROVIDERS: ADMIT Family Medicine; ATTEND Family Medicine
DX: I63.231 Cerebral infarction due to unspecified occlusion or stenosis of right carotid arteries (principal); E87.1 Hypo-osmolality and hyponatremia; I12.9 Hypertensive chronic kidney disease with stage 1 through stage 4 chronic kidney disease, or unspecified chronic kidney disease; I65.02 Occlusion and stenosis of left vertebral artery; E11.65 Type 2 diabetes mellitus with hyperglycemia; E11.22 Type 2 diabetes mellitus with diabetic chronic kidney disease; E11.51 Type 2 diabetes mellitus with diabetic peripheral angiopathy without gangrene; N18.31 Chronic kidney disease, stage 3a; I25.10 Atherosclerotic heart disease of native coronary artery without angina pectoris; E78.5 Hyperlipidemia, unspecified; H91.90 Unspecified hearing loss, unspecified ear; R47.1 Dysarthria and anarthria; R29.810 Facial weakness; R47.01 Aphasia; R29.704 NIHSS score 4; N40.0 Benign prostatic hyperplasia without lower urinary tract symptoms; Z79.82 Long term (current) use of aspirin; Z79.02 Long term (current) use of antithrombotics/antiplatelets; I25.2 Old myocardial infarction; Z79.84 Long term (current) use of oral hypoglycemic drugs; Z79.899 Other long term (current) drug therapy; Z95.5 Presence of coronary angioplasty implant and graft; Z87.891 Personal history of nicotine dependence; Z98.890 Other specified postprocedural states
CPT/HCPCS: 36415; 70450; 70496; 70498; 71046; 80048; 80053; 80061; 82550; 83036; 83721; 83735; 85025; 85027; 85610; 85730; 93005; 93306; 96360; 96361; 99291

== ENCOUNTER 2024-09-19 23:06 | Observation (INO) | payer MEDICARE ==
--- NOTE | 2024-09-19 23:38 | ED ---
Recheck HPI - General Chief Complaint: Recheck/Abnormal Lab/Rx Stated Complaint: high blood pressure Time Seen by Provider: 09/19/24 23:14 Source: patient, RN notes reviewed, old records reviewed Mode of arrival: ambulatory Limitations: no limitations - History of Present Illness Initial Comments: This is an 79-year-old male with multiple complaints, feels like his heart is skipping a beat palpitations, patient also complaining of headache took Motrin does have solid help no chest pain or shortness of breath just feeling his heart skipping beat. Patient also noted his blood pressure to be significantly better Coming in for evaluation MD Complaint: other (Elevated blood pressure heart palpitations) -: hour(s) Symptoms Since Prior Visit: no new symptoms Context: planned re-check (Concern for elevated blood pressure) Associated Symptoms: none Treatments Prior to Arrival: other (0) - Related Data Home Medications Medication Instructions Recorded Confirmed metFORMIN HCL ER [Glucophage XR] 500 mg PO DAILY 05/05/24 09/23/24 Ascorbic Acid [Vitamin C] 1,000 mg PO DAILY 09/23/24 09/23/24 Cholecalciferol (Vitamin D3) 50 mcg PO DAILY 09/23/24 09/23/24 [Vitamin D3 (50 Mcg = 2000 Iu)] Losartan [Cozaar] 50 mg PO DAILY 09/23/24 09/23/24 Magnesium 250 mg PO DAILY 09/23/24 09/23/24 Red Yeast Rice 600 mg PO HS 09/23/24 09/23/24 Vitamin E (Dl,Tocopheryl Acet) 400 unit PO DAILY 09/23/24 09/23/24 [Vitamin E (400 Iu = 180 mg)] Zinc Gluconate [Zinc] 50 mg PO DAILY 09/23/24 09/23/24 Previous Rx's Medication Instructions Recorded Atorvastatin [Lipitor] 80 mg PO HS #30 tab 05/06/24 Clopidogrel [Plavix] 75 mg PO DAILY #30 tab 05/06/24 Dapagliflozin Propanediol [Farxiga] 10 mg PO DAILY 30 Days #30 tab 09/25/24 Ezetimibe [Zetia] 10 mg PO DAILY 30 Days #30 tab 09/25/24 amLODIPine [Norvasc] 5 mg PO DAILY 30 Days #30 tab 09/25/24 Allergies Allergy/AdvReac Type Severity Reaction Status Date / Time tamsulosin [From Flomax] Allergy Rash/Hives Verified 09/24/24 05:21 Review of Systems ROS Statement: Those systems with pertinent positive or pertinent negative responses have been documented in the HPI. ROS Other: All systems not noted in ROS Statement are negative. Past Medical History Past Medical History: Coronary Artery Disease (CAD), Chest Pain / Angina, Diabetes Mellitus, Hearing Disorder / Deafness, Hyperlipidemia, Hypertension, Myocardial Infarction ([place]), Osteoarthritis (OA), Prostate Disorder, Vascular Disorder Additional Past Medical History / Comment(s): Occasional vertigo, rushing noises in ears, tinnitis, problems hearing sometimes. Poor circulation left toes from former fracture. Last Myocardial Infarction Date:: 1993 History of Any Multi-Drug Resistant Organisms: None Reported Past Surgical History: Heart Catheterization With Stent Additional Past Surgical History / Comment(s): MULTIPLE HEART CATHS WITH ST ENTS(unsure how many)-DATES UNKNOWN, heart cath and aortogram 10/17/19, blockage removed left leg, angiogram September 2020 has had both legs worked on, bilateral cataract surgery. Past Anesthesia/Blood Transfusion Reactions: No Reported Reaction Additional Past Anesthesia/Blood Transfusion Reaction / Comment(s): No blood transfusion. Date of Last Stent Placement:: UNKNOWN Past Psychological History: No Psychological Hx Reported Smoking Status: Former smoker Past Alcohol Use History: Rare Past Drug Use History: None Reported - Past Family History Mother Family Medical History: No Reported History General Exam Limitations: no limitations General appearance: alert, in no apparent distress Head exam: Present: atraumatic, normocephalic, normal inspection Eye exam: Present: normal appearance, PERRL, EOMI. Absent: scleral icterus, conjunctival injection, periorbital swelling ENT exam: Present: normal exam, mucous membranes moist Neck exam: Present: normal inspection. Absent: tenderness, meningismus, lymphadenopathy Respiratory exam: Present: normal lung sounds bilaterally. Absent: respiratory distress, wheezes, rales, rhonchi, stridor Cardiovascular Exam: Present: regular rate, normal rhythm, normal heart sounds. Absent: systolic murmur, diastolic murmur, rubs, gallop, clicks GI/Abdominal exam: Present: soft, normal bowel sounds. Absent: distended, tenderness, guarding, rebound, rigid Extremities exam: Present: normal inspection, full ROM, normal capillary refill. Absent: tenderness, pedal edema, joint swelling, calf tenderness Back exam: Present: normal inspection Neurological exam: Present: alert, oriented X3, CN II-XII intact Psychiatric exam: Present: normal affect, normal mood Skin exam: Present: warm, dry, intact, normal color. Absent: rash Course Vital Signs 09/19/24 09/20/24 09/20/24 23:16 00:06 00:26 Temperature 97.7 F Pulse Rate 77 86 65 Pulse Rate [ Left Supine Pulse Oximetery ] Respiratory 16 18 18 Rate Blood Pressure 164/94 200/99 179/98 Blood Pressure [Left Arm Supine] O2 Sat by Pulse 98 98 97 Oximetry 09/20/24 09/20/24 09/20/24 00:44 01:12 01:22 Temperature Pulse Rate 64 57 L 60 Pulse Rate [ Left Supine Pulse Oximetery ] Respiratory 18 18 18 Rate Blood Pressure 191/106 165/78 153/83 Blood Pressure [Left Arm Supine] O2 Sat by Pulse 97 98 95 Oximetry 09/20/24 09/20/24 09/20/24 02:00 02:18 02:25 Temperature 97.4 F L 97.8 F Pulse Rate 56 L 61 Pulse Rate [ 58 L Left Supine Pulse Oximetery ] Respiratory 16 18 17 Rate Blood Pressure 108/67 104/58 Blood Pressure 112/69 [Left Arm Supine] O2 Sat by Pulse 94 L 95 95 Oximetry - Reevaluation(s) Reevaluation #1: 09/20/24 00:14 Medical records reviewed Reevaluation #2: 09/20/24 00:14 Patient symptoms continue to remain Patient does have a rash that is i not mproving with antihistamines Headache is resolved Patient's blood pressure is difficult to control Patient is starting to have involuntary twitching of the lower extremities Reevaluation #3: 09/20/24 00:49 Patient informed of results questions answered Reevaluation #4: Was pt. sent in by a medical professional or institution (, PA, INSTRUMENT ROOM TECHNICIAN, urgent care, hospital, or intermediate...) When possible be specific @ -no Did you speak to anyone other than the patient for history (EMS, parent, family, police, friend...)? What history was obtained from this source @ -no Did you review nursing and triage notes (agree or disagree)? Why? @ -agree Are old charts reviewed (outside hosp., previous admission, EMS record, old EKG, old radiological studies, urgent care reports/EKG's, intermediate records)? Re port findings @ -yes Differential Diagnosis (chest pain, altered mental status, abdominal pain women, abdominal pain men, vaginal bleeding, weakness, fever, dyspnea, syncope, headache, dizziness, GI bleed, back pain, seizure, CVA, palpatations, mental health, musculoskeletal)? @ -prior EKG interpreted by me (3pts min.). @ -yes X-rays interpreted by me (1pt min.). @ -yes negative for acute disease CT interpreted by me (1pt min.). @ -yes negative for acute disease U/S interpreted by me (1pt. min.). @ -no What testing was considered but not performed or refused? (CT, X-rays, U/S, labs)? Why? @ -none What meds were considered but not given or refused? Why? @ -none Did you discuss the management of the patient with other professionals (professionals i.e. , PA, INSTRUMENT ROOM TECHNICIAN, lab, RT, psych nurse, social insurance administrator, explosion welder, teacher, chief revenue officer, case coordinator)? Give summary @ -no Was smoking cessation discussed for >3mins.? @ -no Was critical care preformed (if so, how long)? @ -no Were there social determinants of health that impacted care today? How? (Homelessness, low income, unemployed, alcoholism, drug addiction, transportation, low edu. Level, literacy, decrease access to med. care, intermediate, rehab)? @ -none Was there de-escalation of care discussed even if they declined (Discuss DNR or withdrawal of care, Hospice)? DNR status @ -no What co-morbidities impacted this encounter? (DM, HTN, Smoking, COPD, CAD, Cancer, CVA, ARF, Chemo, Hep., AIDS, mental health diagnosis, sleep apnea, morbid obesity)? @ -none Was patient admitted / discharged? Hospital course, mention meds given and route, prescriptions, significant lab abnormalities, going to OR and other pertinent info. @ - 79 male to ER for evaluation patient presents with palpitations heart skipping a beat headache severe hypertension here in the emergency room. Patient will admit for hypertensive urgency, blood pressure control Admitted Undiagnosed new problem with uncertain prognosis? @ -no Drug Therapy requiring intensive monitoring for toxicity (Heparin, Nitro, Insulin, Cardizem)? @ -no Were any procedures done? @ -no Diagnosis/symptom? @ -Hypertensive urgency Acute, or Chronic, or Acute on Chronic? @ -Acute Uncomplicated (without systemic symptoms) or Complicated (systemic symptoms)? @ -Complicated Side effects of treatment? @ -no Exacerbation, Progression, or Severe Exacerbation? @ -exacerbation Poses a threat to life or bodily function? How? (Chest pain, [place], [place], pneumonia, PE, COPD, DKA, ARF, appy, cholecystitis, CVA, Diverticulitis, Homicidal, Suicidal, threat to staff... and all critical care pts) @ -yes severe hypertension - Consultations Consultation #1: spoke to sound physicians who agree to admit the patient Medical Decision Making - Medical Decision Making 79 male to ER for evaluation patient presents with palpitations heart skipping a beat headache severe hypertension here in the emergency room. Patient will admit for hypertensive urgency, blood pressure control - Lab Data Result diagrams: 09/19/24 23:34 09/19/24 23:34 Lab Results 09/19/24 09/19/24 09/19/24 Range/Units 23:34 23:34 23:34 WBC 6.94 (4.50-10.00) 10*3/uL RBC 4.62 (4.40-5.60) 10*6/uL Hgb 13.5 (13.0-17.0) g/dL Hct 37.4 L (39.6-50.0) % MCV 81.0 (80.0-97.0) fL MCH 29.2 (27.0-32.0) pg MCHC 36.1 (32.0-37.0) g/dL Plt Count 226 (140-440) 10*3/uL MPV 9.2 L (9.5-12.2) fL Immature Gran % (Auto) 0.4 % Neutrophils % 56.9 % Lymphocytes % 21.0 % Monocytes % 7.9 % Eosinophils % 12.5 % Basophils % 1.3 % Immature Gran # 0.03 (0.00-0.04) 10*3/uL Neutrophils # 3.94 (1.80-7.70) 10*3/uL Lymphocytes # 1.46 (0.90-5.00) 10*3/uL Monocytes # 0.55 (0.20-1.00) 10*3/uL Eosinophils # 0.87 H (0.04-0.35) 10*3/uL Basophils # 0.09 (0.00-0.10) 10*3/uL PT 9.9 L (10.0-12.5) sec INR 0.9 (<1.2) APTT 22.4 (22.0-30.0) sec Sodium 128 L (137-145) mmol/L Potassium 4.2 (3.5-5.1) mmol/L Chloride 95 L (98-107) mmol/L Carbon Dioxide 23 (22-30) mmol/L Anion Gap 10 mmol/L BUN 21 H (9-20) mg/dL Creatinine 1.33 H (0.66-1.25) mg/dL Est GFR (CKD-EPI)AfAm 58 (>60 ml/min/1.73 sqM) Est GFR (CKD-EPI)NonAf 50 (>60 ml/min/1.73 sqM) Glucose 216 H (74-99) mg/dL Calcium 10.1 (8.4-10.2) mg/dL Phosphorus 3.9 (2.5-4.5) mg/dL Magnesium 1.7 (1.6-2.3) mg/dL Total Bilirubin 0.4 (0.2-1.3) mg/dL AST 19 (17-59) U/L ALT 23 (4-49) U/L Alkaline Phosphatase 109 (38-126) U/L Troponin I (0.000-0.034) ng/mL Total Protein 7.1 (6.3-8.2) g/dL Albumin 4.2 (3.5-5.0) g/dL 09/20/24 Range/Units 00:28 WBC (4.50-10.00) 10*3/uL RBC (4.40-5.60) 10*6/uL Hgb (13.0-17.0) g/dL Hct (39.6-50.0) % MCV (80.0-97.0) fL MCH (27.0-32.0) pg MCHC (32.0-37.0) g/dL Plt Count (140-440) 10*3/uL MPV (9.5-12.2) fL Immature Gran % (Auto) % Neutrophils % % Lymphocytes % % Monocytes % % Eosinophils % % Basophils % % Immature Gran # (0.00-0.04) 10*3/uL Neutrophils # (1.80-7.70) 10*3/uL Lymphocytes # (0.90-5.00) 10*3/uL Monocytes # (0.20-1.00) 10*3/uL Eosinophils # (0.04-0.35) 10*3/uL Basophils # (0.00-0.10) 10*3/uL PT (10.0-12.5) sec INR (<1.2) APTT (22.0-30.0) sec Sodium (137-145) mmol/L Potassium (3.5-5.1) mmol/L Chloride (98-107) mmol/L Carbon Dioxide (22-30) mmol/L Anion Gap mmol/L BUN (9-20) mg/dL Creatinine (0.66-1.25) mg/dL Est GFR (CKD-EPI)AfAm (>60 ml/min/1.73 sqM) Est GFR (CKD-EPI)NonAf (>60 ml/min/1.73 sqM) Glucose (74-99) mg/dL Calcium (8.4-10.2) mg/dL Phosphorus (2.5-4.5) mg/dL Magnesium (1.6-2.3) mg/dL Total Bilirubin (0.2-1.3) mg/dL AST (17-59) U/L ALT (4-49) U/L Alkaline Phosphatase (38-126) U/L Troponin I <0.012 (0.000-0.034) ng/mL Total Protein (6.3-8.2) g/dL Albumin (3.5-5.0) g/dL - EKG Data -: EKG Interpreted by Me (EKG sinus 67 MD 216 QRS 74 QTc 394) - Radiology Data Radiology results: report reviewed (CT brain and chest x-ray are negative for acute disease), image reviewed Disposition Clinical Impression: Hypertension, Palpitations Disposition: HOME SELF-CARE Condition: Stable Is patient prescribed a controlled substance at d/c from ED?: No
[2024-09-19 23:48] LABS: Basophils # (A) 0.09 10*3/uL (0.00-0.10); Basophils % (A) 1.3 %; Eosinophils # (A) 0.87 10*3/uL (0.04-0.35); Eosinophils % (A) 12.5 %; HCT 37.4 % (39.6-50.0); HGB 13.5 g/dL (13.0-17.0); Lymphocytes # (A) 1.46 10*3/uL (0.90-5.00); MCH 29.2 pg (27.0-32.0); MCHC 36.1 g/dL (32.0-37.0); Mean Platelet Volume 9.2 fL (9.5-12.2); Monocytes # (A) 0.55 10*3/uL (0.20-1.00); Monocytes % (A) 7.9 %; Neutrophils # (A) 3.94 10*3/uL (1.80-7.70); Neutrophils % (A) 56.9 %; Platelet Count 226 10*3/uL (140-440); RBC 4.62 10*6/uL (4.40-5.60); RDW 12.5 % (11.5-14.5); WBC 6.94 10*3/uL (4.50-10.00)
[2024-09-19] MEDS: SODIUM CHLORIDE 0.9% 1,000 ML IV ONE (23:50)
[2024-09-19] MEDS: ONDANSETRON 4 MG/2 ML VIAL IVP STA (23:52)
[2024-09-19] MEDS: FAMOTIDINE 20 MG/2 ML VIAL IV STA (23:53)
[2024-09-19] MEDS: MORPHINE SULFATE 4 MG/ML SYRINGE IV STA (23:56)
[2024-09-19] MEDS: diphenhydrAMINE 50 MG/ML 1 ML VIAL IVP STA (23:56)
[2024-09-19] MEDS: DEXAMETHASONE SOD PHOSPHATE 10 MG/ML 1 ML VIAL IVP STA (23:56)
[2024-09-19 23:58] LABS: INR 0.9 (<1.2); Partial Thromboplastin Time 22.4 sec (22.0-30.0); Prothrombin Time 9.9 sec (10.0-12.5)
[2024-09-20] LABS: ALT 23 U/L (4-49); AST 19 U/L (17-59); African American GFR (CKD) 58 (>60 ml/min/1.73 sqM); Albumin 4.2 g/dL (3.5-5.0); Alkaline Phosphatase 109 U/L (38-126); Anion Gap 10 mmol/L; Blood Urea Nitrogen 21 mg/dL (9-20); Calcium 10.1 mg/dL (8.4-10.2); Carbon Dioxide 23 mmol/L (22-30); Chloride 95 mmol/L (98-107); Glucose 216 mg/dL (74-99); Magnesium 1.7 mg/dL (1.6-2.3); Non-African American GFR(CKD) 50 (>60 ml/min/1.73 sqM); Phosphorus 3.9 mg/dL (2.5-4.5); Potassium 4.2 mmol/L (3.5-5.1); Sodium 128 mmol/L (137-145); Total Bilirubin 0.4 mg/dL (0.2-1.3); Total Protein 7.1 g/dL (6.3-8.2)
[2024-09-20] MEDS: hydrOXYzine HCL 25 MG TAB PO STA (00:03)
[2024-09-20] MEDS: LABETALOL 5 MG/ML VIAL MDV IVP STA ×2 (00:16→00:49)
[2024-09-20] MEDS: cloNIDine HCL 0.2 MG TAB PO STA (00:50)
[2024-09-20] MEDS ORDERED: ONDANSETRON 4 MG/2 ML VIAL IVP PRN (00:55)
[2024-09-20] MEDS ORDERED: NALOXONE 0.4 MG/ML 1 ML VIAL IV PRN (00:55)
[2024-09-20] MEDS: MORPHINE SULFATE 4 MG/ML SYRINGE IV PRN (01:20)
--- NOTE | 2024-09-20 01:45 | CT ---
EXAM: CT Head Without Intravenous Contrast CLINICAL HISTORY: ITS.REASON CT Reason: fan TECHNIQUE: Axial computed tomography images of the head/brain without intravenous contrast. CTDI is 49.2 mGy and DLP is 1156.4 mGy-cm. This CT exam was performed using one or more of the following dose reduction techniques: automated exposure control, adjustment of the mA and/or kV according to patient size, and/or use of iterative reconstruction technique. COMPARISON: No relevant prior studies available. FINDINGS: Brain: No hemorrhage, herniation, or mass effect. Ventricles: No hydrocephalus. Age related cerebral volume loss. Bones/joints: Unremarkable. Soft tissues: Unremarkable. Sinuses: No air fluid levels. Mastoid air cells: Clear. IMPRESSION: No acute hemorrhage, hydrocephalus, or mass effect.
[2024-09-20] MEDS ORDERED: hydrALAZINE HCL 20 MG/ML 1 ML VIAL IVP PRN (02:23)
--- NOTE | 2024-09-20 02:41 | XR ---
EXAM: XR Chest, 1 View CLINICAL HISTORY: ITS.REASON XR Reason: cp TECHNIQUE: Frontal view of the chest. COMPARISON: No relevant prior studies available. FINDINGS: Lungs: No consolidation or mass. Minimal vascular congestion Pleural space: No acute findings. Heart: No cardiomegaly. Bones/joints: No acute findings. IMPRESSION: Minimal vascular congestion
[2024-09-20] MEDS ORDERED: DEXTROSE 50% SYRINGE 50 ML IVP PRN ×2 (03:05)
--- NOTE | 2024-09-20 04:20 | P.HPIM ---
History of Present Illness H&P Date: 09/20/24 Patient is a 79-year-old male with CAD (history of cath and stent placement), diabetes, hyperlipidemia, hypertension, CKD stage III, osteoarthritis, BPH, vertigo, history of carotid stenosis and CVA here for evaluation of headache and high blood pressure. Patient reported that during dinnertime on 09/19 he was experiencing a headache that was bitemporal with a burning pain an intensity of 6 out of 10 at maximum that was constant with associated palpitations. He decided to check his blood pressure and it recorded on their home manual blood pressure cuff that his systolic blood pressure was 190-200s. He denied lightheadedness, dizziness, vision changes, tinnitus, gait changes, facial asymmetry, speech changes, focal weakness, chest pain, shortness of breath, abdominal pain, or recent trauma or fall. He was recently admitted for CVA and carotid stenosis in May 2024 and was given Lipitor, Plavix and aspirin on discharge. On admission: Vitals: Temperature 97.7 F, pulse rate 86, respiratory rate 18, blood pressure 200/99, O2 saturation 98% on room air Labs: WBC 6.94, hemoglobin 13.1, platelet count 2 26,000, PT 9.9, INR 0.9, PTT 22.4, sodium 128, chloride 95, BUN 21, creatinine 1.33, glucose 216, magnesium 1.7, calcium 10.1, troponin less than 0.012,. Imaging: EKG showed sinus rhythm with first-degree AV block ID interval 216 MS, heart rate of 67 bpm, no ST-T changes, QTc [address] showed no acute hemorrhage, hydrocephalus or mass effect. Chest x-ray showed minimal vascular congestion. ED documentation reviewed. 1 L 0.9 normal saline bolus, hydroxyzine, labetalol, clonidine given in the ED. Review of systems: Pertinent positives and negatives as discussed in HPI, a complete review of systems was performed and all other systems are negative. Social history: Tobacco: Former smoker. Alcohol: Denies alcohol intake Recreational drugs: Denies illicit or recreational drug use Travel: No recent travel Physical examination: Vital signs reviewed General: non toxic, no distress, appears at stated age, on room air Derm: no unusual rashes/lesions, warm, papules with erythema noted on the bilateral lower extremtieis and bilateral shoulders Head: atraumatic, normocephalic, symmetric Eyes: EOMI, anicteric sclera, pupils equal round reactive to light ENT: Nose and ears atraumatic Neck: No cervical lymphadenopathy, trachea midline, supple Mouth: no lip lesion, mucus membranes moist Cardiovascular: S1S2 reg, no murmur, bilateral carotid bruits noted Lungs: CTA bilateral, no rhonchi, no rales, no accessory muscle use Abdominal: soft, nondistended, nontender to palpation, no guarding Ext: muscle strength 5 out of 5 in all 4 extremities grossly, no gross muscle atrophy, no contractures, positive dorsalis pedis pulse bilateral, no edema Neuro: CN II-XI grossly intact, no gross focal neuro deficits Psych: Alert and oriented x 3, appropriate affect and mood Assessment/Plan: 79-year-old male with extensive cardiac history and CVA here for evaluation of headache and elevated blood pressure. Found to have hypertensive urgency. Hyponatremia noted on labs. The patient is admitted with an anticipated greater than 2 midnight stay for evaluation of hypertensive urgency and hyponatremia Active: #. Hypertensive urgency - Clonidine, labetalol and hydroxyzine given in the ED. Blood pressure now at SBP 100s over 50s. - Increase Losartan to 100mg daily once SBP reaches 130s-140s -Initiate Amlodipine 5mg daily when SBP reaches 130-140s - 0.9 normal saline at 75 cc/h - Continue cardiac telemetry and monitoring vitals #. Hyponatremia, likely hypovolemic - Sodium at 128. Patient is asymptomatic - 0.9 normal saline at 75 cc/h - Monitor BMP #. CKD stage III, at baseline - Creatinine of 1.33 - Will monitor now #. Pruritic rash, likely contact dermatitis -Red papules noted on bilateral lower extremities and shoulders with erythema -Topical triamcinolone cream for pruritus -Continue to monitor Chronic Conditions: #. CAD (history of cath and stent placement) #. Diabetes #. Hyperlipidemia #. Hypertension #. CKD stage III #. Osteoarthritis #. BPH #. Vertigo #. History of carotid stenosis #. History of CVA -Resume home medications once reconciled -Last known A1c was 9% on 05/2024 -Glucose Accu-Cheks ACHS -Initiate Insulin sliding scale ACHS (check if have home insulin for sliding scale choice) -Monitor for hypoglycemia DVT ppx: Heparin SQ every 8 hours CODE STATUS: Full Discussed with: Patient and patient's partner Anticipated discharge place: Home Dee Kelsey MD PGY-1 Internal Medicine Dictation was produced using [employer] dictation software. please excuse any grammatical, word or spelling errors. Past Medical History Past Medical History: Coronary Artery Disease (CAD), Chest Pain / Angina, Diabetes Mellitus, Hearing Disorder / Deafness, Hyperlipidemia, Hypertension, Myocardial Infarction ([place]), Osteoarthritis (OA), Prostate Disorder, Vascular Disorder Additional Past Medical History / Comment(s): Occasional vertigo, rushing noises in ears, tinnitis, problems hearing sometimes. Poor circulation left toes from former fracture. Last Myocardial Infarction Date:: 1993 History of Any Multi-Drug Resistant Organisms: None Reported Past Surgical History: Heart Catheterization With Stent Additional Past Surgical History / Comment(s): MULTIPLE HEART CATHS WITH STENTS(unsure how many)-DATES UNKNOWN, heart cath and aortogram 10/17/19, blockage removed left leg, angiogram September 2020 has had both legs worked on, bilateral cataract surgery. Past Anesthesia/Blood Transfusion Reactions: No Reported Reaction Additional Past Anesthesia/Blood Transfusion Reaction / Comment(s): No blood transfusion. Date of Last Stent Placement:: UNKNOWN Past Psychological History: No Psychological Hx Reported Smoking Status: Former smoker Past Alcohol Use History: Rare Past Drug Use History: None Reported - Past Family History Mother Family Medical History: No Reported History Medications and Allergies Home Medications Medication Instructions Recorded Confirmed Type Ascorbic Acid [Vitamin C] 500 mg PO DAILY 10/13/19 05/05/24 History Aspirin [Adult Low Dose Aspirin EC] 81 mg PO DAILY 10/13/19 05/05/24 History Losartan [Cozaar] 50 mg PO DAILY 05/29/22 05/05/24 History Zinc Gluconate [Zinc] 50 mg PO DAILY 05/29/22 05/05/24 History Cayenne 500 mg PO DAILY 12/14/23 05/05/24 History Acetaminophen Tab [Tylenol] 650 mg PO Q6H PRN 05/05/24 05/05/24 History Cholecalciferol [Vitamin D3 (25 25 mcg PO DAILY 05/05/24 05/05/24 History Mcg = 1000 Iu)] Magnesium Oxide [Magnesium] 500 mg PO DAILY 05/05/24 05/05/24 History Red Yeast Rice 1,200 mg PO DAILY 05/05/24 05/05/24 History Tamsulosin HCl [Flomax] 0.4 mg PO DAILY 05/05/24 05/05/24 History cilostazoL [Pletal] 50 mg PO AC-BID 05/05/24 05/05/24 History metFORMIN HCL ER [Glucophage XR] 500 mg PO HS 05/05/24 05/05/24 History Atorvastatin [Lipitor] 80 mg PO HS #30 tab 05/06/24 Rx Clopidogrel [Plavix] 75 mg PO DAILY #30 tab 05/06/24 Rx Allergies Allergy/AdvReac Type Severity Reaction Status Date / Time No Known Allergies Allergy Verified 09/19/24 23:19 Physical Exam Vitals: Vital Signs Temp Pulse Resp BP Pulse Ox 09/20/24 01:22 60 18 153/83 95 09/20/24 01:12 57 L 18 165/78 98 09/20/24 00:44 64 18 191/106 97 09/20/24 00:26 65 18 179/98 97 09/20/24 00:06 86 18 200/99 98 09/19/24 23:16 97.7 F 77 16 164/94 98 Intake and Output 09/19/24 09/19/24 09/20/24 14:59 22:59 06:59 Other: Weight 79.379 kg Results CBC & Chem 7: 09/19/24 23:34 09/19/24 23:34 Labs: Abnormal Lab Results - Last 24 Hours (Table) 09/19/24 09/19/24 09/19/24 Range/Units 23:34 23:34 23:34 Hct 37.4 L (39.6-50.0) % MPV 9.2 L (9.5-12.2) fL Eosinophils # 0.87 H (0.04-0.35) 10*3/uL PT 9.9 L (10.0-12.5) sec Sodium 128 L (137-145) mmol/L Chloride 95 L (98-107) mmol/L BUN 21 H (9-20) mg/dL Creatinine 1.33 H (0.66-1.25) mg/dL Glucose 216 H (74-99) mg/dL Assessment and Plan Plan: Patient was seen by me on 09/20/24. I have seen and evaluated the patient. I reviewed the resident note and agree with chest pain secondary to uncontrolled hypertension. Agree with optimizing blood pressure. I have discussed with resident and agree with the resident findings and plan as documented in the resident's note.
[2024-09-20] MEDS: TRIAMCINOLONE 0.1% CREAM 80 GM TUBE TOPICAL SCH (05:37)
[2024-09-20] MEDS: SODIUM CHLORIDE 0.9% 1,000 ML IV SCH (05:37)
[2024-09-20 06:23] LABS: Glucose,Whole Blood 399 mg/dL (70-110)
[2024-09-20] MEDS: INSULIN LISPRO (HumaLOG) 100 UNIT/ML 10 mL VL SQ SCH (06:47)
[2024-09-20 07:52] VITALS: TEMP 98.2
[2024-09-20] MEDS: TAMSULOSIN 0.4 MG CAP.ER.24H PO SCH (09:18)
[2024-09-20] MEDS: ASPIRIN 81 MG PO SCH (09:19)
[2024-09-20] MEDS: HEPARIN SODIUM,PORCINE 5,000 UNIT/ML 1 ML VIAL SQ SCH (09:19)
[2024-09-20] MEDS: CLOPIDOGREL 75 MG TAB PO SCH (09:36)
--- NOTE | 2024-09-20 11:15 | P.CRDCN ---
History of Present Illness History of present illness: HISTORY OF PRESENT ILLNESS: This is a 79-year-old male with a past medical history significant for CVA, PAD with previous lower extremity intervention, hypertension, hyperlipidemia, diabe abisai, and CAD. Patient follows in the office with Dr. Newby. We have been asked to see the patient in consultation for hypertension. Patient examined at the bedside. Patient presented to the hospital due to palpitations. He reports feeling skipped beats at home. He also reports feeling woozy but denied any dizziness. He reports having a headache as well. Patient's blood pressures were found to be elevated with a systolic near 200. He states his blood pressure usually runs in the 130s at home. He was given multiple medications in the emergency room to lower his blood pressure. Blood pressure this morning 116/63. Telemetry reveals sinus mechanism. He is a non-smoker. DIAGNOSTICS: - EKG reveals sinus mechanism with no signs of acute ischemia. Low voltage QRS. - Chest xray minimal vascular congestion. - Laboratory data: WBC 6.94. Hemoglobin 13.5. Platelet count 226. Sodium 128. Potassium 4.2. BUN 21. Creatinine 1.33. Hemoglobin A1c 8.7. Troponin negative x 3. - Current home cardiac medications include Plavix 75 mg daily, Lipitor 80 mg at night. - Most recent echocardiogram obtained in May 2024 revealed ejection fraction 55 to 60%, trace MR, trace to mild TR small pericardial effusion - Cardiac catheterization history: 2019 with chronic total occlusion of the di stal RCA, mild to moderate nonobstructive disease involving the left coronary system REVIEW OF SYSTEMS: At the time of my exam: CONSTITUTIONAL: Denies fever or chills. HEENT: Denies blurred vision, vision changes, or eye pain. Denies hemoptysis CARDIOVASCULAR: Denies chest pain. Denies orthopnea. Denies PND. Denies palpitations RESPIRATORY: Denies shortness of breath. GASTROINTESTINAL: Denies abdominal pain. Denies nausea or vomiting. HEMATOLOGIC: Denies bleeding disorders. GENITOURINARY: Denies any blood in urine. SKIN: Denies pruitis. Denies rash. PHYSICAL EXAM: VITAL SIGNS: Reviewed. GENERAL: Well-developed in no acute distress. HEENT: Head is normocephalic. Pupils are equal, round. Sclerae anicteric. Mucous membranes of the mouth are moist. Neck supple. No JVD or thyromegaly LUNGS: Respirations even and unlabored. Lungs essentially clear to auscultation bilaterally. HEART: Regular rate and rhythm. S1 and S2 heard. ABDOMEN: Soft. Nondistended. Nontender. EXTREMITIES: Normal range of motion. No clubbing or cyanosis. Peripheral pulses intact. No lower extremity edema NEUROLOGIC: Awake and alert. Oriented x 3. ASSESSMENT: Hypertensive emergency, resolved Headache, secondary to above, resolved History of CVA, May 2024 History of CAD with known HAND CARVER of RCA PAD with previous lower extremity intervention Diabetes, uncontrolled, hemoglobin A1c 8.7 History of hypertension PLAN: No need to obtain echocardiogram as this was performed in May 2024 Resume home cardiac medications Patient with blood pressures on the lower side this morning. Will continue to monitor blood pressures and initiate antihypertensive medications if needed. No addition of blood pressure medications at this time Continue telemetry monitoring Further recommendations pending patient course Nurse practitioner note has been reviewed by physician. Signing provider agrees with the documented findings, assessment, and plan of care documented by FRINGE KNOTTER as a scribe. Past Medical History Past Medical History: Coronary Artery Disease (CAD), Chest Pain / Angina, Diabetes Mellitus, Hearing Disorder / Deafness, Hyperlipidemia, Hypertension, Myocardial Infarction (ID), Osteoarthritis (OA), Prostate Disorder, Vascular Disorder Additional Past Medical History / Comment(s): Occasional vertigo, rushing noises in ears, tinnitis, problems hearing sometimes. Poor circulation left toes from former fracture. Last Myocardial Infarction Date:: 1993 History of Any Multi-Drug Resistant Organisms: None Reported Past Surgical History: Heart Catheterization With Stent Additional Past Surgical History / Comment(s): MULTIPLE HEART CATHS WITH STENTS(unsure how many)-DATES UNKNOWN, heart cath and aortogram 10/17/19, blockage removed left leg, angiogram September 2020 has had both legs worked on, bilateral cataract surgery. Past Anesthesia/Blood Transfusion Reactions: No Reported Reaction Additional Past Anesthesia/Blood Transfusion Reaction / Comment(s): No blood transfusion. Date of Last Stent Placement:: UNKNOWN Past Psychological History: No Psychological Hx Reported Smoking Status: Former smoker Past Alcohol Use History: Rare Past Drug Use History: None Reported - Past Family History Mother Family Medical History: No Reported History Medications and Allergies Home Medications Medication Instructions Recorded Confirmed Type Tamsulosin HCl [Flomax] 0.4 mg PO DAILY 05/05/24 09/20/24 History metFORMIN HCL ER [Glucophage XR] 500 mg PO DAILY 05/05/24 09/20/24 History Atorvastatin [Lipitor] 80 mg PO HS #30 tab 05/06/24 09/20/24 Rx Clopidogrel [Plavix] 75 mg PO DAILY #30 tab 05/06/24 09/20/24 Rx Allergies Allergy/AdvReac Type Severity Reaction Status Date / Time No Known Allergies Allergy Verified 09/20/24 07:49 Physical Exam Vitals: Vital Signs Temp Pulse Pulse Resp BP BP Pulse Ox 09/20/24 07:00 98.2 F 57 L 16 116/63 96 09/20/24 02:25 97.8 F 61 17 104/58 95 09/20/24 02:18 56 L 18 108/67 95 09/20/24 02:00 97.4 F L 58 L 16 112/69 94 L 09/20/24 01:22 60 18 153/83 95 09/20/24 01:12 57 L 18 165/78 98 09/20/24 00:44 64 18 191/106 97 09/20/24 00:26 65 18 179/98 97 09/20/24 00:06 86 18 200/99 98 09/19/24 23:16 97.7 F 77 16 164/94 98 Intake and Output 09/19/24 09/20/24 09/20/24 22:59 06:59 14:59 Other: Voiding Method Toilet # Voids 1 Weight 79.379 kg Results 09/19/24 23:34 09/19/24 23:34 Cardiac Enzymes 09/19/24 09/20/24 09/20/24 Range/Units 23:34 00:28 03:39 AST 19 (17-59) U/L Troponin I <0.012 <0.012 (0.000-0.034) ng/mL 09/20/24 Range/Units 05:32 AST (17-59) U/L Troponin I <0.012 (0.000-0.034) ng/mL Coagulation 09/19/24 Range/Units 23:34 PT 9.9 L (10.0-12.5) sec APTT 22.4 (22.0-30.0) sec CBC 09/19/24 Range/Units 23:34 WBC 6.94 (4.50-10.00) 10*3/uL RBC 4.62 (4.40-5.60) 10*6/uL Hgb 13.5 (13.0-17.0) g/dL Hct 37.4 L (39.6-50.0) % Plt Count 226 (140-440) 10*3/uL Comprehensive Metabolic Panel 09/19/24 Range/Units 23:34 Sodium 128 L (137-145) mmol/L Potassium 4.2 (3.5-5.1) mmol/L Chloride 95 L (98-107) mmol/L Carbon Dioxide 23 (22-30) mmol/L BUN 21 H (9-20) mg/dL Creatinine 1.33 H (0.66-1.25) mg/dL Glucose 216 H (74-99) mg/dL Calcium 10.1 (8.4-10.2) mg/dL AST 19 (17-59) U/L ALT 23 (4-49) U/L Alkaline Phosphatase 109 (38-126) U/L Total Protein 7.1 (6.3-8.2) g/dL Albumin 4.2 (3.5-5.0) g/dL Current Medications Generic Name Dose Route Start Last Admin Trade Name Freq PRN Reason Stop Dose Admin Aspirin 81 mg 09/20/24 09:00 09/20/24 09:19 Aspirin 81 Mg PO 81 mg DAILY NEHAL Administration Atorvastatin Calcium 80 mg 09/20/24 21:00 Atorvastatin 80 Mg Tab PO HS NEHAL Clopidogrel Bisulfate 75 mg 09/20/24 09:15 09/20/24 09:36 Clopidogrel 75 Mg Tab PO 75 mg DAILY NEHAL Administration Dextrose/Water 25 ml 09/20/24 03:05 Dextrose 50% Syringe 50 Ml IVP PER PROTOCOL PRN Hypoglycemia Protocol Dextrose/Water 50 ml 09/20/24 03:05 Dextrose 50% Syringe 50 Ml IVP PER PROTOCOL PRN Hypoglycemia Protocol Heparin Sodium (Porcine) 5,000 unit 09/20/24 08:00 09/20/24 09:19 Heparin Sodium,Porcine 5,000 Unit/Ml 1 Ml Vial SQ 5,000 unit Q8HR NEHAL Administration Sodium Chloride 1,000 mls @ 75 mls/hr 09/20/24 03:00 09/20/24 05:37 Saline 0.9% IV 75 mls/hr .[id number] NHEAL Administration Insulin Human Lispro 0 unit 09/20/24 07:30 09/20/24 06:47 Insulin Lispro (Humalog) 100 Unit/Ml 10 Ml Vl SQ 10 unit ACHS NEHAL Administration Protocol Morphine Sulfate 4 mg 09/20/24 00:55 09/20/24 01:20 Morphine Sulfate 4 Mg/Ml Syringe IV 4 mg Q4HR PRN Administration Severe Pain (Scale 7 to 10) Naloxone HCl 0.2 mg 09/20/24 00:55 Naloxone 0.4 Mg/Ml 1 Ml Vial IV Q2M PRN Opioid Reversal Ondansetron HCl 4 mg 09/20/24 00:55 Ondansetron 4 Mg/2 Ml Vial IVP Q8HR PRN Nausea And Vomiting Tamsulosin HCl 0.4 mg 09/20/24 09:00 09/20/24 09:18 Tamsulosin 0.4 Mg Cap.Er.24h PO 0.4 mg DAILY NEHAL Administration Triamcinolone Acetonide 1 applic 09/20/24 04:30 09/20/24 09:20 Triamcinolone 0.1% Cream 80 Gm Tube TOPICAL 1 applic TID NEHAL Administration Protocol Intake and Output 09/19/24 09/20/24 09/20/24 22:59 06:59 14:59 Other: Voiding Method Toilet # Voids 1 Weight 79.379 kg 09/19/24 23:34 09/19/24 23:34
[2024-09-20 12:34] LABS: Glucose,Whole Blood 325 mg/dL (70-110)
[2024-09-20 12:57] LABS: Influenza A Not Detected (Not Detectd); Influenza B Not Detected (Not Detectd); RSV Not Detected (Not Detectd)
[2024-09-20 15:01] VITALS: BP 124/74; PULSE 63; RESP 14
--- NOTE | 2024-09-20 15:33 | P.DS ---
Providers Date of admission: 09/20/24 00:56 Expected date of discharge: 09/20/24 Attending physician: Anna Harper MD Consults: 09/20/24 00:55 Consult Physician Routine Consulting Provider: Hayder Moncada Consult Reason/Comments: HTN Do you want consulting provider notified?: Yes Primary care physician: [facility] Course: Discharge Diagnosis: Hypertensive urgency upon arrival. Resolved. Headache, likely secondary to above. Possibly triggered by allergies with elevated eosinophils. Resolved after resolution of hypertension. History of CAD status post stenting. Continue Plavix 75 mg daily and atorvastatin 80 mg nightly. BPH. Continue Flomax 0.4 mg daily. History of peripheral vascular disease. Continue Plavix 75 mg daily and atorvastatin 80 mg nightly. Diabetes mellitus with hyperglycemia. Patient to continue Glucophage 500 mg daily and recommend close monitoring of blood glucose levels as increased dose or additional medications may be needed. Hemoglobin A1c pending on discharge. Hospital Course: Patient is a pleasant 79-year-old male with a past medical history of CVA, PAD with previous lower extremity stenting, CAD status post stenting, hypertension, hyperlipidemia, BPH, CKD stage III, and vertigo. He presented to the emergency department with a chief complaint of headache and elevated blood pressures. Upon arrival to our facility, patient underwent evaluation in the emergency department. Vital signs upon arrival show blood pressure 164/94, heart rate 77, respiratory rate 16, temp 97.7 F, and SpO2 of 98% on room air. EKG was completed showing normal sinus rhythm at [address] brain completed negative for acute intracranial process. Chest x-ray completed showing minimal vascular congestion. Labs completed and reviewed. CBC showing no significant abnormalities, eosinophils were elevated at 0.87. Coagulation profile showing a low PT of 9.9 otherwise normal findings. BMP showing mild hyponatremia with sodium of 128 and chloride of 95 with elevated renal function consistent with known CKD stage III with BUN of 21, creatinine 1.33, GFR 50. Blood glucose was elevated at 216. Troponin was negative at less than 0.012. Patient was admitted under our services with consultation to cardiology. Troponins were trended all negative at less than 0.012 x 3 draws. Cepheid 4 Plex viral panel was completed and negative. Patient did have elevated pressures overnight as high as 200/99 and received a dose of IV labetalol by ED physician. Following blood pressures remained controlled and on the lower side and trended for greater than 12 hours resulting at 112/69, 108/67, 104/58, 116/63, 100/54, and 124/74. Patient had full resolution of headache. He was evaluated by cardiology clearing patient from cardiac perspective for discharge at this time. Patient medically optimized for discharge and to [facility] as [facility] on 10/07/2024 and with cardiology in 1 week. Physical exam: Patient seen and examined at bedside. Vital signs reviewed and stable. General: Nontoxic, no distress and appears stated age. Derm: Skin warm and dry, normal coloration for ethnicity. Head: Atraumatic, normocephalic and symmetric. Eyes: EOM's intact, no lid lag, and anicteric sclera Mouth: no lip lesions, mucus membranes moist Cardiovascular: regular rate and rhythm with normal S1S2, no murmur, positive posterior tibial pulses bilaterally, and cap refill < 2 seconds. Lungs: Respirations even, regular, and unlabored on room air. Lungs CTA bilaterally, no rhonchi, no rales, no wheezing, and no accessory muscle usage. Abdominal: soft, nontender to palpation, no guarding, no appreciable organomegaly Ext: ROM intact. No gross muscle atrophy, no edema, no contractures Neuro: Speech clear, face symmetrical and CN II-XII grossly intact with no noted focal neuro deficits Psych: Alert and oriented to person, place, time, and situation. Appropriate and pleasant affect. A total of 35 minutes of time were spent preparing this complex discharge summary. Pt was discharged on 09/20/2024 at 3:32 PM Patient was seen independently by Nurse Practitioner. This document was prepared using [employer] dictation software. Please allow for errors in cotton sampler while rare they do occur. Chase Jacobsen NP rendered care for this patient independently, reviewed the findings and plan as documented in the note above. I did not physically speak with or examine the patient on this date. Patient Condition at Discharge: Stable Plan - Discharge Summary Discharge Rx Participant: No New Discharge Prescriptions: Continue metFORMIN HCL ER [Glucophage XR] 500 mg PO DAILY Tamsulosin HCl [Flomax] 0.4 mg PO DAILY Atorvastatin [Lipitor] 80 mg PO HS #30 tab Clopidogrel [Plavix] 75 mg PO DAILY #30 tab Discharge Medication List Tamsulosin HCl [Flomax] 0.4 mg PO DAILY 05/05/24 [History] metFORMIN HCL ER [Glucophage XR] 500 mg PO DAILY 05/05/24 [History] Atorvastatin [Lipitor] 80 mg PO HS #30 tab 05/06/24 [Rx] Clopidogrel [Plavix] 75 mg PO DAILY #30 tab 05/06/24 [Rx] Follow up Appointment(s)/Referral(s): Hayder Moncada MD [STAFF PHYSICIAN] - 1 Week [facility] [NON-STAFF] - 10/07/24 10:00 am Patient Instructions/Handouts: Heart Palpitations (ED), Hypertension (ED) Activity/Diet/Wound Care/Special Instructions: Activity: As tolerated. Take breaks as needed. Diet: Heart healthy and carb consistent diet. Avoid salts, or foods with hidden salts such as canned or boxed foods and frozen dinners. Extra salt makes your heart work harder and traps the fluid in your body for longer. Special Instructions: Take all of your medications as directed and remember to keep all of your doctor's appointments and follow-up as needed. Thank you for allowing us to participate in your care, it was truly a pleasure having you for our patient!!! Discharge Disposition: HOME SELF-CARE
[2024-09-20] MEDS ORDERED: ATORVASTATIN 80 MG TAB PO SCH (21:00)
[2024-09-20] MEDS ORDERED: ATORVASTATIN 40 MG TAB PO SCH (21:00)
== END 2024-09-20 16:52 | disposition home or self-care (01) ==
LOC: EC 23:06 → 6NMEDSUR 09-20 00:56
PROVIDERS: ADMIT Internal Medicine; ATTEND Internal Medicine
DX: I16.1 Hypertensive emergency (principal); I25.82 Chronic total occlusion of coronary artery; I25.10 Atherosclerotic heart disease of native coronary artery without angina pectoris; I12.9 Hypertensive chronic kidney disease with stage 1 through stage 4 chronic kidney disease, or unspecified chronic kidney disease; N18.30 Chronic kidney disease, stage 3 unspecified; E11.22 Type 2 diabetes mellitus with diabetic chronic kidney disease; E11.65 Type 2 diabetes mellitus with hyperglycemia; I65.29 Occlusion and stenosis of unspecified carotid artery; E87.1 Hypo-osmolality and hyponatremia; E11.51 Type 2 diabetes mellitus with diabetic peripheral angiopathy without gangrene; N40.0 Benign prostatic hyperplasia without lower urinary tract symptoms; E78.5 Hyperlipidemia, unspecified; M19.90 Unspecified osteoarthritis, unspecified site; R21 Rash and other nonspecific skin eruption; L29.9 Pruritus, unspecified; Z79.82 Long term (current) use of aspirin; Z79.84 Long term (current) use of oral hypoglycemic drugs; Z79.02 Long term (current) use of antithrombotics/antiplatelets; Z79.899 Other long term (current) drug therapy; Z87.891 Personal history of nicotine dependence; Z95.5 Presence of coronary angioplasty implant and graft; Z86.73 Personal history of transient ischemic attack (TIA), and cerebral infarction without residual deficits
CPT/HCPCS: 96372; 96376; 96361; 96374; 96375 ×2; 99285; 36415 ×2; 93005; 80053; 83735; 84100; 84484; 85025; 85610; 85730; 83036; 87636; 71045; 70450; G0378; J2270 ×2; J1200; J1644; J1100; J3360; J2405; J1920; J1308

== ENCOUNTER 2024-09-23 09:24 | Observation (INO) | payer MEDICARE ==
--- NOTE | 2024-09-23 11:37 | XR ---
EXAMINATION TYPE: XR chest 2V DATE OF EXAM: 09/23/2024 11:23 AM COMPARISON: Chest radiographs from 05/05/2024 TECHNIQUE: XR chest 2V Frontal and lateral views of the chest. CLINICAL INDICATION:Male, 79 years old with history of Arm Pain/Chest Pain; FINDINGS: Lungs/Pleura: There is no evidence of pleural effusion, focal consolidation, or pneumothorax. Chroni c senescent parenchymal change. Pulmonary vascularity: Unremarkable. Heart/mediastinum: Cardiomediastinal silhouette is unremarkable. Atherosclerotic calcifications are seen in the aorta. Musculoskeletal: No acute osseous pathology. IMPRESSION: No acute cardiopulmonary disease/process. [facility], , 09/23/2024 11:35 AM
[2024-09-23 11:58] LABS: ALT 27 U/L (4-49); African American GFR (CKD) 77 (>60 ml/min/1.73 sqM); Anion Gap 11 mmol/L; Basophils # (A) 0.13 10*3/uL (0.00-0.10); Basophils % (A) 1.8 %; Blood Urea Nitrogen 26 mg/dL (9-20); Calcium 9.4 mg/dL (8.4-10.2); Carbon Dioxide 20 mmol/L (22-30); Chloride 102 mmol/L (98-107); Eosinophils # (A) 0.67 10*3/uL (0.04-0.35); Eosinophils % (A) 9.5 %; Glucose 237 mg/dL (74-99); HCT 39.9 % (39.6-50.0); HGB 13.7 g/dL (13.0-17.0); Lymphocytes # (A) 1.36 10*3/uL (0.90-5.00); Lymphocytes % (A) 19.2 %; MCH 28.4 pg (27.0-32.0); MCHC 34.3 g/dL (32.0-37.0); MCV 82.6 fL (80.0-97.0); Mean Platelet Volume 9.3 fL (9.5-12.2); Monocytes # (A) 0.61 10*3/uL (0.20-1.00); Monocytes % (A) 8.6 %; Neutrophils # (A) 4.28 10*3/uL (1.80-7.70); Neutrophils % (A) 60.5 %; Non-African American GFR(CKD) 67 (>60 ml/min/1.73 sqM); Platelet Count 212 10*3/uL (140-440); RBC 4.83 10*6/uL (4.40-5.60); Sodium 133 mmol/L (137-145); WBC 7.08 10*3/uL (4.50-10.00)
[2024-09-23 12:09] LABS: AST 31 U/L (17-59); Alkaline Phosphatase 60 U/L (38-126); Potassium 5.2 mmol/L (3.5-5.1); Total Bilirubin 0.8 mg/dL (0.2-1.3); Total Protein 7.1 g/dL (6.3-8.2)
--- NOTE | 2024-09-23 12:18 | CT ---
EXAMINATION TYPE: CT brain wo con CT DLP: 1117.4 mGycm, Automated exposure control for dose reduction was used. DATE OF EXAM: 09/23/2024 12:10 PM COMPARISON: CT brain 09/20/2024, 05/06/2024, CTA head and neck 05/05/2024 CLINICAL INDICATION:Male, 79 years old with history of Headache, TECHNIQUE: Brain: Multiple axial CT images of the brain were obtained without IV contrast. . Coronal and sagitta l reformats reviewed. FINDINGS: Brain: Extra-axial spaces: No abnormal extra-axial fluid collections. Calcification along the falx and tento rium. Ventricular system: Within normal limits Cerebral parenchyma: Cerebral atrophy. No acute intraparenchymal hemorrhage or mass effect. The morrow -white junction is well differentiated. Scattered hypoattenuating areas are seen within the periventr icular white matter. Cerebellum: Unremarkable. Mass effect: No evidence of midline shift. Intracranial vasculature: Atherosclerotic calcifications of the intracranial vessels. Soft tissues: Normal. Calvarium/osseous structures: No depressed skull fracture. Paranasal sinuses and mastoid air cells: The mastoid air cells are clear. Minimal mucosal thickening of the inferior left maxillary sinus. Minimal mucosal thickening in the ethmoid sinuses. Visualized orbits: Bilateral aphakia IMPRESSION: 1. No acute intracranial process. 2. Nonspecific white matter changes, likely secondary to chronic small vessel ischemic disease. [facility], , 09/23/2024 12:16 PM
[2024-09-23] MEDS ORDERED: NITROGLYCERIN SL TABS 0.4 MG TAB SUBLINGUAL PRN (14:34)
[2024-09-23] MEDS: ASPIRIN 81 MG PO STA (15:02)
[2024-09-23] MEDS: NITROGLYCERIN OINT 1 INCH/GM PACKET TOPICAL SCH (15:04)
--- NOTE | 2024-09-23 15:37 | P.HPIM ---
History of Present Illness H&P Date: 09/23/24 History of Presenting Illness: Patient is a pleasant 79-year-old male with a past medical history of CVA, PAD with previous lower extremity stenting, CAD status post stenting, hypertension, hyperlipidemia, BPH, CKD stage III, and vertigo. He presented to the emergency department with a chief complaint of left arm pain and tingling with hypertension. Patient reports left arm pain and tingling is similar to symptoms he felt when he had his previous stents placed. He denies having any headache, lightheadedness, dizziness, chest pain or palpitations, shortness of breath, co ugh or congestion, nausea or vomiting, or experiencing any numbness or weakness in his extremities. Patient reports he follows with director biologics Dr. Newby. Patient recently underwent hospitalization on 09/20/2024 secondary to hypertensive urgency and headache. Upon arrival to our facility, patient underwent evaluation in the emergency department. Vital signs upon arrival show blood pressure 170/93, heart rate 56, respiratory rate 18, temp 97.7 F, and SpO2 of 98% on room air. EKG was completed showing sinus bradycardia 58 bpm. Chest x-ray completed negative for acute cardiopulmonary process. CT brain completed negative for acute intercranial process showing nonspecific white matter changes likely secondary to chronic small vessel ischemic disease. Labs were completed and reviewed. CBC unremarkable. BMP showing hyponatremia with sodium of 133 and hyperkalemia with potassium of 5.2 but was a hemolyzed specimen, bicarb was 20, BUN slightly elevated at 26 otherwise normal findings. Blood glucose also elevated at 237. Liver profile unremarkable. Troponin was negative at less than 0.012. Patient admitted under services with consultation to cardiology Review of systems: Pertinent positives and negatives as discussed in HPI, a complete review of systems was performed and all other systems are negative. Physical exam: Vital signs reviewed and stable. General: Nontoxic, no distress and appears stated age. Derm: Skin warm and dry, normal coloration for ethnicity. Head: Atraumatic, normocephalic and symmetric. Eyes: EOM's intact, no lid lag, and anicteric sclera Mouth: no lip lesions, mucus membranes moist Cardiovascular: regular rate and rhythm with normal S1S2, no murmur, positive posterior tibial pulses bilaterally, and cap refill < 2 seconds. Lungs: Respirations even, regular, and unlabored on room air. Lungs CTA bilaterally, no rhonchi, no rales, no wheezing, and no accessory muscle usage. Abdominal: soft, nontender to palpation, no guarding, no appreciable organomegaly Ext: ROM intact. No gross muscle atrophy, no edema, no contractures Neuro: Speech clear, face symmetrical and CN II-XII grossly intact with no noted focal neuro deficits Psych: Alert and oriented to person, place, time, and situation. Appropriate and pleasant affect. Assessment and Plan of Care: Left arm pain and tingling, , rule out acute coronary event Hypertensive urgency History of CAD status post stenting History of hypertension Hyperlipidemia -Cardiology consulted, appreciate recommendations -Telemetry monitoring -Trend troponins -Cardiac diet, NPO at midnight -Continue medication regimen with aspirin 81 mg daily, atorvastatin 80 mg nightly, Plavix 75 mg daily, and losartan 50 mg daily. In addition patient started on hydrochlorothiazide 25 mg daily at this time secondary to elevated pressures -Echocardiogram recently completed 05/2024 reported reveal a preserved EF of 55 to 60% with trace mitral regurgitation, trace to mild tricuspid regurgitation, and a small pericardial effusion. Hyperkalemia -Potassium slightly elevated at 5.2 reported to be a hemolyzed specimen, at this time patient may continue losartan pending repeat labs and will start patient on hydrochlorothiazide 25 mg daily in addition secondary to elevated blood pressures. Diabetes mellitus with hyperglycemia -Patient newly diagnosed diabetes mellitus recently started on metformin. At this time we will hold metformin and place patient on glycemic protocol with NovoLog sliding scale History of PAD with previous lower extremity stenting History of CVA -Continue dual antiplatelet therapy with aspirin 81 mg daily, Plavix 75 mg daily, and atorvastatin 80 mg nightly. BPH -Continue daily medication regimen with Flomax 0.4 mg daily. Data and imaging reviewed: As stated above in HPI The patient is admitted with an anticipated less than 2 midnight stay for evaluation of left arm pain and tingling and elevated blood pressures CODE STATUS: Full code DVT prophylaxis: Lovenox Discussed with: Patient, RN, patient's at bedside, and ED physician. Anticipated discharge date: Pending clinical course Anticipated discharge place: Home Patient was seen independently by Nurse Practitioner. This document was prepared using [employer] dictation software. Please allow for errors in plant breeder scientist while rare they do occur. Chase Jacobesn NP rendered care for this patient independently, reviewed the findings and plan as documented in the note above and agree with plan. I did not physically speak with or examine the patient on this date. Past Medical History Past Medical History: Coronary Artery Disease (CAD), Chest Pain / Angina, Diabetes Mellitus, Hearing Disorder / Deafness, Hyperlipidemia, Hypertension, Myocardial Infarction ([place]), Osteoarthritis (OA), Prostate Disorder, Vascular Disorder Additional Past Medical History / Comment(s): Occasional vertigo, rushing noises in ears, tinnitis, problems hearing sometimes. Poor circulation left toes from former fracture. Last Myocardial Infarction Date:: 1993 History of Any Multi-Drug Resistant Organisms: None Reported Past Surgical History: Heart Catheterization With Stent Additional Past Surgical History / Comment(s): MULTIPLE HEART CATHS WITH STENTS(unsure how many)-DATES UNKNOWN, heart cath and aortogram 10/17/19, blockage removed left leg, angiogram September 2020 has had both legs worked on, bilateral cataract surgery. Past Anesthesia/Blood Transfusion Reactions: No Reported Reaction Additional Past Anesthesia/Blood Transfusion Reaction / Comment(s): No blood transfusion. Date of Last Stent Placement:: UNKNOWN Past Psychological History: No Psychological Hx Reported Smoking Status: Former smoker Past Alcohol Use History: Rare Past Drug Use History: None Reported - Past Family History Mother Family Medical History: No Reported History Medications and Allergies Home Medications Medication Instructions Recorded Confirmed Type Tamsulosin HCl [Flomax] 0.4 mg PO DAILY 05/05/24 09/23/24 History metFORMIN HCL ER [Glucophage XR] 500 mg PO DAILY 05/05/24 09/23/24 History Atorvastatin [Lipitor] 80 mg PO HS #30 tab 05/06/24 09/23/24 Rx Clopidogrel [Plavix] 75 mg PO DAILY #30 tab 05/06/24 09/23/24 Rx Ascorbic Acid [Vitamin C] 1,000 mg PO DAILY 09/23/24 09/23/24 History Cholecalciferol (Vitamin D3) 50 mcg PO DAILY 09/23/24 09/23/24 History [Vitamin D3 (50 Mcg = 2000 Iu)] Losartan [Cozaar] 50 mg PO DAILY 09/23/24 09/23/24 History Magnesium 250 mg PO DAILY 09/23/24 09/23/24 History Red Yeast Rice 600 mg PO HS 09/23/24 09/23/24 History Vitamin E (Dl,Tocopheryl Acet) 400 unit PO DAILY 09/23/24 09/23/24 History [Vitamin E (400 Iu = 180 mg)] Zinc Gluconate [Zinc] 50 mg PO DAILY 09/23/24 09/23/24 History Allergies Allergy/AdvReac Type Severity Reaction Status Date / Time No Known Allergies Allergy Verified 09/23/24 13:02 Physical Exam Vitals: Vital Signs Temp Pulse Resp BP Pulse Ox 09/23/24 14:58 98.0 F 52 L 18 166/89 97 09/23/24 13:30 97.7 F 56 L 18 170/93 98 Results CBC & Chem 7: 09/23/24 10:40 09/23/24 10:40 Labs: Abnormal Lab Results - Last 24 Hours (Table) 09/23/24 09/23/24 Range/Units 10:40 10:40 MPV 9.3 L (9.5-12.2) fL Eosinophils # 0.67 H (0.04-0.35) 10*3/uL Basophils # 0.13 H (0.00-0.10) 10*3/uL Sodium 133 L (137-145) mmol/L Potassium 5.2 H (3.5-5.1) mmol/L Carbon Dioxide 20 L (22-30) mmol/L BUN 26 H (9-20) mg/dL Glucose 237 H (74-99) mg/dL
[2024-09-23] MEDS ORDERED: DEXTROSE 50% SYRINGE 50 ML IVP PRN ×2 (16:01)
[2024-09-23 17:14] LABS: Glucose,Whole Blood 180 mg/dL (70-110)
[2024-09-23] MEDS: INSULIN LISPRO (HumaLOG) 100 UNIT/ML 10 mL VL SQ SCH (17:18)
[2024-09-23] MEDS: hydroCHLOROthiazide 25 MG TAB PO SCH (19:24)
[2024-09-23 20:03] LABS: Glucose,Whole Blood 225 mg/dL (70-110)
[2024-09-23] MEDS: ATORVASTATIN 80 MG TAB PO SCH (20:08)
[2024-09-24 06:17] LABS: Glucose,Whole Blood 203 mg/dL (70-110)
[2024-09-24] MEDS: TAMSULOSIN 0.4 MG CAP.ER.24H PO SCH (07:38)
[2024-09-24] MEDS ORDERED: ASPIRIN 325 MG TAB PO SCH (09:00)
[2024-09-24] MEDS: CHOLECALCIFEROL 25 MCG (1000 IU) TABLET PO SCH (09:29)
[2024-09-24] MEDS: CLOPIDOGREL 75 MG TAB PO SCH (09:29)
[2024-09-24] MEDS: ZINC SULFATE 220 MG CAP PO SCH (09:29)
[2024-09-24] MEDS: MAGNESIUM OXIDE 400 MG TAB PO SCH (09:29)
[2024-09-24] MEDS: ASPIRIN 81 MG PO SCH (09:30)
[2024-09-24] MEDS: ASCORBIC ACID 500 MG TAB PO SCH (09:30)
[2024-09-24] MEDS: LOSARTAN 50 MG TAB PO SCH (09:30)
[2024-09-24 09:48] LABS: HCT 36.9 % (39.6-50.0); HGB 12.2 g/dL (13.0-17.0); MCHC 33.1 g/dL (32.0-37.0); MCV 84.6 FL (80.0-97.0); Mean Platelet Volume 9.6 FL (9.5-12.2); NRBC Per 100 WBC 0 X 10*3/uL (0.00-0.01); Platelet Count 214 X 10*3/uL (140-440); RBC 4.36 X 10*6/uL (4.40-5.60)
[2024-09-24] MEDS: ENOXAPARIN 40 MG/0.4 ML SYRINGE SQ SCH (11:09)
[2024-09-24 11:17] LABS: BUN/Creat Ratio 20.31 Ratio (12.00-20.00); Blood Urea Nitrogen 26.4 mg/dL (9.0-27.0); Chol/HDL Ratio 6.99 Ratio; Glucose 200 mg/dL (70-110)
[2024-09-24 11:18] LABS: Carbon Dioxide 18.8 mmol/L (21.6-31.8); Chloride 103 mmol/L (96-109); LDL Cholesterol,Calculated 164.7 mg/dL (0.0-131.0); Potassium 4.4 mmol/L (3.5-5.5); Sodium 137 mmol/L (135-145)
--- NOTE | 2024-09-24 12:11 | P.CRDCN ---
History of Present Illness Consult date: 09/24/24 History of present illness: Patient is a 79-year-old male with past medical history of CVA May 2024, PAD with lower extremity intervention, hypertension dyslipidemia diabetes and CAD with known GRAIN MANAGER of RCA. Known to Dr. Gilliland. Was here last week with elevated blood pressure but his blood pressure spontaneously came down after a as needed medication. He was not discharged on any blood pressure medications thereafter. Yesterday presented to the hospital again with concerns of tingling sensation in the left arm along with noticing to have high blood pressure. He denies any lightheadedness dizziness chest pressure. He reports that he had a stress test done in March 2024 and the results of them were within acceptable ranges. Admission EKG shows sinus rhythm with no signs of acute ischemia Labs were essentially within acceptable ranges with troponin not being elevated, however his HbA1c was 8.7 on last admission and lipid panel was uncontrolled with LDL in 160s, elevated TG His last echo from May shows an EF of 55 to 60% with mild MR mild TR heart catheter in 2019 showed GRAIN MANAGER of RCA with mild to moderate nonobstructive disease in left coronary system. On exam S1-S2 is audible, no significant murmurs appreciated lungs are clear to ausculta te with no crackles wheezing or rhonchi Good pulses in bilateral upper and lower extremity Abdomen is nondistended and nontender No focal neurological deficits, detailed neuroexam was not performed, alert oriented x 3 Impression Left arm tingling sensation, resolved after blood pressure got better Essential hypertension, poorly controlled Dyslipidemia Type 2 diabetes Prior history of CVA May 2024 Prior history of PAD Prior history of CAD with known GRAIN MANAGER of RCA with residual mild-moderate disease in the left coronary system Plan Continue aspirin Plavix Lipitor 40 mg, Zetia 10 mg Losartan 50 mg daily. Discontinue HCTZ and instead start amlodipine 5 mg and Farxiga 10 mg daily Monitor blood pressure overnight, if blood pressures okay tomorrow, consider discharging with recommended outpatient follow-up with Dr. Gilliland. He has a carotid Doppler scheduled for him in September. Past Medical History Past Medical History: Coronary Artery Disease (CAD), Chest Pain / Angina, Diabetes Mellitus, Hearing Disorder / Deafness, Hyperlipidemia, Hypertension, M yocardial Infarction ([place]), Osteoarthritis (OA), Prostate Disorder, Vascular Disorder Additional Past Medical History / Comment(s): Occasional vertigo, rushing noises in ears, tinnitis, problems hearing sometimes. Poor circulation left toes from former fracture. Last Myocardial Infarction Date:: 1993 History of Any Multi-Drug Resistant Organisms: None Reported Past Surgical History: Heart Catheterization With Stent Additional Past Surgical History / Comment(s): MULTIPLE HEART CATHS WITH STENTS(unsure how many)-DATES UNKNOWN, heart cath and aortogram 10/17/19, blockage removed left leg, angiogram September 2020 has had both legs worked on, bilateral cataract surgery. Past Anesthesia/Blood Transfusion Reactions: No Reported Reaction Additional Past Anesthesia/Blood Transfusion Reaction / Comment(s): No blood transfusion. Date of Last Stent Placement:: UNKNOWN Past Psychological History: No Psychological Hx Reported Smoking Status: Former smoker Past Alcohol Use History: Rare Additional Past Alcohol Use History / Comment(s): QUIT SMOKING 2013, started smoking age 11, smoked 2ppd. Past Drug Use History: None Reported - Past Family History Mother Family Medical History: No Reported History Medications and Allergies Home Medications Medication Instructions Recorded Confirmed Type Tamsulosin HCl [Flomax] 0.4 mg PO DAILY 05/05/24 09/23/24 History metFORMIN HCL ER [Glucophage XR] 500 mg PO DAILY 05/05/24 09/23/24 History Atorvastatin [Lipitor] 80 mg PO HS #30 tab 05/06/24 09/23/24 Rx Clopidogrel [Plavix] 75 mg PO DAILY #30 tab 05/06/24 09/23/24 Rx Ascorbic Acid [Vitamin C] 1,000 mg PO DAILY 09/23/24 09/23/24 History Cholecalciferol (Vitamin D3) 50 mcg PO DAILY 09/23/24 09/23/24 History [Vitamin D3 (50 Mcg = 2000 Iu)] Losartan [Cozaar] 50 mg PO DAILY 09/23/24 09/23/24 History Magnesium 250 mg PO DAILY 09/23/24 09/23/24 History Red Yeast Rice 600 mg PO HS 09/23/24 09/23/24 History Vitamin E (Dl,Tocopheryl Acet) 400 unit PO DAILY 09/23/24 09/23/24 History [Vitamin E (400 Iu = 180 mg)] Zinc Gluconate [Zinc] 50 mg PO DAILY 09/23/24 09/23/24 History Allergies Allergy/AdvReac Type Severity Reaction Status Date / Time tamsulosin [From Flomax] Allergy Rash/Hives Verified 09/24/24 05:21 Physical Exam Vitals: Vital Signs Temp Pulse Pulse Resp BP BP Pulse Ox 09/24/24 06:50 97.3 F L 61 16 169/85 97 09/24/24 02:00 98 F 52 L 18 126/67 09/24/24 01:02 18 09/23/24 20:38 73 16 140/80 97 09/23/24 19:27 71 16 141/86 97 09/23/24 18:00 72 18 160/86 98 09/23/24 17:20 84 18 165/85 97 09/23/24 15:55 59 L 18 165/83 97 09/23/24 14:58 98.0 F 52 L 18 166/89 97 09/23/24 13:30 97.7 F 56 L 18 170/93 98 Intake and Output 09/23/24 09/24/24 09/24/24 22:59 06:59 14:59 Other: Voiding Method Toilet Toilet # Voids 1 2 Weight 79.379 kg Results 09/24/24 03:42 09/24/24 03:42 Cardiac Enzymes 09/23/24 09/23/24 09/23/24 Range/Units 10:40 10:40 16:29 AST 31 (17-59) U/L Troponin I <0.012 <0.012 (0.000-0.034) ng/mL 09/23/24 Range/Units 19:47 AST (17-59) U/L Troponin I <0.012 (0.000-0.034) ng/mL Lipids 09/24/24 Range/Units 03:42 Triglycerides 269.00 H (0.00-149.00) mg/dL Cholesterol 255.00 H (0.00-200.00) mg/dL HDL Cholesterol 36.50 L (40.00-60.00) mg/dL Cholesterol/HDL Ratio 6.99 Ratio CBC 09/24/24 Range/Units 03:42 WBC 7.70 (4.50-10.00) X 10*3/uL RBC 4.36 L (4.40-5.60) X 10*6/uL Hgb 12.2 L (13.0-17.0) g/dL Hct 36.9 L (39.6-50.0) % Plt Count 214 (140-440) X 10*3/uL Comprehensive Metabolic Panel 09/23/24 09/24/24 Range/Units 10:40 03:42 Sodium 133 L 137 (137-145) mmol/L Potassium 5.2 H 4.4 (3.5-5.1) mmol/L Chloride 102 103 (98-107) mmol/L Carbon Dioxide 20 L 18.8 L (22-30) mmol/L BUN 26 H 26.4 (9-20) mg/dL Creatinine 1.05 1.3 (0.66-1.25) mg/dL Glucose 237 H 200 H (74-99) mg/dL Calcium 9.4 9.0 (8.4-10.2) mg/dL AST 31 (17-59) U/L ALT 27 (4-49) U/L Alkaline Phosphatase 60 (38-126) U/L Total Protein 7.1 (6.3-8.2) g/dL Albumin 4.0 (3.5-5.0) g/dL Current Medications Generic Name Dose Route Start Last Admin Trade Name Freq PRN Reason Stop Dose Admin Amlodipine Besylate 5 mg 09/25/24 09:00 Amlodipine 5 Mg Tab PO DAILY [facility] Ascorbic Acid 1,000 mg 09/24/24 09:00 09/24/24 09:30 Ascorbic Acid 500 Mg Tab PO 1,000 mg DAILY [facility] Administration Aspirin 81 mg 09/24/24 09:00 09/24/24 09:30 Aspirin 81 Mg PO 81 mg DAILY [facility] Administration Atorvastatin Calcium 40 mg 09/24/24 21:00 Atorvastatin 40 Mg Tab PO [facility] Cholecalciferol 50 mcg 09/24/24 09:00 09/24/24 09:29 Cholecalciferol 25 Mcg (1000 Iu) Tablet PO 50 mcg DAILY [facility] Administration Clopidogrel Bisulfate 75 mg 09/24/24 09:00 09/24/24 09:29 Clopidogrel 75 Mg Tab PO 75 mg DAILY [facility] Administration Dapagliflozin 10 mg 09/25/24 09:00 Dapagliflozin Propanediol 10 Mg Tablet PO DAILY [facility] Dextrose/Water 25 ml 09/23/24 16:01 Dextrose 50% Syringe 50 Ml IVP PER PROTOCOL PRN Hypoglycemia Protocol Dextrose/Water 50 ml 09/23/24 16:01 Dextrose 50% Syringe 50 Ml IVP PER PROTOCOL PRN Hypoglycemia Protocol Ezetimibe 10 mg 09/24/24 12:15 Ezetimibe 10 Mg Tab PO DAILY [facility] Enoxaparin Sodium 40 mg 09/24/24 09:00 09/24/24 11:09 Enoxaparin 40 Mg/0.4 Ml Syringe SQ Not Given DAILY [facility] Insulin Human Lispro 0 unit 09/23/24 17:30 09/24/24 06:26 Insulin Lispro (Humalog) 100 Unit/Ml 10 Ml Vl SQ 2 unit ACHS [facility] Administration Protocol Losartan Potassium 50 mg 09/24/24 09:00 09/24/24 09:30 Losartan 50 Mg Tab PO 50 mg DAILY [facility] Administration Magnesium Oxide 400 mg 09/24/24 09:00 09/24/24 09:29 Magnesium Oxide 400 Mg Tab PO 400 mg DAILY [facility] Administration Nitroglycerin 1 inch 09/23/24 15:00 09/24/24 06:19 Nitroglycerin Oint 1 Inch/Gm Packet TOPICAL Not Given Q6HR [facility] Nitroglycerin 0.4 mg 09/23/24 14:34 Nitroglycerin Sl Tabs 0.4 Mg Tab SUBLINGUAL Q5M PRN Chest Pain Tamsulosin HCl 0.4 mg 09/24/24 09:00 09/24/24 07:38 Tamsulosin 0.4 Mg Cap.Er.24h PO Not Given DAILY [facility] Zinc Sulfate 220 mg 09/24/24 09:00 09/24/24 09:29 Zinc Sulfate 220 Mg Cap PO 220 mg DAILY [facility] Administration Intake and Output 09/23/24 09/24/24 09/24/24 22:59 06:59 14:59 Other: Voiding Method Toilet Toilet # Voids 1 2 Weight 79.379 kg 09/24/24 03:42 09/24/24 03:42
[2024-09-24 12:28] LABS: Glucose,Whole Blood 200 mg/dL (70-110)
[2024-09-24] MEDS: EZETIMIBE 10 MG TAB PO SCH (12:45)
--- NOTE | 2024-09-24 15:43 | P.PN ---
Subjective Progress Note Date: 09/24/24 Hospital Course: Patient is a pleasant 79-year-old male with a past medical history of CVA, PAD with previous lower extremity stenting, CAD status post stenting, hypertension, hyperlipidemia, BPH, CKD stage III, and vertigo. He presented to the emergency department with a chief complaint of left arm pain and tingling with hypertension. Patient reports left arm pain and tingling is similar to symptoms he felt when he had his previous stents placed. He denies having any headache, lightheadedness, dizziness, chest pain or palpitations, shortness of breath, cough or congestion, nausea or vomiting, or experiencing any numbness or weakness in his extremities. Patient reports he follows with fleet dispatch manager Dr. Newby. Patient recently underwent hospitalization on 09/20/2024 secondary to hypertensive urgency and headache. Upon arrival to our facility, patient underwent evaluation in the emergency department. Vital signs upon arrival show blood pressure 170/93, heart rate 56, respiratory rate 18, temp 97.7 F, and SpO2 of 98% on room air. EKG was completed showing sinus bradycardia 58 bpm. Chest x-ray completed negative for acute cardiopulmonary process. CT brain completed negative for acute intercranial process showing nonspecific white matter changes likely secondary to chronic small vessel ischemic disease. Labs were completed and reviewed. CBC unremarkable. BMP showing hyponatremia with sodium of 133 and hyperkalemia with potassium of 5.2 but was a hemolyzed specimen, bicarb was 20, BUN slightly elevated at 26 otherwise normal findings. Blood glucose also elevated at 237. Liver profile unremarkable. Troponin was negative at less than 0.012. Patient admitted under services with consultation to cardiology Physical exam: Patient seen and fully evaluated at bedside. He reports feeling great this morning and ready to go home. He currently denies having any left arm pain or discomfort and denies any other complaints including headache, lightheadedness, dizziness, chest pain, palpitations, or shortness of breath Vital signs reviewed and stable. General: Nontoxic, no distress and appears stated age. Derm: Skin warm and dry, normal coloration for ethnicity. Head: Atraumatic, normocephalic and symmetric. Eyes: EOM's intact, no lid lag, and anicteric sclera Mouth: no lip lesions, mucus membranes moist Cardiovascular: regular rate and rhythm with normal S1S2, no murmur, positive posterior tibial pulses bilaterally, and cap refill < 2 seconds. Lungs: Respirations even, regular, and unlabored on room air. Lungs CTA bilaterally, no rhonchi, no rales, no wheezing, and no accessory muscle usage. Abdominal: soft, nontender to palpation, no guarding, no appreciable organo megaly Ext: ROM intact. No gross muscle atrophy, no edema, no contractures Neuro: Speech clear, face symmetrical and CN II-XII grossly intact with no noted focal neuro deficits Psych: Alert and oriented to person, place, time, and situation. Appropriate and pleasant affect. Assessment and Plan of Care: Left arm pain and tingling, , rule out acute coronary event Hypertensive urgency History of CAD status post stenting History of hypertension Hyperlipidemia -Cardiology following, discussed plan of care with fleet dispatch manager Dr. Degroot. Recommending discontinuation of hydrochlorothiazide and starting patient on am lodipine 5 mg daily along with Farxiga 10 mg daily and monitoring patient for an additional 24 hours prior to cardiac clearance discharge. -Telemetry monitoring -Troponins trended all negative at less than 0.012 x 3 draws -Continue medication regimen with aspirin 81 mg daily, atorvastatin 80 mg nigh tly, Plavix 75 mg daily, and losartan 50 mg daily. In addition patient started on hydrochlorothiazide 25 mg daily at this time secondary to elevated pressures -Echocardiogram recently completed 05/2024 reported reveal a preserved EF of 55 to 60% with trace mitral regurgitation, trace to mild tricuspid regurgitation, and a small pericardial effusion. Diabetes mellitus with hyperglycemia -Patient newly diagnosed diabetes mellitus recently started on metformin. At this time we will hold metformin and place patient on glycemic protocol with NovoLog sliding scale History of PAD with previous lower extremity stenting History of CVA -Continue dual antiplatelet therapy with aspirin 81 mg daily, Plavix 75 mg daily , and atorvastatin 80 mg nightly. BPH -Continue daily medication regimen with Flomax 0.4 mg daily. Hyperkalemia. Lab error due to hemolyzed specimen. Repeat potassium 4.4 Data and imaging reviewed: Labs completed and reviewed. CBC showing normocytic anemia of 12.2. BMP showing hypocarbia with bicarb of 18.8 and elevated anion gap of 15.20. Blood glucose 200. Magnesium 2.0. Lipid profile showing elevated triglycerides of 269, cholesterol 255, LDL of 164.7, VLDL of 53.80, and HDL of 36.50 Blood pressure 169/85, heart rate 61, respiratory rate 16, temp 97.3 F, and SpO2 of 97% on room air CODE STATUS: Full code DVT prophylaxis: Lovenox Discussed with: Patient, RN, patient's at bedside, and fleet dispatch manager. Anticipated discharge date: Pending clinical course Anticipated discharge place: Home Patient was seen independently by Nurse Practitioner. This document was prepared using [employer] dictation software. Please allow for errors in seasoner while rare they do occur. Chase Jacobsen NP rendered care for this patient independently, reviewed the f indings and plan as documented in the note above and agree with plan. I did not physically speak with or examine the patient on this date. Objective - Vital Signs Vital signs: Vital Signs Temp 97.3 F L 09/24/24 06:50 Pulse 61 09/24/24 06:50 Resp 16 09/24/24 06:50 BP 169/85 09/24/24 06:50 Pulse Ox 97 09/24/24 06:50 FiO2 Intake & Output 09/23/24 09/24/24 09/24/24 18:59 06:59 18:59 Weight 79.379 kg 79.379 kg Other: Voiding Method Toilet # Voids 2 - Labs CBC & Chem 7: 09/24/24 03:42 09/24/24 03:42 Labs: Abnormal Lab Results - Last 24 Hours (Table) 09/23/24 09/23/24 09/23/24 Range/Units 10:40 10:40 17:13 RBC (4.40-5.60) X 10*6/uL Hgb (13.0-17.0) g/dL Hct (39.6-50.0) % MPV 9.3 L (9.5-12.2) fL Eosinophils # 0.67 H (0.04-0.35) 10*3/uL Basophils # 0.13 H (0.00-0.10) 10*3/uL Sodium 133 L (137-145) mmol/L Potassium 5.2 H (3.5-5.1) mmol/L Carbon Dioxide 20 L (22-30) mmol/L BUN 26 H (9-20) mg/dL Glucose 237 H (74-99) mg/dL POC Glucose (mg/dL) 180 H (70-110) mg/dL 0409/24/24 09/24/24 Range/Units 20:02 03:42 06:15 RBC 4.36 L (4.40-5.60) X 10*6/uL Hgb 12.2 L (13.0-17.0) g/dL Hct 36.9 L (39.6-50.0) % MPV (9.5-12.2) fL Eosinophils # (0.04-0.35) 10*3/uL Basophils # (0.00-0.10) 10*3/uL Sodium (137-145) mmol/L Potassium (3.5-5.1) mmol/L Carbon Dioxide (22-30) mmol/L BUN (9-20) mg/dL Glucose (74-99) mg/dL POC Glucose (mg/dL) 225 H 203 H (70-110) mg/dL
[2024-09-24] MEDS: amLODIPine 5 MG TAB PO STA (16:03)
[2024-09-24 17:35] LABS: Glucose,Whole Blood 148 mg/dL (70-110)
[2024-09-24 20:25] LABS: Glucose,Whole Blood 150 mg/dL (70-110)
[2024-09-24] MEDS: ATORVASTATIN 40 MG TAB PO SCH (22:00)
[2024-09-25 05:31] LABS: Glucose,Whole Blood 201 mg/dL (70-110)
[2024-09-25 07:29] VITALS: BP 126/70; PULSE 57; RESP 16; TEMP 97.4
[2024-09-25] MEDS: amLODIPine 5 MG TAB PO SCH (09:33)
[2024-09-25] MEDS: DAPAGLIFLOZIN PROPANEDIOL 10 MG TABLET PO SCH (09:34)
--- NOTE | 2024-09-25 12:06 | P.DS ---
Providers Date of admission: 09/23/24 14:36 Expected date of discharge: 09/25/24 Attending physician: Jeff Kitchen Consults: 09/23/24 14:34 Consult Physician Urgent Consulting Provider: Hayder Moncada Consult Reason/Comments: cp Do you want consulting provider notified?: Yes Primary care physician: Juanito Deluna [facility] Course: Discharge Diagnosis: Left arm pain and tingling, pain resolved after management of blood pressure and acute coronary event ruled out. Hypertensive urgency. Resolved. Patient discharged home on losartan 50 mg daily and amlodipine 5 mg daily. Vital signs upon discharge show blood pressure 126/70, heart rate 57, respiratory rate 16, temp 97.4 F, and SpO2 of 98% on room air History of CAD status post stenting. History of hypertension Hyperlipidemia. Lipid profile showing elevated triglycerides of 269.00, total cholesterol of 255.00, LDL of 164.7, VLDL of 53.80, and HDL low at 36.50. Patient discharged home on Zetia 10 mg daily in addition to his atorvastatin 80 mg nightly. Diabetes mellitus with hyperglycemia. Continue metformin 500 mg daily along with Farxiga 10 mg daily. History of PAD with previous lower extremity stenting. Continue Plavix 75 mg daily and atorvastatin 80 mg nightly. History of CVA. Continue Plavix 75 mg daily and atorvastatin 80 mg nightly. BPH. Patient previously on Flomax 0.4 mg daily but states he no longer is taking because he is allergic and this was discontinued by his PCP prior to arrival at our facility.. Hyperkalemia. Resolved. Lab error due to hemolyzed specimen. Repeat potassium 4.4 Hospital Course: Patient is a pleasant 79-year-old male with a past medical history of CVA, PAD with previous lower extremity stenting, CAD status post stenting, hypertension, hyperlipidemia, BPH, CKD stage III, and vertigo. He presented to the emergency department with a chief complaint of left arm pain and tingling with hypertension. Patient reports left arm pain and tingling is similar to symptoms he felt when he had his previous stents placed. He denies having any headache, lightheadedness, dizziness, chest pain or palpitations, shortness of breath, cough or congestion, nausea or vomiting, or experiencing any numbness or weakness in his extremities. Patient reports he follows with city councilman Dr. Newby. Patient recently underwent hospitalization on 09/20/2024 secondary to hypertensive urgency and headache. Upon arrival to our facility, patient underwent evaluation in the emergency department. Vital signs upon arrival show blood pressure 170/93, heart rate 56, respiratory rate 18, temp 97.7 F, and SpO2 of 98% on room air. EKG was completed showing sinus bradycardia 58 bpm. Chest x-ray completed negative for acute cardiopulmonary process. CT brain completed negative for acute intercranial process showing nonspecific white matter changes likely secondary to chronic small vessel ischemic disease. Labs were completed and reviewed. CBC unremarkable. BMP showing hyponatremia with sodium of 133 and hyperkalemia with potassium of 5.2 but was a hemolyzed specimen, bicarb was 20, BUN slightly elevated at 26 otherwise normal findings. Blood glucose also elevated at 237. Liver profile unremarkable. Troponin was negative at less than 0.012. Patient admitted under services with consultation to cardiology. Troponins were trended all negative at less than 0.012 x 3 draws. Lipid profile showing elevated triglycerides of 269.00, total cholesterol of 255.00, LDL of 164.7, VLDL of 53.80, and HDL low at 36.50. Patient cleared from cardiac perspective and is medically optimized for discharge at this time. Medication changes were made for patient's hypertensive urgency and continued elevated lipid profile despite already taking atorvastatin 80 mg nightly. Blood pressures now stabilized. Patient discharged home with prescriptions for Farxiga 10 mg daily, amlodipine 5 mg daily, and Zetia 10 mg daily. Patient to follow-up outpatient with PCP in 1 to 2 days and with city councilman in 1 week. Physical exam: Vital signs reviewed and stable. General: Nontoxic, no distress and appears stated age. Derm: Skin warm and dry, normal coloration for ethnicity. Head: Atraumatic, normocephalic and symmetric. Eyes: EOM's intact, no lid lag, and anicteric sclera Mouth: no lip lesions, mucus membranes moist Cardiovascular: regular rate and rhythm with normal S1S2, no murmur, positive posterior tibial pulses bilaterally, and cap refill < 2 seconds. Lungs: Respirations even, regular, and unlabored on room air. Lungs CTA bilaterally, no rhonchi, no rales, no wheezing, and no accessory muscle usage. Abdominal: soft, nontender to palpation, no guarding, no appreciable organomegaly Ext: ROM intact. No gross muscle atrophy, no edema, no contractures Neuro: Speech clear, face symmetrical and CN II-XII grossly intact with no noted focal neuro deficits Psych: Alert and oriented to person, place, time, and situation. Appropriate and pleasant affect. A total of 34 minutes of time were spent preparing this complex discharge summary. Pt was discharged on 09/25/2024 at 10:51 AM. Patient was seen independently by Nurse Practitioner. This document was prepared using [employer] dictation software. Please allow for errors in financial sales representative while rare they do occur. Chase Jacobsen NP rendered care for this patient independently, reviewed the findings and plan as documented in the note above. I did not physically speak with or examine the patient on this date. Patient Condition at Discharge: Stable Plan - Discharge Summary Discharge Rx Participant: No New Discharge Prescriptions: New Dapagliflozin Propanediol [Farxiga] 10 mg PO DAILY 30 Days #30 tab amLODIPine [Norvasc] 5 mg PO DAILY 30 Days #30 tab Ezetimibe [Zetia] 10 mg PO DAILY 30 Days #30 tab Continue metFORMIN HCL ER [Glucophage XR] 500 mg PO DAILY Atorvastatin [Lipitor] 80 mg PO HS #30 tab Clopidogrel [Plavix] 75 mg PO DAILY #30 tab Zinc Gluconate [Zinc] 50 mg PO DAILY Vitamin E (Dl,Tocopheryl Acet) [Vitamin E (400 Iu = 180 mg)] 400 unit PO DAILY Cholecalciferol (Vitamin D3) [Vitamin D3 (50 Mcg = 2000 Iu)] 50 mcg PO DAILY Losartan [Cozaar] 50 mg PO DAILY Ascorbic Acid [Vitamin C] 1,000 mg PO DAILY Red Yeast Rice 600 mg PO HS Magnesium 250 mg PO DAILY Discharge Medication List metFORMIN HCL ER [Glucophage XR] 500 mg PO DAILY 05/05/24 [History] Atorvastatin [Lipitor] 80 mg PO HS #30 tab 05/06/24 [Rx] Clopidogrel [Plavix] 75 mg PO DAILY #30 tab 05/06/24 [Rx] Ascorbic Acid [Vitamin C] 1,000 mg PO DAILY 09/23/24 [History] Cholecalciferol (Vitamin D3) [Vitamin D3 (50 Mcg = 2000 Iu)] 50 mcg PO DAILY 09/23/24 [History] Losartan [Cozaar] 50 mg PO DAILY 09/23/24 [History] Magnesium 250 mg PO DAILY 09/23/24 [History] Red Yeast Rice 600 mg PO HS 09/23/24 [History] Vitamin E (Dl,Tocopheryl Acet) [Vitamin E (400 Iu = 180 mg)] 400 unit PO DAILY 09/23/24 [History] Zinc Gluconate [Zinc] 50 mg PO DAILY 09/23/24 [History] Dapagliflozin Propanediol [Farxiga] 10 mg PO DAILY 30 Days #30 tab 09/25/24 [Rx] Ezetimibe [Zetia] 10 mg PO DAILY 30 Days #30 tab 09/25/24 [Rx] amLODIPine [Norvasc] 5 mg PO DAILY 30 Days #30 tab 09/25/24 [Rx] Follow up Appointment(s)/Referral(s): Kye Newyb MD [STAFF PHYSICIAN] - 1 Week Juanito Sanchez MD [Primary Care Provider] - 1-2 Days Patient Instructions/Handouts: Hypertensive Crisis (DC) Activity/Diet/Wound Care/Special Instructions: Activity: As tolerated. Take breaks as needed. Diet: Heart healthy and carb consistent diet. Avoid salts, or foods with hidden salts such as canned or boxed foods and frozen dinners. Extra salt makes your heart work harder and traps the fluid in your body for longer. Special Instructions: Take all of your medications as directed and remember to keep all of your doctor's appointments and follow-up as needed. Thank you for allowing us to participate in your care, it was truly a pleasure having you for our patient!!! Discharge Disposition: HOME SELF-CARE
== END 2024-09-25 11:35 | disposition home or self-care (01) ==
LOC: SUPCPDRO 09:24 → EC 09:24 → 6NMEDSUR 14:36
PROVIDERS: ADMIT Student in an Organized Health Care Education/Training Program; ATTEND Student in an Organized Health Care Education/Training Program
DX: I16.0 Hypertensive urgency (principal); E87.1 Hypo-osmolality and hyponatremia; E87.5 Hyperkalemia; E11.65 Type 2 diabetes mellitus with hyperglycemia; I12.9 Hypertensive chronic kidney disease with stage 1 through stage 4 chronic kidney disease, or unspecified chronic kidney disease; N18.30 Chronic kidney disease, stage 3 unspecified; E11.22 Type 2 diabetes mellitus with diabetic chronic kidney disease; I25.82 Chronic total occlusion of coronary artery; E11.51 Type 2 diabetes mellitus with diabetic peripheral angiopathy without gangrene; N40.0 Benign prostatic hyperplasia without lower urinary tract symptoms; I25.10 Atherosclerotic heart disease of native coronary artery without angina pectoris; R00.1 Bradycardia, unspecified; M79.602 Pain in left arm; R20.2 Paresthesia of skin; D64.9 Anemia, unspecified; E78.1 Pure hyperglyceridemia; I31.39 Other pericardial effusion (noninflammatory); I08.1 Rheumatic disorders of both mitral and tricuspid valves; Z79.84 Long term (current) use of oral hypoglycemic drugs; Z79.02 Long term (current) use of antithrombotics/antiplatelets; Z79.899 Other long term (current) drug therapy; Z88.8 Allergy status to other drugs, medicaments and biological substances; Z95.5 Presence of coronary angioplasty implant and graft; Z95.828 Presence of other vascular implants and grafts; Z87.891 Personal history of nicotine dependence; Z86.73 Personal history of transient ischemic attack (TIA), and cerebral infarction without residual deficits
CPT/HCPCS: 96372; 99285; 36415; 80061; 80053; 80048; 83735; 84484; 85025; 85027; 71046; 70450; G0378 ×3; J1650; 93005